=== PATIENT | male | born 1960 | race Caucasian/White ===

== ENCOUNTER 2020-09-28 09:40 | Outpatient (REF) | payer BC, SELFPAY ==
[2020-09-28 10:18] LABS: MANUAL DIFF FLAG NO
[2020-09-28 10:21] LABS: Basophils Absolute Auto 0.1 X10*3/uL (0.0-0.2); Basophils Percent Auto 0.6 % (0-2); Eosinophils Absolute Auto 0.3 X10*3/uL (0.0-0.4); Eosinophils Percent Auto 3.1 % (0-4); Hematocrit 40.4 % (42-52); Hemoglobin 13.5 g/dl (14.0-18.0); Imm Gran Abs Auto 0.13 X10*3/uL (0.00-0.03); Imm Gran Pct Auto 1.5 % (0.0-0.4); Lymphocytes Absolute Auto 1.6 X10*3/uL (1.2-4.9); Lymphocytes Percent Auto 17.6 % (20-40); Mean Corpuscular HGB Conc 33.4 g/dl (31.0-36.0); Mean Corpuscular Hemoglobin 30.6 pg (27.0-33.0); Mean Corpuscular Volume 91.6 fL (80-98); Mean Platelet Volume 9.1 fL (9.4-12.4); Monocytes Absolute Auto 0.9 X10*3/uL (0.1-1.2); Monocytes Percent Auto 9.9 % (2-11); Neutrophils Percent Auto 67.3 % (45-73); Platelet Count 311 X10*3/uL (160-400); Red Blood Count 4.41 X10*6/uL (4.60-5.80); Red Cell Distribution Width 12.8 % (11.0-16.0); White Blood Count 8.9 X10*3/uL (4.8-10.8)
[2020-09-28 10:41] LABS: Alanine Aminotransferase 46 U/L (0-40); Albumin Level 4.4 g/dL (3.5-5.0); Alkaline Phosphatase 75 U/L (39-117); Anion Gap 11 (12-20); Aspartate Amino Transferase 27 U/L (5-37); Bilirubin Total 0.5 mg/dL (0.0-1.0); Blood Urea Nitrogen 22 mg/dL (9-16); Calcium 9.1 mg/dL (8.4-10.2); Carbon Dioxide 29 mmol/L (22-29); Chloride 105 mmol/L (96-108); Cholesterol 195 mg/dL; Estimated Glomerular Filt Rate > 60; Glucose Fasting 97 mg/dL (60-99); HDL Cholesterol 50 mg/dL; LDL Cholesterol Calculated 125 mg/dl; Potassium 4.2 mmol/l (3.3-5.1); Sodium 141 mmol/L (135-145); Total Protein 6.5 g/dL (6.5-8.0); Triglycerides 100 mg/dL
[2020-09-28 11:03] LABS: HIV AB/AG Nonreactive (Nonreactive); HIV Num 1 0.16 S/CO (0.00-0.99)
== END 2020-09-28 09:41 | disposition home or self-care (01) ==
LOC: HO.LAB 09:40
PROVIDERS: PCP Internal Medicine Medical Oncology; Visit Provider Internal Medicine Medical Oncology
DX: N40.0 Benign prostatic hyperplasia without lower urinary tract symptoms (principal); E78.2 Mixed hyperlipidemia; I10 Essential (primary) hypertension; E66.3 Overweight
CPT/HCPCS: 36415; 80053; 80061; 85025; 87389

== ENCOUNTER 2021-01-24 08:04 | Outpatient (REF) | payer BC, SELFPAY ==
[2021-01-24 08:39] LABS: MANUAL DIFF FLAG NO
[2021-01-24 08:55] LABS: Basophils Absolute Auto 0.1 X10*3/uL (0.0-0.2); Basophils Percent Auto 0.8 % (0-2); Eosinophils Absolute Auto 0.3 X10*3/uL (0.0-0.4); Hematocrit 45.6 % (42-52); Hemoglobin 15.1 g/dl (14.0-18.0); Imm Gran Abs Auto 0.06 X10*3/uL (0.00-0.03); Imm Gran Pct Auto 0.8 % (0.0-0.4); Lymphocytes Absolute Auto 1.5 X10*3/uL (1.2-4.9); Lymphocytes Percent Auto 18.6 % (20-40); Mean Corpuscular HGB Conc 33.1 g/dl (31.0-36.0); Mean Corpuscular Hemoglobin 29.4 pg (27.0-33.0); Mean Corpuscular Volume 88.7 fL (80-98); Mean Platelet Volume 9.3 fL (9.4-12.4); Monocytes Percent Auto 12.3 % (2-11); Neutrophils Percent Auto 63.5 % (45-73); Platelet Count 330 X10*3/uL (160-400); Red Blood Count 5.14 X10*6/uL (4.60-5.80); Red Cell Distribution Width 12.2 % (11.0-16.0); White Blood Count 7.8 X10*3/uL (4.8-10.8)
[2021-01-24 09:23] LABS: HIV AB/AG Nonreactive (Nonreactive); HIV Num 1 0.06 S/CO (0.00-0.99)
[2021-01-24 09:49] LABS: Alanine Aminotransferase 52 U/L (0-40); Albumin Level 4.6 g/dL (3.5-5.0); Alkaline Phosphatase 85 U/L (39-117); Anion Gap 12 (12-20); Aspartate Amino Transferase 36 U/L (5-37); Bilirubin Total 0.8 mg/dL (0.0-1.0); Blood Urea Nitrogen 20 mg/dL (9-16); Calcium 9.8 mg/dL (8.4-10.2); Carbon Dioxide 28 mmol/L (22-29); Chloride 105 mmol/L (96-108); Cholesterol 209 mg/dL; Estimated Glomerular Filt Rate 57; Glucose Fasting 110 mg/dL (60-99); HDL Cholesterol 49 mg/dL; LDL Cholesterol Calculated 146 mg/dl; Potassium 4.1 mmol/L (3.3-5.1); Sodium 141 mmol/L (135-145); Triglycerides 73 mg/dL
[2021-01-24 10:10] LABS: Prostate Specific Antigen 2.96 ng/mL (<0.05-4.0); Vitamin D 25-OH Total 28.9 ng/mL (>30)
== END 2021-01-24 08:05 | disposition home or self-care (01) ==
LOC: HO.LAB 08:04
PROVIDERS: PCP Internal Medicine Medical Oncology; Visit Provider Internal Medicine Medical Oncology
DX: N40.0 Benign prostatic hyperplasia without lower urinary tract symptoms (principal); E78.2 Mixed hyperlipidemia; I10 Essential (primary) hypertension; E66.3 Overweight; Z12.5 Encounter for screening for malignant neoplasm of prostate
CPT/HCPCS: 36415; 80053; 80061; 82306; 84153; 85025; 87389

== ENCOUNTER 2021-06-13 08:33 | Outpatient (REF) | payer BC, SELFPAY ==
[2021-06-13 09:18] LABS: MANUAL DIFF FLAG NO
[2021-06-13 09:25] LABS: Basophils Absolute Auto 0.1 X10*3/uL (0.0-0.2); Basophils Percent Auto 0.6 % (0-2); Eosinophils Absolute Auto 0.4 X10*3/uL (0.0-0.4); Eosinophils Percent Auto 5.2 % (0-4); Hematocrit 44.9 % (42-52); Hemoglobin 14.7 g/dl (14.0-18.0); Imm Gran Abs Auto 0.12 X10*3/uL (0.00-0.03); Imm Gran Pct Auto 1.5 % (0.0-0.4); Lymphocytes Absolute Auto 1.4 X10*3/uL (1.2-4.9); Lymphocytes Percent Auto 17.5 % (20-40); Mean Corpuscular HGB Conc 32.7 g/dl (31.0-36.0); Mean Corpuscular Hemoglobin 29.5 pg (27.0-33.0); Mean Corpuscular Volume 90.2 fL (80-98); Mean Platelet Volume 9.3 fL (9.4-12.4); Monocytes Absolute Auto 0.8 X10*3/uL (0.1-1.2); Monocytes Percent Auto 9.7 % (2-11); Neutrophils Absolute Auto 5.2 X10*3/uL (2.0-8.3); Neutrophils Percent Auto 65.5 % (45-73); Platelet Count 310 X10*3/uL (160-400); Red Blood Count 4.98 X10*6/uL (4.60-5.80); Red Cell Distribution Width 12.9 % (11.0-16.0)
[2021-06-13 10:06] LABS: Alanine Aminotransferase 34 U/L (0-40); Albumin Level 4.5 g/dL (3.5-5.0); Alkaline Phosphatase 75 U/L (39-117); Anion Gap 12 (12-20); Aspartate Amino Transferase 25 U/L (5-37); Bilirubin Total 0.6 mg/dL (0.0-1.0); Blood Urea Nitrogen 22 mg/dL (9-16); Calcium 9.7 mg/dL (8.4-10.2); Carbon Dioxide 30 mmol/L (22-29); Chloride 103 mmol/L (96-108); Cholesterol 196 mg/dL; Estimated Glomerular Filt Rate > 60; Glucose Fasting 97 mg/dL (60-99); HDL Cholesterol 50 mg/dL; LDL Cholesterol Calculated 123 mg/dl; Potassium 4.5 mmol/L (3.3-5.1); Sodium 140 mmol/L (135-145); Total Protein 6.7 g/dL (6.5-8.0); Triglycerides 118 mg/dL
[2021-06-13 10:17] LABS: HIV AB/AG Nonreactive (Nonreactive); HIV Num 1 0.08 S/CO (0.00-0.99)
== END 2021-06-13 08:34 | disposition home or self-care (01) ==
LOC: HO.LAB 08:33
PROVIDERS: PCP Internal Medicine Medical Oncology; Visit Provider Internal Medicine Medical Oncology
DX: Z00.00 Encounter for general adult medical examination without abnormal findings (principal); E78.2 Mixed hyperlipidemia; E66.3 Overweight; Z20.6 Contact with and (suspected) exposure to human immunodeficiency virus [HIV]
CPT/HCPCS: 36415; 80053; 80061; 85025; 87389

== ENCOUNTER 2021-10-11 09:21 | Outpatient (REF) | payer BC, SELFPAY ==
[2021-10-11 09:53] LABS: MANUAL DIFF FLAG NO
[2021-10-11 10:34] LABS: Basophils Percent Auto 0.4 % (0-2); Eosinophils Absolute Auto 0.2 X10*3/uL (0.0-0.4); Eosinophils Percent Auto 2.7 % (0-4); Hematocrit 44.4 % (42.0-52.0); Hemoglobin 14.5 g/dl (14.0-18.0); Imm Gran Abs Auto 0.07 X10*3/uL (0.00-0.03); Imm Gran Pct Auto 0.8 % (0.0-0.4); Lymphocytes Absolute Auto 1.6 X10*3/uL (1.2-4.9); Mean Corpuscular HGB Conc 32.7 g/dl (31.0-36.0); Mean Corpuscular Hemoglobin 29.8 pg (27.0-33.0); Mean Corpuscular Volume 91.4 fL (80.0-98.0); Mean Platelet Volume 9.1 fL (9.4-12.4); Monocytes Absolute Auto 0.8 X10*3/uL (0.1-1.2); Monocytes Percent Auto 9.4 % (2-11); Neutrophils Absolute Auto 5.7 x10*3/uL (2.0-8.3); Neutrophils Percent Auto 67.7 % (45-73); Platelet Count 329 X10*3/uL (160-400); Red Blood Count 4.86 X10*6/uL (4.60-5.80); Red Cell Distribution Width 12.4 % (11.0-16.0); White Blood Count 8.4 X10*3/uL (4.8-10.8)
[2021-10-11 11:07] LABS: Alanine Aminotransferase 49 U/L (0-40); Albumin Level 4.6 g/dL (3.5-5.0); Alkaline Phosphatase 71 U/L (39-117); Anion Gap 12 (12-20); Aspartate Amino Transferase 34 U/L (5-37); Bilirubin Total 0.7 mg/dL (0.0-1.0); Blood Urea Nitrogen 27 mg/dL (9-16); Calcium 10.1 mg/dL (8.4-10.2); Carbon Dioxide 29 mmol/L (22-29); Chloride 105 mmol/L (96-108); Cholesterol 195 mg/dL; Estimated Glomerular Filt Rate > 60; Glucose Fasting 101 mg/dL (60-99); HDL Cholesterol 59 mg/dL; LDL Cholesterol Calculated 122 mg/dl; Potassium 4.3 mmol/L (3.3-5.1); Sodium 142 mmol/L (135-145); Triglycerides 71 mg/dL
[2021-10-11 11:17] LABS: HIV AB/AG Nonreactive (Nonreactive); HIV Num 1 0.07 S/CO (0.00-0.99)
== END 2021-10-11 09:22 | disposition home or self-care (01) ==
LOC: HO.LAB 09:21
PROVIDERS: PCP Internal Medicine Medical Oncology; Visit Provider Internal Medicine Medical Oncology
DX: Z11.4 Encounter for screening for human immunodeficiency virus [HIV] (principal); N40.0 Benign prostatic hyperplasia without lower urinary tract symptoms; E78.2 Mixed hyperlipidemia; Z20.6 Contact with and (suspected) exposure to human immunodeficiency virus [HIV]
CPT/HCPCS: 36415; 80053; 80061; 85025; 87389

== ENCOUNTER 2022-02-06 07:16 | Outpatient (REF) | payer BC, SELFPAY ==
[2022-02-06 07:51] LABS: MANUAL DIFF FLAG NO
[2022-02-06 08:03] LABS: Basophils Absolute Auto 0.1 X10*3/uL (0.0-0.2); Basophils Percent Auto 0.8 % (0-2); Eosinophils Absolute Auto 0.4 X10*3/uL (0.0-0.4); Eosinophils Percent Auto 4.1 % (0-4); Hemoglobin 15.2 g/dl (14.0-18.0); Imm Gran Abs Auto 0.09 X10*3/uL (0.00-0.03); Imm Gran Pct Auto 1.1 % (0.0-0.4); Lymphocytes Absolute Auto 1.4 X10*3/uL (1.2-4.9); Lymphocytes Percent Auto 16.7 % (20-40); Mean Corpuscular Hemoglobin 29.5 pg (27.0-33.0); Mean Corpuscular Volume 89.1 fL (80.0-98.0); Mean Platelet Volume 9.3 fL (9.4-12.4); Monocytes Absolute Auto 0.8 X10*3/uL (0.1-1.2); Monocytes Percent Auto 9.5 % (2-11); Neutrophils Absolute Auto 5.8 x10*3/uL (2.0-8.3); Neutrophils Percent Auto 67.8 % (45-73); Platelet Count 320 X10*3/uL (160-400); Red Blood Count 5.16 X10*6/uL (4.60-5.80); Red Cell Distribution Width 12.2 % (11.0-16.0); White Blood Count 8.5 X10*3/uL (4.8-10.8)
[2022-02-06 08:30] LABS: Alanine Aminotransferase 53 U/L (0-40); Albumin Level 4.4 g/dL (3.5-5.0); Alkaline Phosphatase 83 U/L (39-117); Anion Gap 13 (12-20); Aspartate Amino Transferase 29 U/L (5-37); Bilirubin Total 0.6 mg/dL (0.0-1.0); Blood Urea Nitrogen 19 mg/dL (9-16); Calcium 10.1 mg/dL (8.4-10.2); Carbon Dioxide 28 mmol/L (22-29); Chloride 104 mmol/L (96-108); Estimated Glomerular Filt Rate > 60; Glucose Fasting 108 mg/dL (60-99); Potassium 4.9 mmol/L (3.3-5.1); Sodium 140 mmol/L (135-145); Total Protein 7.1 g/dL (6.5-8.0)
[2022-02-06 08:47] LABS: HIV AB/AG Nonreactive (Nonreactive); HIV Num 1 0.05 S/CO (0.00-0.99)
== END 2022-02-06 07:17 | disposition home or self-care (01) ==
LOC: HO.LAB 07:16
PROVIDERS: PCP Internal Medicine Medical Oncology; Visit Provider Internal Medicine Medical Oncology
DX: Z11.4 Encounter for screening for human immunodeficiency virus [HIV] (principal); I10 Essential (primary) hypertension; R97.20 Elevated prostate specific antigen [PSA]; Z20.6 Contact with and (suspected) exposure to human immunodeficiency virus [HIV]
CPT/HCPCS: 36415; 80053; 85025; 87389

== ENCOUNTER 2022-08-28 08:41 | Outpatient (REF) | payer BC, SELFPAY ==
[2022-08-28 09:02] LABS: MANUAL DIFF FLAG NO
[2022-08-28 09:55] LABS: Basophils Absolute Auto 0.1 X10*3/uL (0.0-0.2); Eosinophils Absolute Auto 0.4 X10*3/uL (0.0-0.4); Eosinophils Percent Auto 6.1 % (0-4); Hematocrit 42.7 % (42.0-52.0); Hemoglobin 14.2 g/dl (14.0-18.0); Imm Gran Abs Auto 0.05 X10*3/uL (0.00-0.03); Imm Gran Pct Auto 0.7 % (0.0-0.4); Lymphocytes Absolute Auto 1.4 X10*3/uL (1.2-4.9); Mean Corpuscular HGB Conc 33.3 g/dl (31.0-36.0); Mean Corpuscular Hemoglobin 29.9 pg (27.0-33.0); Mean Corpuscular Volume 89.9 fL (80.0-98.0); Mean Platelet Volume 9.5 fL (9.4-12.4); Monocytes Absolute Auto 0.8 X10*3/uL (0.1-1.2); Monocytes Percent Auto 11.3 % (2-11); Neutrophils Absolute Auto 4.5 x10*3/uL (2.0-8.3); Neutrophils Percent Auto 61.9 % (45-73); Platelet Count 313 X10*3/uL (160-400); Red Blood Count 4.75 X10*6/uL (4.60-5.80); Red Cell Distribution Width 12.5 % (11.0-16.0); White Blood Count 7.3 X10*3/uL (4.8-10.8)
[2022-08-28 10:32] LABS: HIV AB/AG Nonreactive (Nonreactive); HIV Num 1 0.07 S/CO (0.00-0.99)
[2022-08-28 11:24] LABS: Alanine Aminotransferase 40 U/L (0-40); Albumin Level 4.3 g/dL (3.5-5.0); Alkaline Phosphatase 79 U/L (39-117); Anion Gap 11 (12-20); Aspartate Amino Transferase 24 U/L (5-37); Bilirubin Total 0.6 mg/dL (0.0-1.0); Blood Urea Nitrogen 23 mg/dL (9-16); Calcium 9.4 mg/dL (8.4-10.2); Carbon Dioxide 29 mmol/L (22-29); Chloride 108 mmol/L (96-108); Cholesterol 182 mg/dL; Estimated Glomerular Filt Rate > 60; Glucose Fasting 101 mg/dL (60-99); HDL Cholesterol 41 mg/dL; LDL Cholesterol Calculated 118 mg/dl; Potassium 4.5 mmol/L (3.3-5.1); Sodium 143 mmol/L (135-145); Total Protein 6.4 g/dL (6.5-8.0); Triglycerides 117 mg/dL
[2022-08-28 11:53] LABS: Prostate Specific Antigen 3.41 ng/mL (<0.05-4.0)
== END 2022-08-28 08:42 | disposition home or self-care (01) ==
LOC: HO.LAB 08:41
PROVIDERS: PCP Internal Medicine Medical Oncology; Visit Provider Internal Medicine Medical Oncology
DX: Z11.4 Encounter for screening for human immunodeficiency virus [HIV] (principal); Z12.5 Encounter for screening for malignant neoplasm of prostate; Z20.6 Contact with and (suspected) exposure to human immunodeficiency virus [HIV]
CPT/HCPCS: 36415; 80053; 80061; 84153; 85025; 87389

== ENCOUNTER 2022-12-25 08:20 | Outpatient (REF) | payer BC, SELFPAY ==
[2022-12-25 08:41] LABS: MANUAL DIFF FLAG NO
[2022-12-25 09:05] LABS: Basophils Absolute Auto 0.1 X10*3/uL (0.0-0.2); Basophils Percent Auto 0.9 % (0-2); Eosinophils Absolute Auto 0.4 X10*3/uL (0.0-0.4); Eosinophils Percent Auto 4.8 % (0-4); Hematocrit 45.6 % (42.0-52.0); Hemoglobin 15.2 g/dl (14.0-18.0); Imm Gran Abs Auto 0.07 X10*3/uL (0.00-0.03); Imm Gran Pct Auto 0.8 % (0.0-0.4); Lymphocytes Absolute Auto 1.5 X10*3/uL (1.2-4.9); Lymphocytes Percent Auto 16.8 % (20-40); Mean Corpuscular HGB Conc 33.3 g/dl (31.0-36.0); Mean Corpuscular Hemoglobin 29.2 pg (27.0-33.0); Mean Corpuscular Volume 87.5 fL (80.0-98.0); Mean Platelet Volume 9.1 fL (9.4-12.4); Monocytes Absolute Auto 0.9 X10*3/uL (0.1-1.2); Monocytes Percent Auto 9.7 % (2-11); Neutrophils Absolute Auto 6.1 x10*3/uL (2.0-8.3); Platelet Count 314 X10*3/uL (160-400); Red Blood Count 5.21 X10*6/uL (4.60-5.80); Red Cell Distribution Width 12.6 % (11.0-16.0)
[2022-12-25 09:47] LABS: Alanine Aminotransferase 49 U/L (0-40); Albumin Level 4.6 g/dL (3.5-5.0); Alkaline Phosphatase 90 U/L (39-117); Anion Gap 14 (12-20); Aspartate Amino Transferase 31 U/L (5-37); Bilirubin Total 0.8 mg/dL (0.0-1.0); Blood Urea Nitrogen 25 mg/dL (9-16); Calcium 9.8 mg/dL (8.4-10.2); Carbon Dioxide 28 mmol/L (22-29); Chloride 104 mmol/L (96-108); Cholesterol 226 mg/dL; Estimated Glomerular Filt Rate 56; Glucose Fasting 95 mg/dL (60-99); HDL Cholesterol 46 mg/dL; LDL Cholesterol Calculated 150 mg/dl; Sodium 142 mmol/L (135-145); Triglycerides 151 mg/dL
[2022-12-25 10:07] LABS: Prostate Specific Antigen 2.39 ng/mL (<0.05-4.0)
[2022-12-25 10:08] LABS: HIV AB/AG Nonreactive (Nonreactive); HIV Num 1 0.06 S/CO (0.00-0.99)
== END 2022-12-25 08:21 | disposition home or self-care (01) ==
LOC: HO.LAB 08:20
PROVIDERS: PCP Internal Medicine Medical Oncology; Visit Provider Internal Medicine Medical Oncology
DX: Z12.5 Encounter for screening for malignant neoplasm of prostate (principal); Z11.4 Encounter for screening for human immunodeficiency virus [HIV]; N40.0 Benign prostatic hyperplasia without lower urinary tract symptoms; E78.2 Mixed hyperlipidemia; I10 Essential (primary) hypertension; R97.20 Elevated prostate specific antigen [PSA]
CPT/HCPCS: 36415; 80053; 80061; 84153; 85025; 87389

== ENCOUNTER 2023-09-06 06:55 | Outpatient (REF) | payer BC, SELFPAY ==
[2023-09-06 07:10] LABS: MANUAL DIFF FLAG NO
[2023-09-06 07:52] LABS: Basophils Absolute Auto 0.1 X10*3/uL (0.0-0.2); Basophils Percent Auto 0.9 % (0-2); Eosinophils Absolute Auto 0.4 X10*3/uL (0.0-0.4); Eosinophils Percent Auto 4.1 % (0-4); Hematocrit 47.9 % (42.0-52.0); Hemoglobin 15.7 g/dl (14.0-18.0); Imm Gran Abs Auto 0.11 X10*3/uL (0.00-0.03); Imm Gran Pct Auto 1.2 % (0.0-0.4); Lymphocytes Absolute Auto 1.6 X10*3/uL (1.2-4.9); Lymphocytes Percent Auto 16.7 % (20-40); Mean Corpuscular HGB Conc 32.8 g/dl (31.0-36.0); Mean Corpuscular Hemoglobin 29.5 pg (27.0-33.0); Mean Platelet Volume 8.9 fL (9.4-12.4); Monocytes Absolute Auto 0.8 X10*3/uL (0.1-1.2); Monocytes Percent Auto 8.6 % (2-11); Neutrophils Absolute Auto 6.4 x10*3/uL (2.0-8.3); Neutrophils Percent Auto 68.5 % (45-73); Platelet Count 437 X10*3/uL (160-400); Red Blood Count 5.32 X10*6/uL (4.60-5.80); Red Cell Distribution Width 12.2 % (11.0-16.0); White Blood Count 9.3 X10*3/uL (4.8-10.8)
[2023-09-06 08:14] LABS: Alanine Aminotransferase 43 U/L (0-40); Albumin Level 4.7 g/dL (3.5-5.0); Alkaline Phosphatase 83 U/L (39-117); Anion Gap 13 (12-20); Aspartate Amino Transferase 28 U/L (5-37); Bilirubin Total 0.5 mg/dL (0.0-1.0); Blood Urea Nitrogen 17 mg/dL (9-16); Calcium 10.1 mg/dL (8.4-10.2); Carbon Dioxide 28 mmol/L (22-29); Chloride 105 mmol/L (96-108); Cholesterol 219 mg/dL (<200); Estimated Glomerular Filt Rate > 60; Glucose Random 120 mg/dL (60-115); HDL Cholesterol 48 mg/dL (>40); LDL Cholesterol Calculated 143 mg/dL (<100); Sodium 142 mmol/L (135-145); Total Protein 7.8 g/dL (6.5-8.0); Triglycerides 144 mg/dL (<150)
[2023-09-06 08:24] LABS: HIV AB/AG Nonreactive (Nonreactive); HIV Num 1 0.04 S/CO (0.00-0.99)
[2023-09-06 08:33] LABS: Prostate Specific Antigen 3.25 ng/mL (<0.05-4.0)
== END 2023-09-06 06:56 | disposition home or self-care (01) ==
LOC: HO.LAB 06:55
PROVIDERS: PCP Internal Medicine Medical Oncology; Visit Provider Internal Medicine Medical Oncology
DX: Z12.5 Encounter for screening for malignant neoplasm of prostate (principal); Z11.4 Encounter for screening for human immunodeficiency virus [HIV]; I10 Essential (primary) hypertension; E78.2 Mixed hyperlipidemia; E66.3 Overweight; R97.20 Elevated prostate specific antigen [PSA]
CPT/HCPCS: 36415; 80053; 80061; 84153; 85025; 87389

== ENCOUNTER 2024-09-12 06:56 | Outpatient (REF) | payer MEDICARE, BC, SELFPAY ==
--- OUTSIDE RECORDS SUMMARY | 2024-09-12 07:01 | XMS_ITS ---
Author Organization Ramon Duenas III, MD Address [address] [place] [address] [place] [address] Care Team Providers Care Soa Integration Developer Name Role Phone Ramon Duenas Primary Care Provider REASON FOR VISIT wants lab order Social History Sex Assigned At : Social History Observation Description Sex Assigned At Male Encounters Encounter Location Date Provider Diagnosis Ramon Duenas III, MD [address] [place] [address] [place] [address] 06/23/2024 Ramon Duenas HIV exposure Z20.6 Assessments Encounter Date Diagnosis (ICD Code) Assessment Notes Treatment Notes Treatment Clinical Notes 06/23/2024 HIV exposure (ICD-10 - Z20.6) Plan Of Treatment Pending Test Test Name Order Date HIV AG/AB 06/23/2024 Next Appt Details Provider Name:Ramon Duenas, 09/15/2024 11:00:00 AM, [address] [place] [address] [place], [address], Progress Notes * Kenny DE LA FUENTEDOB:1960 ( 64 yo M)Acc No.[id number]:06/23/2024 Patient:?Kenny DE LA FUENTE :1960???Age:64 Y???Sex:Male Address:[address] [place] [address], Subjective: * Chief Complaints: * ???Wants lab order * Medical History:? * Surgical History:? * Hospitalization/Major Diagno stic Procedure:? * Medications:? Objective: * Vitals:? * Physical Examination:? Assessment: * Assessment: 1.?HIV exposure - Z20.6??? Plan: * Treatment: * Procedure Codes:? * true * Date:? Generated for Delvin hawkins/Bennett/Aicha on:?09/12/2024 07:01 AM EST
--- OUTSIDE RECORDS SUMMARY | 2024-09-12 07:02 | XMS_ITS ---
Author Organization Ramon Duenas III, MD Address [address] [place] [address] Care Team Providers Care Track Superintendent Name Role Phone Ramon Duenas Primary Care Provider [phone] Allergies Allergen (clinical drug ingredient) Drug/Non Drug Allergy documented on EMR Reaction Allergy Type Onset Date Status Grass Pollen Standardized Ext Unknown Drug Allergy Active Mold Unknown Allergy Active Dust Mites Unknown Allergy Active Latex Latex Unknown Allergy Active Neosporin Unknown Drug Allergy Active REASON FOR VISIT Right shoulder pain, Colonic polyp, Benign prostatic hypertrophy, Hyperlipidemia, Her Medications Medication SIG (Take, Route, Frequency, Duration) Notes Start Date End Date Status hydroCHLOROthiazide 12.5 MG TAKE 1 TABLE T BY MOUTH DAILY IN THE MORNING Active Omeprazole 40 MG TAKE 1 CAPSULE BY MO [facility] ONCE DAILY 1/2 HOUR BEFORE BREAKFAST Active Viagra 100 MG 1 tablet as needed Orally Once a day as needed Active Omeprazole 20 MG TAKE 1 CAPSULE BY MO UT DAILY 1/2 HOUR BEFORE BREAKFAST Active Omeprazole 20 MG 1 tablet 30 minutes before morning meal Orally Once a day 09/08/2019 Active Finasteride 5 MG 1 tablet Orally Once a day Active Irbesartan 300 MG TAKE 1 TABLET BY JAKE TH DAILY Active Fish Oil 1000 MG 2 capsule Orally Onc e a day Active Simvastatin 40 MG 1 tablet in the even ing Orally Once a day Active Aspirin Adult Low Dose 81 MG 1 tablet Or ally Once a day Active Social History Tobacco Use: Social History Observation Description Date Details (start date - stop date) Former Smoker NA - NA Sex Assigned At : Social History Observation Description Sex Assigned At Male Tobacco Use/Smoking Question Answer Notes Patient is a former smoker How long has it been since you last smoked? > 10 years Additional Findings: Tobacco Non-User Ex-cigaret te smoker Vital Signs Temperature 97.9 degrees Fahrenheit 04/07/20 24 Blood pressure systolic 141 mm Hg 04/07/20 24 Blood pressure diastolic 77 mm Hg 024 Heart Rate 90 /min 04/07/2024 Height 73 in 04/07/2024 Weight 214 lbs 04/07/2024 BMI 28.23 kg/m2 04/07/2024 Encounters Encounter Location Date Provider Diagnosis Ramon Duenas III, MD [address] [place] [address] [place] [address] 04/07/2024 Ramon Duenas Adenomatous polyp of sigmoid colon D12.5 ; Genital warts A63.0 ; Benign prostatic hyperplasia without lower urinary tract symptoms N40.0 ; Mixed hyperlipidemia E78.2 ; GERD without esophagitis K21.9 ; Essential hypertension I10 ; Elevated PSA R97.20 ; Overweight E66.3 and Former smoker Z87.891 Assessments Encounter Date Diagnosis (ICD Code) Assessment Notes Treat ment Notes Treatment Clinical Notes 04/07/2024 Adenomatous polyp of sigmoid colon (ICD-10 - D12.5) The polyp was removed. He will undergo colonoscopy every 5 years. 04/07/2024 Genital warts (ICD-1 0 - A63.0) He has not had a recurrence since his initial treatment. 04/07/2024 Benign prostatic hyperplasia without lower urinary tract symptoms (ICD-10 - N40.0) His nocturia has diminished since he began to employ lifestyle modification. 04/07/2024 Mixed hyperlipidemia (ICD-10 - E78.2) His lipids are currently stable with a total cholesterol 219. His triglycerides are 144. I recommend aggressive weight loss and a diet restrricted in calories and sodium combined with regular physical activity. 04/07/2024 GERD without esophagitis (ICD-10 - K21.9) He is going to take omeprazole 20 mg daily and uses a liquid antacid such as Maalox or Mylanta for breakthrough heartburn. 04/07/2024 Essential hypertension (ICD-10 - I10) His blood pressure is currently stable at 141/77. No change in his regimen was necessary. I recommended weight reduction and sodium restriction. Although the systolic is slightly elevated he did not wish more medication. We reviewed the use of sodium restriction weight reduction is no activity in lowering blood pressure. 04/07/2024 Elevated PSA (ICD-10 - R97.20) His PSA is currently in the normal range and will be followed carefully. 04/07/2024 Overweight (ICD-10 - E66.3) He remains somewhat overweight. We discussed his diet and his nutrition. We made a plan to lose weight at a rate of one half of a pound per week through a diet restricted in calories. I recommended regular physical activity as well. 04/07/2024 Former smoker (ICD-1 0 - Z87.891) He has a plan in place to prevent relapse in times of stress and illness. Plan Of Treatment Medication Medication Name Sig Start Date Stop Date Notes hydroCHLOROthiazide 12.5 MG TAKE 1 TABLE T BY MOUTH DAILY IN THE MORNING Omeprazole 40 MG TAKE 1 CAPSULE BY MO UT ONCE DAILY 1/2 HOUR BEFORE BREAKFAST Viagra 100 MG 1 tablet as needed O rally Once a day as needed Omeprazole 20 MG TAKE 1 CAPSULE BY MO UTH DAILY 1/2 HOUR BEFORE BREAKFAST Omeprazole 20 MG 1 tablet 30 minutes before morning meal Orally Once a day 09/08/2019 Finasteride 5 MG 1 tablet Orally Once a day Irbesartan 300 MG TAKE 1 TABLET BY MOUTH DAILY Fish Oil 1000 MG 2 capsule Orally Once a day Simvastatin 40 MG 1 tablet in the even ing Orally Once a day Aspirin Adult Low Dose 81 MG 1 tablet Orally Once a day Next Appt Details Follow Up: As Scheduled, [place] son: OV Provider Name:Ramon Duenas, 09/15/2024 11:00:00 AM, [address] [place] [address] [place], [address], Progress Notes * Kenny DE LA FUENTEDOB:1960 ( 64 yo M)Acc No.[id number]:04/07/2024 Progress Notes Patient:?Kenny De La Fuente Provider:?Ramon Duenas MD :1960???Age:64 Y???Sex:Male Emmett e:04/07/2024 Address:[address] [place] [phone] Subjective: * Chief Complaints: * ???Right shoulder painColoni c polypBenign prostatic hypertrophyHyperlipidemiaHer * HPI: ???COVID-19 Screening:? He returns to the office to follow-up on his shoulder pain. He had multiple complaints today. The shoulder continues to hurt and x-rays have shown arthritis. He saw the synthetic filament spinner, Dr. Carr who gave him 2 cortisone shots. The pain today is in the muscle of the posterior shoulder over the scapula. He recently had an upper endoscopy and colonoscopy. There was a tubular adenoma in the sigmoid colon. A submucosal mass in the stomach was a leiomyoma. He denies any recent nocturia. ?Questions?Have you experienced fever, chills, cough, sore throat, shortness of breath, difficulty breathing, muscle aches, loss of taste or smell??No ?Have you been exposed to the virus within the last 10 days??No ?Have you travelled internationally in the last 10 days??No ?Have you been exposed to COVID-19 in the past??Yes * ROS:?General/Constitutional:?pain?only normal aches and pains.?Chills?denies.?Fatigue?admits.?Fever?denies.?ENT:?Decreased hearing?denies.?Respiratory:?Cough?denies.?Cardiovascular:?Chest pain with exertion?denies.?Dyspnea on exertion?denies.?Shortness of breath?denies.?Gastrointestinal:?Constipation?occasional.?Decreased appetite?denies.?Diarrhea?denies.?Heartburn?denies.?Nausea?denies.?Rectal bleeding?denies.?Vomiting?denies.?Hematology:?bruising?denies.?petechiae?denies.?Swollen glands?none have been noted.?Genitourinary:?Frequent urination?once a night.?Musculoskeletal:?Muscle aches?denies.?Painful joints?denies.?Sciatica?denies.?Weakness?denies.?Skin:?Itching?denies.?Rash?denies.?Skin lesion(s)?denies.?Neurologic:?Difficulty speaking?denies.?Dizziness?denies.?Headache?denies.?Low back pain?denies.?Psychiatric:?Depressed mood?denies.? * Medical History:? * Surgical History:?BENIGN CYS T REMOVED 2003colonoscopy, benign findings 07/2018left fifth finger injury * Hospitalization/Major Diagno stic Procedure:?Denies Past Hospitalization * Family History:?Father: dece ased 74 yrs, Liver cancer, diagnosed with Cancer.?Mother: 83 yrs, Dementia, coronary artery disease, hypertension, diagnosed with HTN.?2 brother(s) , 1 sister(s) - healthy. .? His sister has osteoarthritis. His brother has adenomatous polyps in the colon, cardiac illness. Mother passed in January 2019 . * Social History:?Tobacco Use:?Tobacco Use/Smoking?Patient is a?former smoker ?How long has it been since you last smoked??> 10 years ?Additional Findings: Tobacco Non-User?Ex-cigarette smoker ???He was born in [place], [place] and lives in [place]. He has been to [place] for 10 years. She is 20 years older than he is and has 4 children. He has no children. He works at [employer]. He has no toxic exposures. * Medications:?TakingOmeprazol e 40 MG Capsule Delayed Release TAKE 1 CAPSULE BY MOUTH ONCE DAILY 1/2 HOUR BEFORE BREAKFAST hydroCHLOROthiazide 12.5 MG Tablet TAKE 1 TABLET BY MOUTH DAILY IN THE MORNING Viagra 100 MG Tablet 1 tablet as needed Orally Once a day as neededAspirin Adult Low Dose 81 MG Tablet Delayed Release 1 tablet Orally Once a daySimvastatin 40 MG Tablet 1 tablet in the evening Orally Once a dayFish Oil 1000 MG Capsule 2 capsule Orally Once a dayFinasteride 5 MG Tablet 1 tablet Orally Once a dayIrbesartan 300 MG Tablet TAKE 1 TABLET BY MOUTH DAILY Taking Omeprazole 40 MG Capsule Delayed Release TAKE 1 CAPSULE BY MOUTH ONCE DAILY 1/2 HOUR BEFORE BREAKFAST Taking hydroCHLOROthiazide 12.5 MG Tablet TAKE 1 TABLET BY MOUTH DAILY IN THE MORNING Taking Viagra 100 MG Tablet 1 tablet as needed Orally Once a day as neededTaking Aspirin Adult Low Dose 81 MG Tablet Delayed Release 1 tablet Orally Once a dayTaking Simvastatin 40 MG Tablet 1 tablet in the evening Orally Once a dayTaking Fish Oil 1000 MG Capsule 2 capsule Orally Once a dayTaking Finasteride 5 MG Tablet 1 tablet Orally Once a dayTaking Irbesartan 300 MG Tablet TAKE 1 TABLET BY MOUTH DAILY DiscontinuedOmeprazole 20 MG Tablet Delayed Release 1 tablet 30 minutes before morning meal Orally Once a dayOmeprazole 20 MG Capsule Delayed Release TAKE 1 CAPSULE BY MOUTH DAILY 1/2 HOUR BEFORE BREAKFAST Medication List reviewed and reconciled with the patientDiscontinued Omeprazole 20 MG Tablet Delayed Release 1 tablet 30 minutes before morning meal Orally Once a dayDiscontinued Omeprazole 20 MG Capsule Delayed Release TAKE 1 CAPSULE BY MOUTH DAILY 1/2 HOUR BEFORE BREAKFAST Medication List reviewed and reconciled with the patient * Allergies:?Neosporin: Allerg yGrass Pollen Standardized ExtMoldDust MitesLatex: Allergyno[Allergies Verified] Objective: * Vitals:?Ht: 73, Wt:214, BMI: 28.23, BP:141/77, HR:90, Temp:97.9, Wt-k.07. * Examination: ???General Examination: ?GENERAL APPEARANCE:?pleasant, well nourished, well developed, in no acute distress, calm and relaxed , overweight , man.?HEAD:?atraumatic, normocephalic.?EYES:?eomi, perrla, anicteric, conjugate.?EARS:?normal.?NOSE:?septum intact.?ORAL CAVITY:?normal, unremarkable.?NECK/THYROID:?no jugular venous distention, no carotid bruit, thyroid normal.?LYMPH NODES:?no enlarged lymph nodes,spleen normal.?SKIN:?no suspicious lesions, anicteric.?HEART:?no clicks, gallops, murmurs, or rubs, regular rhythm, S1, S2 normal, no s3, or vascular bruits.?LUNGS:?clear to auscultation .?BREASTS:??no masses palpable bilaterally.?ABDOMEN:?bowel sounds normal, no ascites, no organomegaly, no mass , overweight.?RECTAL EXAM:?not examined.?MUSCULOSKELETAL:?extremities unremarkable, no clubbing, cyanosis or edema.?PERIPHERAL PULSES:?normal.?NEUROLOGIC:?alert and oriented, cranial nerves 2-12 grossly intact, deep tendon reflexes 2+ symmetrical, motor strength normal upper and lower extremities, sensory exam intact.?PSYCH:?alert, oriented , anxious appearing.? Assessment: * Assessment: 1.?Adenomatous polyp of sigm oid colon - D12.5 (Primary), The polyp was removed. He will undergo colonoscopy every 5 years.?2.?Genital warts - A63.0, He has not had a recurrence since his initial treatment.?3.?Benign prostatic hyperplasia without lower urinary tract symptoms - N40.0, His nocturia has diminished since he began to employ lifestyle modification.?4.?Mixed hyperlipidemia - E78.2, His lipids are currently stable with a total cholesterol 219. His triglycerides are 144. I recommend aggressive weight loss and a diet restrricted in calories and sodium combined with regular physical activity.?5.?GERD without esophagitis - K21.9, He is going to take omeprazole 20 mg daily and uses a liquid antacid such as Maalox or Mylanta for breakthrough heartburn.?6.?Essential hypertension - I10, His blood pressure is currently stable at 141/77. No change in his regimen was necessary. I recommended weight reduction and sodium restriction. Although the systolic is slightly elevated he did not wish more medication. We reviewed the use of sodium restriction weight reduction is no activity in lowering blood pressure.?7.?Elevated PSA - R97.20, His PSA is currently in the normal range and will be followed carefully.?8.?Overweight - E66.3, He remains somewhat overweight. We discussed his diet and his nutrition. We made a plan to lose weight at a rate of one half of a pound per week through a diet restricted in calories. I recommended regular physical activity as well.?9.?Former smoker - Z87.891, He has a plan in place to prevent relapse in times of stress and illness.? Plan: * Treatment: * Procedure Codes:? * Preventive Medicine:? ??Counseling:?Care goal follow-up plan:?Counseling for abnormal BMI given?Yes ?Above Normal BMI Follow-up?Dietary management education, guidance, and counseling, Dietary needs education ?Smoking/Tobacco Use?Patient counseled on the dangers of tobacco use and urged to quit.?04/07/2024 * Follow Up:?As Scheduled ([place] son: OV) * Images: * Sign off status: Completed true * Provider:?Ramon Duenas MD Date:?03/24 Generated for Printnahid hawkins/Bennett/eTransmitting on:?09/12/2024 07:01 AM EST History and Physical Notes * HPI (History of Present Illness) Category Sub-Category Detail Notes COVID-19 Screening Questions Have you had any new onset fever, chills, cough, congestion, sore throat, shortness of breath, muscle aches?: No Have you been exposed to the virus withi n the last 10 days?: No Have you travelled internationally in last 10 days?: No Have you been exposed to COVID-19 in the past?: Yes Examination Category Sub-Category Detail Notes General Examination GENERAL APPEARANCE: pleasant , well nourished, well developed, in no acute distress, calm and relaxed , overweight , man HEAD: atraumatic, normocep halic EYES: eomi, perrla, anicte kathleen, conjugate EARS: normal NOSE: septum intact NECK/THYROID: no jugular venous di stention, no carotid bruit, thyroid normal HEART: no clicks, gallops, murmurs, or rubs, regular rhythm, S1, S2 normal, no s3, or vascular bruits LUNGS: clear to auscultatio n ABDOMEN: bowel sounds normal, no ascites, no organomegaly, no mass , overweight NEUROLOGIC: alert and oriented, cranial nerves 2-12 grossly intact, deep tendon reflexes 2+ symmetrical, motor strength normal upper and lower extremities, sensory exam intact SKIN: no suspicious lesion s, anicteric PERIPHERAL PULSES: normal BREASTS: no masses palpable b ilaterally MUSCULOSKELETAL: extremities unremark able, no clubbing, cyanosis or edema LYMPH NODES: no enlarged lymph no makenzie,spleen normal RECTAL EXAM: not examined PSYCH: alert, oriented , an xious appearing ORAL CAVITY: normal, unremarkable
--- OUTSIDE RECORDS SUMMARY | 2024-09-12 07:02 | XMS_ITS | Encounter Summary ---
Author Name [facility] [place] [facility] [place] Organization [facility] [place] Address [address] [place] [address] Care Team Providers Care Frankfurter Inspector Name Role Phone WESTON ESPITIA Primary Care Provider Unavailabl e Insurance Providers: All historical and current Section Date Range: From patient's date of to the date document was created. This section includes the names of all active insurance providers for the patient. Insurance Provider Type of Coverage Plan Name Start of Policy Coverage End of Policy Coverage Group Number Member ID Insurance Provider's Telephone Number Policy Cornejo's Name Patient's Relationship to Policy Cornejo [employer] POINT OF SERVICE TEAMS [facility] [id number] Sep 24, 2012 [id number] [phone] [facility] RT PATIENT [place] ([place] PREFERRED PROVIDER ORGANIZAT ION (PPO) TEAMS [facility] [id number] Sep 24, 2022 [id number] [phone] [place], RT PATIENT [place] ([place]) PREFERRED PROVIDER ORGANIZAT ION (PPO) TEAMS [facility] [id number] Mar 24, 2014 [id number] [place], RT PATIENT [facility] PRESCRIPT ION [place] TEAMS [facility] Sep 24, 2019 [id number] [phone] GEOFF DE LA FUENTE RT PATIENT [employer] ([id number]) PRESCRIPT ION TEAMS [facility] Mar 24, 2014 [id number] GEOFF DE LA FUENTE RT PATIENT MEDICARE (WNR) MEDICARE (M) PART B Feb 22, 2023 PART B [id number] [facility] GEOFF DE LA FUENTE RT PATIENT Selected Encounter This section includes the information on record at [place] for the Encounter. Date/Time Encounter Type Encounter Description Reason Pro vider Source Apr 24, 2024 03:58 PM Outpatient Encounter ADMIN PAT ACTIVTIES (MASNONCT) I[facility] Encounter Template Text not used by [place] Plan of Treatment: Future Appointments (+ 6 months) and Future Tests (+/- 45 days) The Plan of Treatment section includes future care activities for the patient from all [place] treatmentfacilities. This section includes future appointments and future orders which are active, pending or scheduled. Future Appointments This section includes appointments that were scheduled to occur 6 months from the date of the Encounter, up to a maximum of 20 appointments. The data comes from all [place] treatment facilities. Appointment Date/Time Appointment Type Appointme nt Facility Name Jun 30, 2024 11:00 AM AMBULATORY - MEDICINE [facility] [place] Jul 29, 2024 10:15 AM [facility] Social History: Smoking Status (Most current) and Tobacco Use (All prior to encounter date) This section includes the most current, and the historical, smoking and tobacco- related health factors from the [place] facility where the Encounter took place. Current Smoking Status This section includes the most current smoking, or tobacco-related health factor, from the [place] facility where the Encounter took place. Date/Time Current Smoking Status Comment Facil ity Jun 26, 2023 03:20 PM VA-TOBACCO [facility] [place] [facility] Tobacco Use History This section includes a history of the smoking, or tobacco-related health factors, that were collected on or before the date of the Encounter. The data comes from the [place] facility where the Encounter took place. Date/Time Smoking Status/Tobacco Use Comment F acility Jun 26, 2023 03:20 PM VA-TOBACCO QUIT 15 YRS OR MORE [facility] [place] [facility] May 08, 2022 09:20 AM VA-TOBACCO FOR[facility]ER [facility] [place] [facility] May 08, 2022 09:20 AM VA-TOBACCO QUIT 15 [facility]RS OR [facility] Encounter Notes: All associated encounter notes This section contains the clinical notes associated to the Encounter. Date/Time Encounter Note(s) Provider Source Apr 24, 2024 03:58 PM PHARMACY NOTE: LOCAL TITLE: PHARMACY CUSTOMER CARE MEDICATION RENEWAL STANDARD TITLE: PHARMACY NOTE DATE OF NOTE: APR 24, 2024@15:58 ENTRY DATE: APR 24, 2024@15:58:47 AUTHOR: YARELI SIEGEL EXP COSIGNER: URGENCY: STATUS: COMPLETED Date: Apr Division: [facility] referred by Pharmacy Call Center for medication renewal: Non-controlled/maintenance medication Medications requested: [id number] SIMVASTATIN 80MG TAB Defer to primary care provider To be mailed . Please review and renew if appropriate. *This note was generated by [facility] Customer Care. If you have any questions or need assistance, do not contact this author. Please refer all questions to your local, on-site pharmacy departments. /farrah/ YARELI SIEGEL CPhT Draw Frame Operator, [place]/Pharmacy Customer Care Signed: 04/24/2024 16:14 Receipt Acknowledged By: 05/08/2024 17:14 /farrah/ ARACELI OCHOA MD PRIMARY CARE PHYSICIAN 04/25/2024 07:34 /farrah/ SAMMY LOPEZ BSN RN-BC REGISTERED NURSE YARELI SIEGEL [facility]
--- OUTSIDE RECORDS SUMMARY | 2024-09-12 07:02 | XMS_ITS | Encounter Summary ---
Author Name [facility] Organization [facility] [place] Address [address] [place] [id number] Care Team Providers Care Heel Wheeler Name Role Phone WESTON ESPITIA Primary Care [...] Policy [place] AETNA POINT OF SERVICE TEAMS [facility] [id number] Sep 24, 2012 [id number] [phone] [place], [place] PATIENT BCBS [place] ([place]UE CARD) PREFERRED PROVIDER ORGANIZAT ION (PPO) TEAMS [facility] 404 Sep 24, 2022 [id number] [place], [place] PATIENT BCBS [place] (BLUE CARD) PREFERRED PROVIDER ORGANIZAT ION (PPO) TEAMS [facility] [id number] Mar 24, 2014 [id number] [phone] [place], RT PATIENT [facility] PRESCRIPT ION [facility] TEAMS [facility] Sep 24, 2019 [id number] GEOFF DE LA FUENTE RT PATIENT [facility] ([id number]) PRESCRIPT ION TEAMS [facility] Mar 24, 2014 [id number] GEOFF DE [place] PATIENT MEDICARE (WNR) MEDICARE (M) PART B Feb 22, 2023 PART B [id number] [facility] [phone] GEOFF DE LA [place]UENTE PATIENT Selected Encounter This section includes the information on record at [place] for the Encounter. Date/Time Encounter Type Encounter Description Reason Provider Source Jun 30, 2024 11:00 AM OFFICE O/P EST MOD 30 MIN PRIMARY CARE/MEDICINE ICD-10-CM I10 Essential (primary) hypertension STELEA,ARACELI F E Encounter Template Text not used by [place] Assessments - Encounter Diagnoses This section includes the primary and secondary diagnoses documented for the Encounter. Date/Time Primary/Secondary Diagnosis Diagnosis Name Provider Source Jul 12, 2024 06:29 AM PRIMARY Essential (primary) hypertension STELEA,ARACELI F [place] Jul 12, 2024 06:29 AM SECONDARY Allergic rhinitis, unspecified STELEA,ARACELI F [place] Jul 12, 2024 06:29 AM SECONDARY Benign prostatic hyperplasia with lower urinary tract symp STELEA,ARACELI [place] Jul 12, 2024 06:29 AM SECONDARY Hyperlipidemia, unspecified STELEA,ARACELI F [place] Plan of Treatment: Future Appointments (+ 6 months) and Future Tests (+/- 45 days) The Plan of Treatment section includes future care activities for the patient from all [place] treatmentfacilities. This section includes future appointments and future orders which are active, pending or scheduled. Future Appointments This section includes appointments that were scheduled to occur 6 months from the date of the Encounter, up to a maximum of 20 appointments. The data comes from all [place] treatment facilities. Appointment Date/Time Appointment Type Appointme nt Facility Name Jul 29, 2024 10:15 AM AMBULATORY - NONE [facility] [place] Lab Results: +/- 30 days of the encounter This section includes the Chemistry and Hematology Lab Results on record with [place] for the patient. Radiology Reports and Pathology Reports are provided separately, in subsequent sections. Lab Results This section contains the Chemistry/Hematology Results that were resulted 30 days before or 30 daysafter the date of the Encounter. Date/Time Source Result Type Result - Unit Interpretation Reference Range Comment Jun 23, 2024 07:32 AM [place] HEMOGLOBIN A1C PANEL Specimen Type: BLOOD Comment: Values obtained from A1C measurements can vary. For atypical A1C assays, a reported value of 7.0 could actually be between 6.72 and 7.28 if measured by a reference method. A reported value of 9.0 could actually be between 8.73 and 9.27. Ref: http://www.ngs p.org/CAPdata. asp Ordering Provider: STERLING EL Report Released Date/Time: Jun 26, 2023 03:38 PM Reporting Lab: [facility] [address] [address] Performing Lab: [address] [address] HEMOGLOBIN A1C 5.5 4.0-5.6 Jun 23, 2024 07:32 AM [place] PSA Specimen Type: SERUM No comment entered. Ordering Provider: STERLING EL Report Released Date/Time: Jun 26, 2023 03:38 PM Reporting Lab: [facility] [address] [address] Performing Lab: [facility] [address] [address] PSA 3.03 ng/mL 0.00-4.00 Jun 23, 2024 07:32 AM [place] LIPID PANEL FASTING Specimen Type: SERUM No comment entered. Ordering Provider: STERLING EL Report Released Date/Time: Jun 26, 2023 03:38 PM Reporting Lab: [facility] [address] [address] Performing Lab: [facility] [address] [address] CHOLESTEROL 240 mg/dL H TRIGLYCERIDE 167 mg/dL H 0-150 LDL calculated 158 mg/dL H 0-129 CHOL/HDL 4.9 HDL CHOLESTEROL 49 mg/dL 40-60 Jun 23, 2024 07:32 AM [place] LIVER FUNCTION Specimen Type: SERUM No comment entered. Ordering Provider: STERLING EL Report Released Date/Time: Jun 26, 2023 03:38 PM Reporting Lab: [facility] [address] [address] Performing Lab: [address] [address] PROTEIN,TOTAL 7.4 g/dL 6.0-8.3 ALBUMIN 4.4 g/dL 3.5-5.0 ALKALINE PHOSPHATASE 81 U/L 40-150 AST 22 U/L 5-34 ALT 34 U/L BILIRUBIN, TOTAL 0.6 mg/dL 0.2-1.2 Jun 23, 2024 07:32 AM [place] BASIC METABOLIC PANEL (fasting) Specime n Type: SERUM No comment entered. Ordering Provider: STERLING EL Report Released Date/Time: Jun 26, 2023 03:38 PM Reporting Lab: [address] [address] Performing Lab: [address] [address] UREA NITROGEN 20 mg/dL 7-25 GLUCOSE 104 mg/dL H 65-100 SODIUM 142 mmol/L 135-145 POTASSIUM 4.1 mmol/L 3.5-5.0 CHLORIDE 103 mmol/L 100-110 CO2 27 meq/L 20-30 CREATININE, Serum 1.07 mg/dL 0.50-1.40 eGFR(CKD-EPI 2020) 77 mL/min >60 Jun 23, 2024 07:32 AM [place] TSH Specimen Type: SERUM No comment entered. Ordering Provider: STERLING EL Report Released Date/Time: Jun 26, 2023 03:38 PM Reporting Lab: [address] [address] Performing Lab: [address] [address] TSH 1.86 u[IU]/mL 0.35-5.00 Jun 23, 2024 07:32 AM [place] URINALYSIS Specimen Type: URINE Comment: If Glucose = >500 and Ketones are positive, please alert the Physician. Ordering Provider: STERLING EL Report Released Date/Time: Jun 26, 2023 03:38 PM Reporting Lab: [address] [address] Performing Lab: [facility] [address] UA COLOR Light-Yellow Yellow UA APPEARANCE Clear Clear UA GLUCOSE Normal mg/dL Negative UA KETONES NEGATIVE mg/dL Negative UA BLOOD NEGATIVE mg/dL Negative UA PROTEIN NEGATIVE mg/dL Negative UA NITRITE NEGATIVE mg/dL Negative UA BILIRUBIN NEGATIVE mg/dL Negative UA SPECIFIC GRAVITY 1.020 1.016-1.022 UA pH 7.0 5.0-9.0 UA UROBILINOGEN Normal mg/dL <2.0 UA LEUKOCYTE NEGATIVE Negative Jun 23, 2024 07:32 AM [place] CBC AND DIFF (AUTO) Specimen Type: BLOOD No comment entered. Ordering Provider: STERLING EL Report Released Date/Time: Jun 26, 2023 03:38 PM Reporting Lab: [address] [address] Performing Lab: [address] [address] WBC 9.91 10*3/uL 4.50-11.00 RBC 5.29 10*6/uL 4.23-5.66 HGB 16.0 g/dL 12.8-17 HCT 47.7 39.2-50.4 MCV 90.2 fL 82-99 MCHC 33.5 g/dL 30.8-35.1 PLT 349 10*3/uL 140-360 RDW-CV 12.7 12.0-16.0 MONO, ABS 0.89 10*3/uL 0.30-1.10 MCH 30.2 pg 26.2-32.6 NEUT % 66.6 43.7-75.8 LYMPH % 17.6 14.0-42.3 MONO % 9.0 5.1-13.7 EOS % 4.7 0.4-6.8 BASO % 0.6 0.1-2.0 NEUT, ABS 6.60 10*3/uL 2.20-7.60 LYMPH, ABS 1.74 10*3/uL 1.00-3.20 EOS, ABS 0.47 10*3/uL H 0.03-0.44 BASO, ABS 0.06 10*3/uL 0.01-0.13 IMMATURE GRAN % 1.5 H 0.0-0.7 IMMATURE GRAN, ABS 0.15 10*3/uL H 0.00-0.06 NRBC % 0.0 0.0-0.0 NRBC, ABS 0.00 10*3/uL 0.00-0.00 Vital Signs: All taken on the encounter date This section contains inpatient and outpatient Vital Signs collected on the date of the Encounter. Date/Time Temperature Pulse Blood Pressure Respiratory Rate SP02 Pain Height Weight Body Mass Index Source Jun 30, 2024 10:58 AM 90 147/91 96 220 30 [facility] [place] Social History: Smoking Status (Most current) and Tobacco Use (All prior to encounter date) This section includes the most current, and the historical, smoking and tobacco- related health factors from the [place] facility where the Encounter took place. Current Smoking Status This section includes the most current smoking, or tobacco-related health factor, from the [place] facility where the Encounter took place. Date/Time Current Smoking Status Comment Facil ity Jun 30, 2024 11:00 AM VA-TOBACCO FORMER USER [place] Tobacco Use History This section includes a history of the smoking, or tobacco-related health factors, that were collected on or before the date of the Encounter. The data comes from the [place] facility where the Encounter took place. Date/Time Smoking Status/Tobacco Use Comment F acility Jun 30, 2024 11:00 AM VA-TOBACCO QUIT 15 YRS OR MORE [place] Aug 30, 2020 11:30 AM VA-TOBACCO FORMER USER [place] Aug 30, 2020 11:30 AM VA-TOBACCO QUIT 15 YRS OR MORE [place] Jul 24, 2018 03:30 PM VA-TOBACCO FORMER USER [place] Jul 24, 2018 03:30 PM VA-TOBACCO QUIT 15 YRS OR MORE [place] Aug 20, 2017 11:26 AM QUIT TOBACCO USE > 7 YEARS AGO quit 1996 [place] Jul 31, 2016 10:33 AM QUIT TOBACCO USE > 7 YEARS AGO quit 1995 [place] Sep 22, 2005 09:27 AM LIFETIME NON-SMOKER [place] Nov 25, 2003 09:52 AM HISTORY OF SMOKING quit smoking 10 yrs hx of 1ppd x 20 yr [place] Jan 05, 2003 03:18 PM QUIT TOBACCO USE > 7 YEARS AGO stopped tobacco 8 years ago [place] Jul 11, 2002 11:20 AM HISTORY OF SMOKING quit 8-9 years ago [place] Sep 06, 2001 10:25 AM NON-TOBACCO USER SP [facility] May 09, 2001 07:57 AM HISTORY OF SMOKING Stopped cigaretts 8 years ago [place] Encounter Notes: All associated encounter notes This section contains the clinical notes associated to the Encounter. Date/Time Encounter Note(s) Provider Source Jun 30, 2024 11:02 AM PHYSICIAN NOTE: LOCAL TITLE: MD NOTE STANDARD TITLE: PHYSICIAN NOTE DATE OF NOTE: JUN 30, 2024@11:02 ENTRY DATE: JUN 30, 2024@11:02:06 AUTHOR: ARACELI OCHOA COSIGNER: URGENCY: STATUS: COMPLETED NOTE Has ADDENDA HISTORY OF PRESENT ILLNESS: first time seen , transferred from Dr El ANDERSON DE LA FUENTE, is a 64 yo MALE [place], who presents at the [facility] to meet the new PCP. f/u non va pcp, GI,urology, dermatology Active problems - Computerized Problem List is the source for the following: -Essential hypertension -Hyperlipidemia -Borderline hyperglycemia -ED -BPH -Allergic rhinithis -comanaged The following VA and Non-VA meds were reconciled with patient: Active Outpatient Medications (including Supplies): Issue Date Status Last Fill Active Outpatient Medications Refills Expiration 1) SILDENAFIL CITRATE 100MG TAB Qty: 6 for ACTIVE Issu:07-19-23 30 days Sig: TAKE ONE TABLET BY MOUTH Refills: 8 Last:04-16-24 ONCE DAILY NEEDED TAKE 1 HOUR Expr:07-19-24 PRIOR TO SEXUAL ACTIVITY 2) SIMVASTATIN 80MG TAB Qty: 45 for 90 ACTIVE Issu:05-08-24 days Sig: TAKE ONE-HALF TABLET BY Refills: 1 Last:05-09-24 MOUTH AT BEDTIME FOR CHOLESTEROL Expr:05-09-25 Start Date Active Non-VA Medications Refills Expiration 1) Non-VA ASPIRIN 81MG EC TAB SiMG BY ACTIVE MOUTH 2) Non-VA FINASTERIDE 5MG TAB SiMG BY ACTIVE MOUTH ONCE DAILY 3) Non-VA FISH OIL 500MG DHA/EPA CAP,ORAL ACTIVE Sig: BY MOUTH DAILY 4) Non-VA HYDROCHLOROTHIAZIDE 25MG TAB ACTIVE Si.5MG BY MOUTH DAILY 5) Non-VA IRBESARTAN 300MG TAB SiMG ACTIVE BY MOUTH DAILY 6) Non-VA MULTIVITAMIN CAP/TAB Si ACTIVE TABLET BY MOUTH DAILY 8 Total Medications ALLERGIES: ========= LISINOPRIL, AMLODIPINE LAB HISTORY: CBC, LFTs, hemoglobin A1c, PSA, TSH, UA, GFRnormal limits Glucose level 104 Total cholesterol 240 with triglycerides 167 and LDL 158 HISTORY: PERIOD OF SERVICE - [facility]-[place] [facility] FROM Aug TO January COMBAT SERVICE INDICATED: No REVIEW OF SYSTEMS: No fever, chills positive for nasal congestion on and off, positive for postnasal drip, and dry cough on and off No chest pain, shortness of breath at rest or with ambulation No wheezing No abdominal pain nausea or vomiting b/l shoulders chronic pain on & off No headaches or dizziness PHYSICAL EXAMINATION: WD/overweight, [place] seems to be in NAD S1-S2 positive, RRR NIRANJAN, CTA bilateral Abdomen soft nontender to palpation No edema lower extremities AAO x3; ambulates without help Mild edema and erythema of nasal mucosa bilateral nostrils ASSESSMENT/PLAN: -Essential hypertension-managed by his known VA PCP -blood pressure mildly elevated today in office but asymptomatic The states he is compliant with his medication but he does not watches his diet too much and he does not exercises I advised him to start monitoring blood pressure 2 or 3 times a week and keep a log book She states would like to have blood pressure monitored by his non-VA PCP I advised him to call his PCP with blood pressure readings if systolic blood pressure is persistently 140 or higher The verbalizes understanding -Hyperlipidemia-on simvastatin 40 mg p.o. nightly Lipid panel elevated He admits of not exercising at all and he just retired from [employer] also he admits of eating a lot of pizza and steaks and ice cream I advised him to keep healthy diet and start exercising at least 150 minutes moderate activity weekly -Borderline hyperglycemia -advised to decrease carbohydrates in diet and start exercising -ED-Viagra as needed -BPH-continue current medications -Allergic rhinithis-advised to use saline spray every 2-3 hours as needed for his nasal congestion and he verbalized understanding -comanaged FOLLOW UP: ========= RTC - 6 months annual with fasting labs Today's documentation was made using voice recognition software. This note may contain spelling/grammatical errors secondary to this software. Every effort is made to correct errors, but if mistakes are found they need to be taken in context. UPCOMING APPOINTMENTS: No data available No barriers; Patient understands and agrees to current treatment plan. If pt has any questions, concerns, or changes in current health status he/she will call or come in to the VA. Medication Reconciliation: Outpatient: Has the patient been taking medications as documented in the EMLR? YES: The patient has been taking medications as documented in the EMLR. Essential Medication List for Review used to complete this medication reconciliation. INCLUDED IN THIS LIST: Alphabetical list of active outpatient prescriptions dispensed from this VA (local) and dispensed from another VA or DoD facility (remote) as well as inpatient orders (local, pending and active), local clinic medications, locally documented non-VA medications, and local prescriptions that have or been discontinued in the past 90 days. - All changes in medications, including all non-VA/Herbal/OTC medications were entered into CPRS. - If there were any medications the patient should no longer take, they were discontinued. - The patient/caregiver was instructed to update this list, discard old lists, and take this list to the next appointment, whether with a VA or non-VA provider. JLV Link Data on this list may not be complete. Please check JLV. Allergies/ADRs (Tool #5) FACILITY ALLERGY/ADR -------- No Remote Allergy/ADR Data available for this patient [facility] AMLODIPINE [facility] [place] [facility] LISINOPRIL [facility] ([facility] INCLUDED IN THIS LIST: Alphabetical list of active outpatient prescriptions dispensed from this [place] (local) and dispensed from another [place] or DoD facility (remote) as well as inpatient orders (local pending and active), local clinic medications, locally documented non-VA medications, and local prescriptions that have or been discontinued in the past 90 days. Non-VA Meds Last Documented On: Aug 28, 2019 NOTE The display of VA prescriptions dispensed from another VA or DoD facility (remote) is limited to active outpatient prescription entries matched to National Drug File at the originating site and may not include some items such as investigational drugs, compounds, etc. NOT INCLUDED IN THIS LIST: Medications self-entered by the patient into personal health records (i.e. PPLCONNECT) are NOT included in this list. Non-VA medications documented outside this [place], remote inpatient orders (regardless of status) and remote clinic medications are NOT included in this list. The patient and provider must always discuss medications the patient is taking, regardless of where the medication was dispensed or obtained. Non-VA ASPIRIN 81MG EC TAB TAKE ONE TABLET BY MOUTH OUTPT DICLOFENAC NA 1% TOP GEL (Status = ) APPLY 2 GRAMS TOPICALLY FOUR TIMES A DAY FOR OSTEOARTHRITIS - USE DOSING CARD PROVIDED IN BOX Rx# [id number] Last Released: 06/28/23 Qty/Days Supply: Rx Expiration Date: 06/26/24 Refills Remainin Indication: FOR JOINT PAIN Non-VA FINASTERIDE 5MG TAB TAKE ONE TABLET BY MOUTH ONCE DAILY Non-VA FISH OIL 500MG DHA/EPA CAP,ORAL TAKE BY MOUTH DAILY Non-VA HYDROCHLOROTHIAZIDE 25MG TAB TAKE ONE-HALF TABLET BY MOUTH DAILY Non-VA IRBESARTAN 300MG TAB TAKE ONE TABLET BY MOUTH DAILY Non-VA MULTIVITAMIN CAP/TAB TAKE ONE TABLET BY MOUTH DAILY OUTPT SILDENAFIL CITRATE 100MG TAB (Status = Active) TAKE ONE TABLET BY MOUTH ONCE DAILY NEEDED TAKE 1 HOUR PRIOR TO SEXUAL ACTIVITY Rx# [id number] Last Released: 04/16/24 Qty/Days Supply: 03/23 Rx Expiration Date: 07/19/24 Refills Remainin OUTPT SIMVASTATIN 80MG TAB (Status = Discontinued) TAKE ONE-HALF TABLET BY MOUTH AT BEDTIME FOR CHOLESTEROL Rx# [id number] Last Released: 02/14/24 Qty/Days Supply: Rx Expiration Date: 05/21/24 Refills Remainin Indication: FOR HIGH CHOLESTEROL OUTPT SIMVASTATIN 80MG TAB (Status = Active) TAKE ONE-HALF TABLET BY MOUTH AT BEDTIME FOR CHOLESTEROL Rx# [id number] Last Released: 05/15/24 Qty/Days Supply: 45 Rx Expiration Date: 05/09/25 Refills Remainin Indication: FOR HIGH CHOLESTEROL SUPPLIES HTN Assess for Elevated BP>=140/90: Other Reason: The states his blood pressure is managed by his non va PCP and he would like to follow-up with him /chastity OCHOA MD PRIMARY CARE PHYSICIAN Signed: 06/30/2024 11:28 07/01/2024 ADDENDUM STATUS: COMPLETED echo ordered- last done in 07/2022- aortic root -4.1 cm diameter /chastity OCHOA MD PRIMARY CARE PHYSICIAN Signed: 07/01/2024 12:46 07/01/2024 ADDENDUM STATUS: COMPLETED lvm to patient's phone- [phone], about ordering echo /farrah/ ARACELI OCHOA MD PRIMARY CARE PHYSICIAN Signed: 07/01/2024 12:48 ARACELI OCHOA [place] Jun 30, 2024 11:00 AM PREVENTIVE MEDICIN E NURSING NOTE: LOCAL TITLE: CLINICAL REMINDERS/NURSING STANDARD TITLE: PREVENTIVE MEDICINE NURSING NOTE DATE OF NOTE: JUN 30, 2024@11:00 ENTRY DATE: JUN 30, 2024@11:00:10 AUTHOR: SEE BORJA COSIGNER: URGENCY: STATUS: COMPLETED Advance Directive Screen MH AD: Patient does not have a completed advance directive on file at any facility, VA or outside. S/he is not interested in completing one at this time. The patient received education about Advance Directives and written notification of his/her rights. Suicide Screen: C-SSRS Screening [place] Suicide Severity Rating Scale (C-SSRS) screener 1. Over the past month, have you wished you were or wished you could go to sleep and not wake up? No 2. Over the past month, have you had any actual thoughts of killing yourself? No 3. Over the past month, have you been thinking about how you might do this? Response not required due to responses to other questions. 4. Over the past month, have you had these thoughts and had some intention of acting on them? Response not required due to responses to other questions. 5. Over the past month, have you started to work out or worked out the details of how to kill yourself? Response not required due to responses to other questions. 6. If yes, at any time in the past month did you intend to carry out this plan? Response not required due to responses to other questions. 7. In your lifetime, have you ever done anything, started to do anything, or prepared to do anything to end your life (for example, collected pills, obtained a gun, gave away valuables, went to the roof but didn't jump)? No 8. If YES, was this within the past 3 months? Response not required due to responses to other questions. BMI>30/>24.99 High Risk: Patient declines to discuss weight management. Patient declined weight discussion. Discussed revisiting at a future visit. Homelessness/Food Insecurity Screen: In the past 2 months, have you been living in stable housing that you own, rent, or stay in as part of a household? Yes - Living in stable housing. Are you worried or concerned that in the next 2 months you may NOT have stable housing that you own, rent, or stay in as part of a household? No - Not worried about housing near future The reports the following: Within the past 12 months, you worried whether your food would run out before you got money to buy more. Never true Within the past 12 months, the food you bought just didn't last and you didn't have money to get more. Never true Follow Up Colonoscopy: Colonoscopy is due based on information available to this reminder. A colonoscopy has been completed elsewhere and we are waiting for results. VET STATED HAD DONE 2023 6 Mounth ago outside [place] , will fax the results. Depression Screening: Perform PHQ-2 A PHQ-2 screen was performed. The score was 0 which is a negative screen for depression. Over the past two weeks, how often have you been bothered by the following problems? 1. Little interest or pleasure in doing things Not at all 2. Feeling down, depressed, or hopeless Not at all Pneumococcal Conjugate Vaccine (PCV15/PCV20): Refuses PCV vaccine Immunization: PNEUMOCOCCAL CONJUGATE, UNSPECIFIED FORMULATION Refusal Reason: PATIENT DECISION Patient refuses all immunization(s) in the PneumoPCV group Date Documented: 06/30/24 11:01 Tobacco Use Screening: The patient is a former tobacco user. The patient quit fifteen or more years ago. Influenza Immunization: The patient has received the seasonal influenza vaccine for the current season at another location. Documented: INFLUENZA, UNSPECIFIED FORMULATION Historical Date Administered: Jun 24, 2024 Outside Location: Outside Healthcare Provider Information Source: SOURCE UNSPECIFIED Td / Tdap Immunization: The patient declines to receive the recommended dose of Td/Tdap vaccine. Immunization: TD(ADULT) UNSPECIFIED FORMULATION Refusal Reason: PATIENT DECISION Patient refuses all immunization(s) in the Td group Date Documented: 06/30/24 11:02 Alcohol Use Screen (AUDIT-C): Alcohol Screen: SCREEN FOR ALCOHOL (AUDIT-C) An alcohol screening test (AUDIT-C) was negative (score=1). 1. How often did you have a drink containing alcohol in the past year? Consider a drink to be a 12 ounce can or bottle of regular beer, 8 ounces of malt liquor, a 5 ounce glass of table wine, or a 1.5 ounce shot of liquor (like scotch, gin, or vodka). Monthly or less 2. How many drinks containing alcohol did you have on a typical day when you were drinking in the past year? Zero drinks 3. How often did you have six or more drinks on one occasion in the past year? Never COVID-19 Immunization: Refused Moderna Monovalent COVID-19 vaccine Immunization: COVID-19 (MODERNA), MRNA, LNP-S, PF, 50 MCG/0.5 ML (AGES 12+ YEARS) Refusal Reason: PATIENT DECISION Patient refuses all immunization(s) in the COVID-19 group Date Documented: 06/30/24 11:02 Sexual Orientation: The patient thinks of their sexual orientation as: Straight or Heterosexual RHS Screen: RHS Screen Environmental Check Upon inquiry, the individual reports that the environment is safe to proceed. Informed Consent to Screen and Document The individual consents to proceed with screening. The individual consents to documentation of responses. PRIMARY SCREEN: In the past 12 months, how often did a current or former intimate partner (e.g., boyfriend, girlfriend, , , sexual partner): 1. Scream or curse at you Never 2. Insult or talk down to you Never 3. Threaten you with harm Never 4. Physically hurt you Never 5. Force or pressure you to have sexual contact against your will, or when you were unable to say no Never ?? The HITS tool (items 1-4 above) is [place] copyright protected by Derian Perez MD, and the user has full rights to use it throughout the VA system. PRIMARY SCREEN RESULT: The Primary Screen is NEGATIVE. The individual answered never to all forms of IPV above (i.e., answered never to all 5 items) The individual accepts education and/or resources: No EDUCATION: The individual indicated readiness to learn. Education offered during this session as noted above. The individual indicated understanding by asking relevant questions and making appropriate comments. No barriers to learning were observed or identified. /farrah/ SEE BORJA LPN Licensed Practical Nurse Signed: 06/30/2024 11:02 SEE BORJA [place] Jun 19, 2024 02:42 PM ADMINISTRATIVE NOT E: LOCAL TITLE: ADMINISTRATIVE NOTE STANDARD TITLE: ADMINISTRATIVE NOTE DATE OF NOTE: JUN 19, 2024@14:42 ENTRY DATE: JUN 19, 2024@14:42:21 AUTHOR: ZAY DOMINGUEZ COSIGNER: URGENCY: STATUS: COMPLETED [facility] [address] [place] [id number] [phone] * ANDERSON DE LA FUENTE [address] [place], [place] [address] Date: JUN 19, 2024 re: This is a reminder of your upcoming PCP appt with ARACELI OCHOA Appointment Date: Jun@11:00 Appointment Type: In-person visit (X)Fasting blood work NON fasting blood work LEFT MESSAGE ON VOICEMAIL TO CONFIRM APPT AND LABWORK Sincerely, Office Staff for: ARACELI OCHOA Primary Care Provider [facility] [address] [place] [address] [phone] Upcoming Appointments: 06/30/2024 11:00 CWM/SO/PACT EIGHT WH APPOINTMENT [facility] (SPOPC OR SO = [place], [facility]) (GOPC OR GO = [place], [facility]) ([facility] W[facility] or NO = [facility]) (VVC - Video Call) (Tel-X Telephone Visit) (TH - Telehealth) /farrah/ ZAY CHAMORRO Signed: 06/19/2024 14:43 ZAY DOMINGUEZ
--- OUTSIDE RECORDS SUMMARY | 2024-09-12 07:02 | XMS_ITS ---
Author Name [facility] [place] [facility] [place] Organization [facility] [place] Address [address] [place] [address] Care Team Providers Care Information Systems Security Specialist Name Role Phone WESTON ESPITIA Primary Care [...] Policy [place] AETNA POINT OF SERVICE TEAMS [facility] 671 Sep 24, 2012 [id number] DE [place] RT PATIENT [place] ([place] C[place]) PREFERRED PROVIDER ORGANIZAT ION (PPO) TEAMS [facility] 404 Sep 24, 2022 [id number] [phone] [place], RT PATIENT [place] ([place]) PREFERRED PROVIDER ORGANIZAT ION (PPO) TEAMS [facility] 671 H Mar 24, 2014 [id number] [place] RT PATIENT [facility] PRESCRIPT ION TRI[facility]S [place] TEAMS [facility] Sep 24, 2019 ALRX [id number] GEOFF DE LA [place] RT PATIENT [facility] ([id number]) PRESCRIPT ION TEAMS [facility]ERS RX Mar 24, 2014 TEAMSRX [id number] GEOFF DE [place] RT PATIENT MEDICARE (WNR) MEDICARE (M) PART B Feb 22, 2023 PART B [id number] GEOFF DE [place] RT PATIENT Selected Encounter This section includes the information on record at [place] for the Encounter. Date/Time Encounter Type Encounter Description Reason Pro vider Source Jun 24, 2024 10:38 AM Outpatient Encounter TELEPHONE PRIMARY CARE IHE Encounter Template Text not used by [place] Plan of Treatment: Future Appointments (+ 6 months) and Future Tests (+/- 45 days) The Plan of Treatment section includes future care activities for the patient from all [place] treatmentfacilities. This section includes future appointments and future orders which are active, pending or scheduled. Future Appointments This section includes appointments that were scheduled to occur 6 months from the date of the Encounter, up to a maximum of 20 appointments. The data comes from all [place] treatment facilities. Appointment Date/Time Appointment Type Appointme nt Facility Name Jun 30, 2024 11:00 AM AMBULATORY - MEDICINE [facility] Jul 29, 2024 10:15 AM AMBULATORY - NONE [facility] Lab Results: +/- 30 days of the encounter This section includes the Chemistry and Hematology Lab Results on record with [place] for the patient. Radiology Reports and Pathology Reports are provided separately, in subsequent sections. Lab Results This section contains the Chemistry/Hematology Results that were resulted 30 days before or 30 daysafter the date of the Encounter. Date/Time Source Result Type Result - Unit Interpretation Reference Range Comment Jun 23, 2024 07:32 AM [facility] PSA Specimen Type: SERUM No comment entered. Ordering Provider: STERLING EL Report Released Date/Time: Jun 26, 2023 03:38 PM Reporting Lab: [facility] [address] [facility] [address] Performing Lab: [facility] [address] [facility] [address] PSA 3.03 ng/mL 0.00-4.00 Jun 23, 2024 07:32 AM [facility] HEMOGLOBIN A1C PANEL Specimen Type: BLOOD Comment: [...] Jun 26, 2023 03:38 PM Reporting Lab: [address] [address] Performing Lab: [address] [address] HEMOGLOBIN A1C 5.5 4.0-5.6 Jun 23, 2024 07:32 AM [facility] LIPID PANEL FASTING Specimen Type: SERUM No comment entered. Ordering Provider: STERLING EL Report Released Date/Time: Jun 26, 2023 03:38 PM Reporting Lab: [address] [address] Performing Lab: [address] [address] CHOLESTEROL 240 mg/dL H TRIGLYCERIDE 167 mg/dL H 0-150 LDL calculated 158 mg/dL H 0-129 CHOL/HDL 4.9 HDL CHOLESTEROL 49 mg/dL 40-60 Jun 23, 2024 07:32 AM [facility] BASIC METABOLIC PANEL (fasting) Specime n Type: SERUM No comment entered. Ordering Provider: STERLING EL Report Released Date/Time: Jun 26, 2023 03:38 PM Reporting Lab: [address] [address] Performing Lab: [address] [address] UREA NITROGEN 20 mg/dL 7-25 GLUCOSE 104 mg/dL H 65-100 SODIUM 142 mmol/L 135-145 POTASSIUM 4.1 mmol/L 3.5-5.0 CHLORIDE 103 mmol/L 100-110 CO2 27 meq/L 20-30 CREATININE, Serum 1.07 mg/dL 0.50-1.40 eGFR(CKD-EPI 2020) 77 mL/min >60 Jun 23, 2024 07:32 AM [facility] TSH Specimen Type: SERUM No comment entered. Ordering Provider: STERLING EL Report Released Date/Time: Jun 26, 2023 03:38 PM Reporting Lab: [address] [address] Performing Lab: [address] [address] TSH 1.86 u[IU]/mL 0.35-5.00 Jun 23, 2024 07:32 AM [facility] LIVER FUNCTION Specimen Type: SERUM No comment entered. Ordering Provider: STERLING EL Report Released Date/Time: Jun 26, 2023 03:38 PM Reporting Lab: [address] [address] Performing Lab: [address] [address] PROTEIN,TOTAL 7.4 g/dL 6.0-8.3 ALBUMIN 4.4 g/dL 3.5-5.0 ALKALINE PHOSPHATASE 81 U/L 40-150 AST 22 U/L 5-34 ALT 34 U/L BILIRUBIN, TOTAL 0.6 mg/dL 0.2-1.2 Jun 23, 2024 07:32 AM [facility] URINALYSIS Specimen Type: URINE Comment: If Glucose = >500 and Ketones are positive, please alert the Physician. Ordering Provider: STERLING EL Report Released Date/Time: Jun 26, 2023 03:38 PM Reporting Lab: [address] [address] Performing Lab: [address] [address] UA COLOR Light-Yellow Yellow UA APPEARANCE Clear Clear UA GLUCOSE Normal mg/dL Negative UA KETONES NEGATIVE mg/dL Negative UA BLOOD NEGATIVE mg/dL Negative UA PROTEIN NEGATIVE mg/dL Negative UA NITRITE NEGATIVE mg/dL Negative UA BILIRUBIN NEGATIVE mg/dL Negative UA SPECIFIC GRAVITY 1.020 1.016-1.022 UA pH 7.0 5.0-9.0 UA UROBILINOGEN Normal mg/dL <2.0 UA LEUKOCYTE NEGATIVE Negative Jun 23, 2024 07:32 AM [facility] CBC AND DIFF (AUTO) Specimen Type: BLOOD No comment entered. Ordering Provider: STERLING EL Report Released Date/Time: Jun 26, 2023 03:38 PM Reporting Lab: [facility] [address] [facility] [address] Performing Lab: [facility] [address] [facility] [address] WBC 9.91 10*3/uL 4.50-11.00 RBC 5.29 10*6/uL [...] 0.0 0.0-0.0 NRBC, ABS 0.00 10*3/uL 0.00-0.00 Social History: Smoking Status (Most current) and Tobacco Use (All prior to encounter date) This section includes the most current, and the historical, smoking and tobacco- related health factors from the [place] facility where the Encounter took place. Current Smoking Status This section includes the most current smoking, or tobacco-related health factor, from the [place] facility where the Encounter took place. Date/Time Current Smoking Status Comment Facil alba Jun 26, 2023 03:20 PM VA-TOBACCO [facility] Tobacco Use History This section includes a history of the smoking, or tobacco-related health factors, that were collected on or before the date of the Encounter. The data comes from the [place] facility where the Encounter took place. Date/Time Smoking Status/Tobacco Use Comment F aceron Jun 26, 2023 03:20 PM VA-TOBACCO QUIT 15 YRS OR MORE [facility] May 08, 2022 09:20 AM VA-TOBACCO [facility] May 08, 2022 09:20 AM VA-TOBACCO QUIT 15 YRS OR MORE [facility] Encounter Notes: All associated encounter notes This section contains the clinical notes associated to the Encounter. Date/Time Encounter Note(s) Provider Source Jun 24, 2024 10:38 AM LETTERS: LOCAL TITLE: PATIENT LETTER (T) STANDARD TITLE: LETTERS DATE OF NOTE: JUN 24, 2024@10:38 ENTRY DATE: JUN 24, 2024@10:38:51 AUTHOR: SANDIE VALENCIA COSIGNER: URGENCY: STATUS: COMPLETED DEPARTMENT OF [facility] Toll Free Number Primary Care Telephone Assistance can be reached at extension [phone] [facility] scheduling can be reached at extension [phone] [facility] scheduling can be reached at ext [phone] ANDERSON Perez [place] [address] [place], [place], [address] Dear , Your cholesterol is elevated. Please avoid fried fatty food, sugary drinks, soda, juice, alcohol, baked goods, ice cream. Maintain a diet high in fresh fruit and veggies, lean meats, low saturated fat. Try to exercise daily. Be sure you are taking your Simvastatin daily, as prescribed. If you would like to see a Glue Jointer Feeder, please let us know. Your recent test results are as follows: LAB CHEMISTRY & HEMATOLOGY Collection DT Specimen Test Name Result Units Ref Range 06/23/2024 07:32 URINE !! UA COLOR Light-Yellow Ref: Yellow !! UA APPEARANCE Clear Ref: Clear !! UA pH 7.0 5.0 - 9.0 !! UA GLUCOSE Normal mg/dL Ref: Negative !! UA KETONES NEGATIVE mg/dL Ref: Negative !! UA BLOOD NEGATIVE mg/dL Ref: Negative !! UA PROTEIN NEGATIVE mg/dL Ref: Negative !! UA LEUKOCYTE NEGATIVE Ref: Negative !! UA NITRITE NEGATIVE mg/dL Ref: Negative !! UA BILIRUBIN NEGATIVE mg/dL Ref: Negative !! UA UROBILINOGEN Normal mg/dL Ref: <2.0 !! SpeGra 1.020 1.016 - 1.022 06/23/2024 07:32 BLOOD !! HEMOGLOBIN A1C 5.5 % 4.0 - 5.6 06/23/2024 07:32 BLOOD WBC 9.91 K/cmm 4.50 - 11.00 RBC 5.29 M/cmm 4.23 - 5.66 HGB 16.0 g/dL 12.8 - 17 HCT 47.7 % 39.2 - 50.4 MCV 90.2 fl 82 - 99 MCH 30.2 pg 26.2 - 32.6 MCHC 33.5 g/dL 30.8 - 35.1 RDW-CV 12.7 % 12.0 - 16.0 PLT 349 K/cmm 140 - 360 NEUT % 66.6 % 43.7 - 75.8 LYMPH % 17.6 % 14.0 - 42.3 MONO % 9.0 % 5.1 - 13.7 EOS % 4.7 % 0.4 - 6.8 BASO % 0.6 % 0.1 - 2.0 IMMATURE GRAN % 1.5 H % 0.0 - 0.7 NRBC % 0.0 % 0.0 - 0.0 NEUT, ABS 6.60 K/cmm 2.20 - 7.60 LYMPH, ABS 1.74 K/cmm 1.00 - 3.20 MONO, ABS 0.89 K/cmm 0.30 - 1.10 EOS, ABS 0.47 H K/cmm 0.03 - 0.44 BASO, ABS 0.06 K/cmm 0.01 - 0.13 IMMATURE GRAN, AB 0.15 H K/cmm 0.00 - 0.06 NRBC, ABS 0.00 K/cmm 0.00 - 0.00 06/23/2024 07:32 SERUM PSA 3.03 ng/mL 0.00 - 4.00 TSH 1.86 uIU/mL 0.35 - 5.00 06/23/2024 07:32 SERUM CREATININE, Serum 1.07 mg/dL 0.50 - 1.40 eGFR(CKD-EPI 2020 77 mL/min Ref: >=60 SODIUM 142 mmol/L 135 - 145 POTASSIUM 4.1 mmol/L 3.5 - 5.0 CHLORIDE 103 mmol/L 100 - 110 CO2 27 mEq/L 20 - 30 UREA NITROGEN 20 mg/dL 7 - 25 GLUCOSE 104 H mg/dL 65 - 100 PROTEIN,TOTAL 7.4 g/dL 6.0 - 8.3 ALBUMIN 4.4 g/dL 3.5 - 5.0 ALK DANIEL 81 U/L 40 - 150 AST 22 U/L 5 - 34 BILIRUBIN, TOTAL 0.6 mg/dL 0.2 - 1.2 CHOLESTEROL 240 H mg/dL <7 - 199 TRIGLYCERIDE 167 H mg/dL 0 - 150 LDL calculated 158 H mg/dL 0 - 129 CHOL/HDL 4.9 ALT 34 U/L <6 - 55 HDL CHOLESTEROL 49 mg/dL 40 - 60 !! Indicates COMMENTS AVAILABLE...Refer to Interim Lab Report. Lipid Profile Collection DT Specimen Test Name Result Units Ref Range 06/23/2024 07:32 SERUM CHOLESTEROL 240 H mg/dL <7 - 199 06/23/2024 07:32 SERUM TRIGLYCERIDE 167 H mg/dL 0 - 150 06/23/2024 07:32 SERUM HDL CHOLESTEROL 49 mg/dL 40 - 60 06/23/2024 07:32 SERUM LDL calculated 158 H mg/dL 0 - 129 06/23/2024 07:32 SERUM CHOL/HDL 4.9 06/23/2024 07:32 BLOOD !! HEMOGLOBIN A1C 5.5 % 4.0 - 5.6 !! Indicates COMMENTS AVAILABLE...Refer to Interim Lab Report. Thyroid Test Collection DT Spec TSH 06/23/2024 07:32 SERUM 1.86 Please call if you have any questions or concerns. Upcoming Appointments: 06/30/2024 11:00 CWM/SO/PACT EIGHT WH Sincerely, Your Primary Care Team [facility] [address] [address] [place] [address] [phone] [facility] [address] [place] [address] [place] [address] [phone] [facility] [address] [facility],[address] [place] [phone] [place] [address] SANDIE VALENCIA CNTRL WSTRN [facility]
--- OUTSIDE RECORDS SUMMARY | 2024-09-12 07:02 | XMS_ITS | Encounter Summary ---
Author Name [facility] of [facility] [place]) Organization [facility] [place] Address [address] [place] [address] Care Team Providers Care Acquisition Specialist Name Role Phone WESTON ESPITIA Primary [...] Policy [place] AETNA POINT OF SERVICE TEAMS [facility] 671 Sep 24, 2012 [id number] [phone] [place], RT PATIENT [place] ([place]) PREFERRED PROVIDER ORGANIZAT ION (PPO) TEAMS [facility] 404 Sep 24, 2022 [id number] [phone] [place], RT PATIENT [place] PREFERRED PROVIDER ORGANIZAT ION (PPO) TEAMS [facility] 671 H Mar 24, 2014 [id number] [phone] [place], RT PATIENT [facility] PRESCRIPT ION TRI[facility] TEAMS [facility] Sep 24, 2019 ALRX [id number] GEOFF DE LA [place] RT PATIENT [facility] ([id number]) PRESCRIPT ION TEAMS TERS RX Mar 24, 2014 TEAMSRX [id number] GEOFF DE [place] RT PATIENT MEDICARE (WNR) MEDICARE (M) PART B Feb 22, 2023 PART B [id number] GEOFF [place] PATIENT Selected Encounter This section includes the information on record at MD for the Encounter. 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 Date/Time Primary/Secondary Diagnosis Diagnosis Name Provider Source Jul 29, 2024 05:02 PM PRIMARY Aneurysm of aorta in diseases classified elsewhere JANET CAMACHO [facility] Plan of Treatment: Future Appointments (+ 6 months) and Future Tests (+/- 45 days) The Plan of Treatment section includes future care activities for the patient from all [place] treatmentfacilities. This section includes future appointments and future orders which are active, pending or scheduled. Future Appointments This section includes appointments that were scheduled to occur 6 months from the date of the Encounter, up to a maximum of 20 appointments. The data comes from all [place] treatment facilities. Appointment Date/Time Appointment Type Appointme nt Facility Name Jan 02, 2025 10:00 AM AMBULATORY - MEDICINE [facility] Encounter Notes: All associated encounter notes This section contains the clinical notes associated to the Encounter. Date/Time Encounter Note(s) Provider Source Jul 29, 2024 05:01 PM CARDIOLOGY CONSULT : LOCAL TITLE: ECHO CONSULT STANDARD TITLE: CARDIOLOGY CONSULT DATE OF NOTE: JUL 29, 2024@17:01 ENTRY DATE: JUL 29, 2024@17:01:33 AUTHOR: RAVINDER CAMACHO EXP COSIGNER: URGENCY: STATUS: COMPLETED Remote echocardiogram read was completed in MD CT. Results are available in [employer]. /farrah/ RAVINDER CAMACHO MD Cardiology Attending Signed: 07/29/2024 17:02 RAVINDER CAMACHO [facility]
--- OUTSIDE RECORDS SUMMARY | 2024-09-12 07:02 | XMS_ITS | Encounter Summary ---
Author Name [place] Address [address] [place] [address] Care Team Providers Care Information Coordinator Name Role Phone WESTON ESPITIA Primary Care [...] Policy [place]nejo AETNA POINT OF SERVICE TEAMS [facility] 671 Sep 24, 2012 [id number] [facility] RT PATIENT BCBS [place] ([place] CARD) PREFERRED PROVIDER ORGANIZAT ION (PPO) TEAMS [facility] 404 Sep 24, 2022 [id number] [place], RT PATIENT BCBS [place] ([place]) PREFERRED PROVIDER ORGANIZAT ION (PPO) TEAMS [facility] 671 H Mar 24, 2014 [id number] [phone] [place], RT PATIENT [facility] PRESCRIPT ION [facility] TEAMS [facility] Sep 24, 2019 ALRX [id number] [phone] GEOFF DE LA FUENTE RT PATIENT [facility] ([id number]) PRESCRIPT ION TEAMS [facility] Mar 24, 2014 TEAMSRX [id number] GEOFF DE LA FUENTE RT PATIENT MEDICARE (WNR) MEDICARE (M) PART B Feb 22, 2023 PART B [id number] [facility] GEOFF DE LA FUNETE RT PATIENT Selected Encounter This section includes the information on record at [place] for the Encounter. Date/Time Encounter Type Encounter Description Reason Pro vider Source Jun 02, 2024 11:02 AM Outpatient Encounter ADMIN PAT ACTIVTIES (MASNONCT) IHE Encounter Template Text not used by [place] Plan of Treatment: Future Appointments (+ 6 months) and Future Tests (+/- 45 days) The Plan of Treatment section includes future care activities for the patient from all [place] treatmentfacilities. This section includes future appointments and future orders which are active, pending or scheduled. Future Appointments This section includes appointments that were scheduled to occur 6 months from the date of the Encounter, up to a maximum of 20 appointments. The data comes from all [place] treatment facilities. Appointment Date/Time Appointment Type Appointme nt Facility Name Jun 30, 2024 11:00 AM AMBULATORY - MEDICINE [facility] Jul 29, 2024 10:15 AM [facility] Lab Results: +/- 30 days of the encounter This section includes the Chemistry and Hematology Lab Results on record with [place] for the patient. Radiology Reports and Pathology Reports are provided separately, in subsequent sections. Lab Results This section contains the Chemistry/Hematology Results that were resulted 30 days before or 30 daysafter the date of the Encounter. Date/Time Source Result Type Result - Unit Interpretation Reference Range Comment Jun 23, 2024 07:32 AM [place] PSA Specimen Type: SERUM No comment entered. Ordering Provider: STERLING EL Report Released Date/Time: Jun 26, 2023 03:38 PM Reporting Lab: [facility] [address] [facility] [address] Performing Lab: [facility] [address] [facility] [address] PSA 3.03 ng/mL 0.00-4.00 Jun 23, 2024 07:32 AM [place] HEMOGLOBIN A1C PANEL Specimen Type: BLOOD Comment: [...] Jun 26, 2023 03:38 PM Reporting Lab: [address] [address] Performing Lab: [address] [address] HEMOGLOBIN A1C 5.5 4.0-5.6 Jun 23, 2024 07:32 AM [place] LIPID PANEL FASTING Specimen Type: SERUM No comment entered. Ordering Provider: STERLING EL Report Released Date/Time: Jun 26, 2023 03:38 PM Reporting Lab: [address] [address] Performing Lab: [address] [address] CHOLESTEROL 240 mg/dL H TRIGLYCERIDE 167 mg/dL H 0-150 LDL calculated 158 mg/dL H 0-129 CHOL/HDL 4.9 HDL CHOLESTEROL 49 mg/dL 40-60 Jun 23, 2024 07:32 AM [place] LIVER FUNCTION Specimen Type: SERUM No comment entered. Ordering Provider: STERLING EL Report Released Date/Time: Jun 26, 2023 03:38 PM Reporting Lab: [address] [address] Performing Lab: [address] [address] PROTEIN,TOTAL 7.4 g/dL 6.0-8.3 ALBUMIN 4.4 g/dL 3.5-5.0 ALKALINE PHOSPHATASE 81 U/L 40-150 AST 22 U/L 5-34 ALT 34 U/L BILIRUBIN, TOTAL 0.6 mg/dL 0.2-1.2 Jun 23, 2024 07:32 AM [place] BASIC METABOLIC PANEL (fasting) Specime n Type: SERUM No comment entered. Ordering Provider: STERLING EL Report Released Date/Time: Jun 26, 2023 03:38 PM Reporting Lab: [address] [address] Performing Lab: [address] [address] UREA NITROGEN 20 mg/dL 7-25 GLUCOSE 104 mg/dL H 65-100 SODIUM 142 mmol/L 135-145 POTASSIUM 4.1 mmol/L 3.5-5.0 CHLORIDE 103 mmol/L 100-110 CO2 27 meq/L 20-30 CREATININE, Serum 1.07 mg/dL 0.50-1.40 eGFR(CKD-EPI 2020) 77 mL/min >60 Jun 23, 2024 07:32 AM [place] TSH Specimen Type: SERUM No comment entered. Ordering Provider: STERLING EL Report Released Date/Time: Jun 26, 2023 03:38 PM Reporting Lab: [address] [address] Performing Lab: [address] [address] TSH 1.86 u[IU]/mL 0.35-5.00 Jun 23, 2024 07:32 AM [place] URINALYSIS Specimen Type: URINE Comment: If Glucose = >500 and Ketones are positive, please alert the Physician. Ordering Provider: STERLING EL Report Released Date/Time: Jun 26, 2023 03:38 PM Reporting Lab: [address] [address] Performing Lab: [address] [address] UA COLOR Light-Yellow Yellow UA APPEARANCE Clear Clear UA GLUCOSE Normal mg/dL Negative UA KETONES NEGATIVE mg/dL Negative UA BLOOD NEGATIVE mg/dL Negative UA PROTEIN NEGATIVE mg/dL Negative UA NITRITE NEGATIVE mg/dL Negative UA BILIRUBIN NEGATIVE mg/dL Negative UA SPECIFIC GRAVITY 1.020 1.016-1.022 UA pH 7.0 5.0-9.0 UA UROBILINOGEN Normal mg/dL <2.0 UA LEUKOCYTE NEGATIVE Negative Jun 23, 2024 07:32 AM [place] CBC AND DIFF (AUTO) Specimen Type: BLOOD No comment entered. Ordering Provider: STERLING EL Report Released Date/Time: Jun 26, 2023 03:38 PM Reporting Lab: [facility] [address] [facility] [address] Performing Lab: [facility] [address] [facility] [address] WBC 9.91 10*3/uL 4.50-11.00 RBC 5.29 10*6/uL [...] and tobacco- related health factors from the [place] facility where the Encounter took place. Current Smoking Status This section includes the most current smoking, or tobacco-related health factor, from the [place] facility where the Encounter took place. Date/Time Current Smoking Status Comment Facil ity Jun 26, 2023 03:20 PM VA-TOBACCO FORMER USER [facility] Tobacco Use History This section includes a history of the smoking, or tobacco-related health factors, that were collected on or before the date of the Encounter. The data comes from the [place] facility where the Encounter took place. Date/Time Smoking Status/Tobacco Use Comment F acility Jun 26, 2023 03:20 PM VA-TOBACCO QUIT 15 YRS OR MORE [place] [facility] May 08, 2022 09:20 AM VA-TOBACCO FORMER USER [place] [facility] May 08, 2022 09:20 AM [place]-TO[place]ACCO QUIT 15 YRS OR MORE [facility] Encounter Notes: All associated encounter notes This section contains the clinical notes associated to the Encounter. Date/Time Encounter Note(s) Provider Source Jun 19, 2024 05:58 PM ADDENDUM: LOCAL TITLE: Addendum STANDARD TITLE: ADDENDUM DATE OF NOTE: JUN 19, 2024@17:58:17 ENTRY DATE: JUN 19, 2024@17:58:18 AUTHOR: ARACELI OCHOA EXP COSIGNER: URGENCY: STATUS: COMPLETED i have never see this . i am not going to order any labs for a new patient. please inform the . Thank you /farrah/ ARACELI OCHOA MD PRIMARY CARE PHYSICIAN Signed: 06/19/2024 17:59 Receipt Acknowledged By: 06/25/2024 14:05 /farrah/ JANI LANDRY RN-BC REGISTERED NURSE --- Original Document --- 06/02/24 CCC: SCHEDULING ADMINISTRATION: Patient Demographics Patient Name: ANDERSON DE LA FUENTE Patient Primary Phone: [phone] Patient Primary [address]: [address] [place] [id number] Patient : 1960 Patient Age: 64 Caller/Recipient Relation to Patient: Self Administrative Administrative Note Reason: Other Administrative Note Comments: called and stated that he is supposed to get labs done a week before seeing his provider on 06/30/24. He would like to ask that an HIV test be ordered so that he can get that done while he is there for the other lab tests. The stated that he was not having any symptoms, but he wanted to be checked. Please submit the lab order. IMPORTANT: This note was created by [facility] Contact [facility] staff. Please do not alert the staff member by adding them as a signer for future communications. Alerts are not monitored by this user. /farrah/ CHEIKH FIELD 1 [facility] Signed: 06/02/2024 11:03 Receipt Acknowledged By: 06/02/2024 13:38 /es/ SARAH LANDRYN RN-BC REGISTERED NURSE 06/02/2024 12:00 /es/ SEE BORJA LPN Licensed Practical Nurse 06/02/2024 ADDENDUM STATUS: COMPLETED Forwarding to Provider /farrah/ SEE BORJA LPN Licensed Practical Nurse Signed: 06/02/2024 12:01 Receipt Acknowledged By: 06/19/2024 17:58 /farrah/ ARACELI OCHOA MD PRIMARY CARE PHYSICIAN ARACELI OCHOA [place] [facility] [place] [facility] Jun 02, 2024 11:02 AM ADMINISTRATIVE NOT E: LOCAL TITLE: CCC: SCHEDULING ADMINISTRATION STANDARD TITLE: ADMINISTRATIVE NOTE DATE OF NOTE: JUN 02, 2024@11:02:52 ENTRY DATE: JUN 02, 2024@11:02:52 AUTHOR: CHEIKH GUPTA COSIGNER: URGENCY: STATUS: COMPLETED CCC: SCHEDULING ADMINISTRATION Has ADDENDA Patient Demographics Patient Name: ANDERSON DE LA FUENTE Patient Primary Phone: [phone] Patient Primary Address: [address] [place] [id number] Patient : 1960 Patient Age: 64 Caller/Recipient Relation to Patient: Self Administrative Administrative Note Reason: Other Administrative Note Comments: Ashley called and stated that he is supposed to get labs done a week before seeing his provider on 10/07/24. He would like to ask that an HIV test be ordered so that he can get that done while he is there for the other lab tests. The stated that he was not having any symptoms, but he wanted to be checked. Please submit the lab order. IMPORTANT: This note was created by [facility] Clinical Contact Center staff. Please do not alert the staff member by adding them as a signer for future communications. Alerts are not monitored by this user. /farrah/ CHEIKH FIELD 1 [facility] Signed: 06/02/2024 11:03 Receipt Acknowledged By: 06/02/2024 13:38 /farrah/ JANI LANDRY RN-RIVAS REGISTERED NURSE 06/02/2024 12:00 /farrah/ SEE BORJA LPN Licensed Practical Nurse 06/02/2024 ADDENDUM STATUS: COMPLETED Forwarding to Provider /farrah/ SEE BORJA LPN Licensed Practical Nurse Signed: 06/02/2024 12:01 Receipt Acknowledged By: 06/19/2024 17:58 /farrah/ ARACELI OCHOA MD PRIMARY CARE PHYSICIAN 06/19/2024 ADDENDUM STATUS: COMPLETED i have never see this . i am not going to order any labs for a new patient. please inform the . Thank you /chastity OCHOA MD PRIMARY CARE PHYSICIAN Signed: 06/19/2024 17:59 Receipt Acknowledged By: 06/25/2024 14:05 /JANI Adam RN-RIVAS REGISTERED NURSE 06/25/2024 ADDENDUM STATUS: COMPLETED already presented to [place] lab to complete previously ordered labwork ordered by last [place] PCP. Can discuss additional lab orders at time of PCP appt on 06/30/2024 /JANI Adam RN-BC REGISTERED NURSE Signed: 06/25/2024 14:07 CHEIKH GUPTA [place] [facility]
--- OUTSIDE RECORDS SUMMARY | 2024-09-12 07:02 | XMS_ITS | Encounter Summary ---
Author Name [facility] [place] Address [address] [place] [address] Care Team Providers Care Recreation Adviser Name Role Phone WESTON ESPITIA Primary Care Provider Unavailernesto e Insurance Providers: All historical and current [...] Policy Cornejo AETNA POINT OF SERVICE TEAMS [facility] 671 Sep 24, 2012 [id number] [place], RT PATIENT BCBS [place] ([place]) PREFERRED PROVIDER ORGANIZAT ION (PPO) TEAMS [facility] 404 Sep 24, 2022 [id number] [place], RT PATIENT BCBS [place] ([place]) PREFERRED PROVIDER ORGANIZAT ION (PPO) TEAMS [facility] 671 H Mar 24, 2014 [id number] [place], RT PATIENT [facility] PRESCRIPT ION [facility] [place] TEAMS [facility] Sep 24, 2019 ALRX [id number] GEOFF DE LA FUENT[place] RT PATIENT [facility] ([id number]) PRESCRIPT ION TEAMS [facility] Mar 24, 2014 TEAMSRX [id number] GEOFF DE LA FUENTE RT PATIENT MEDICARE (WNR) MEDICARE (M) PART B Feb 22, 2023 PART B [id number] GEOFF DE LA FUENTE RT PATIENT Selected Encounter This section includes the information on record at [place] for the Encounter. Date/Time Encounter Type Encounter Description Reason Pro vider Source Jun 24, 2024 12:00 AM Outpatient Encounter EVENT (HISTORICAL) IHE Encounter Template Text not used by [place] Plan of Treatment: Future Appointments (+ 6 months) and Future Tests (+/- 45 days) The Plan of Treatment section includes future care activities for the patient from all [place] treatmentfacilities. This section includes future appointments and future orders which are active, pending or scheduled. Future Appointments This section includes appointments that were scheduled to occur 6 months from the date of the Encounter, up to a maximum of 20 appointments. The data comes from all [place] treatment facilities. Appointment Date/Time Appointment Type Appointme nt Facility Name Jun 30, 2024 11:00 AM [facility] Jul 29, 2024 10:15 AM AMBULATORY - NONE [facility] Lab Results: +/- 30 days of the encounter This section includes the Chemistry and Hematology Lab Results on record with [place] for the patient. Radiology Reports and Pathology Reports are provided separately, in subsequent sections. Lab Results This section contains the Chemistry/Hematology Results that were resulted 30 days before or 30 daysafter the date of the Encounter. Date/Time Source Result Type Result - Unit Interpretation Reference Range Comment Jun 23, 2024 07:32 AM [place] PSA Specimen Type: SERUM No comment entered. Ordering Provider: STERLING EL Report Released Date/Time: Jun 26, 2023 03:38 PM Reporting Lab: [facility] [address] [facility] [facility] [address] Performing Lab: [facility] [address] [facility] [facility] [address] PSA 3.03 ng/mL 0.00-4.00 Jun 23, 2024 07:32 AM [facility] HEMOGLOBIN A1C PANEL Specimen Type: BLOOD Comment: [...] Jun 26, 2023 03:38 PM Reporting Lab: [address] [address] Performing Lab: [address] [address] HEMOGLOBIN A1C 5.5 4.0-5.6 Jun 23, 2024 07:32 AM [place] LIPID PANEL FASTING Specimen Type: SERUM No comment entered. Ordering Provider: STERLING EL Report Released Date/Time: Jun 26, 2023 03:38 PM Reporting Lab: [address] [address] Performing Lab: [address] [address] CHOLESTEROL 240 mg/dL H TRIGLYCERIDE 167 mg/dL H 0-150 LDL calculated 158 mg/dL H 0-129 CHOL/HDL 4.9 HDL CHOLESTEROL 49 mg/dL 40-60 Jun 23, 2024 07:32 AM [place] LIVER FUNCTION Specimen Type: SERUM No comment entered. Ordering Provider: STERLING EL Report Released Date/Time: Jun 26, 2023 03:38 PM Reporting Lab: [address] [address] Performing Lab: [address] [address] PROTEIN,TOTAL 7.4 g/dL 6.0-8.3 ALBUMIN 4.4 g/dL 3.5-5.0 ALKALINE PHOSPHATASE 81 U/L 40-150 AST 22 U/L 5-34 ALT 34 U/L BILIRUBIN, TOTAL 0.6 mg/dL 0.2-1.2 Jun 23, 2024 07:32 AM [place] BASIC METABOLIC PANEL (fasting) Specime n Type: SERUM No comment entered. Ordering Provider: STERLING EL Report Released Date/Time: Jun 26, 2023 03:38 PM Reporting Lab: [address] [address] Performing Lab: [address] [address] UREA NITROGEN 20 mg/dL 7-25 GLUCOSE 104 mg/dL H 65-100 SODIUM 142 mmol/L 135-145 POTASSIUM 4.1 mmol/L 3.5-5.0 CHLORIDE 103 mmol/L 100-110 CO2 27 meq/L 20-30 CREATININE, Serum 1.07 mg/dL 0.50-1.40 eGFR(CKD-EPI 2020) 77 mL/min >60 Jun 23, 2024 07:32 AM [place] TSH Specimen Type: SERUM No comment entered. Ordering Provider: STERLING EL Report Released Date/Time: Jun 26, 2023 03:38 PM Reporting Lab: [address] [address] Performing Lab: [address] [address] TSH 1.86 u[IU]/mL 0.35-5.00 Jun 23, 2024 07:32 AM [place] URINALYSIS Specimen Type: URINE Comment: If Glucose = >500 and Ketones are positive, please alert the Physician. Ordering Provider: STERLING EL Report Released Date/Time: Jun 26, 2023 03:38 PM Reporting Lab: [address] [address] Performing Lab: [address] [address] UA COLOR Light-Yellow Yellow UA APPEARANCE Clear Clear UA GLUCOSE Normal mg/dL Negative UA KETONES NEGATIVE mg/dL Negative UA BLOOD NEGATIVE mg/dL Negative UA PROTEIN NEGATIVE mg/dL Negative UA NITRITE NEGATIVE mg/dL Negative UA BILIRUBIN NEGATIVE mg/dL Negative UA SPECIFIC GRAVITY 1.020 1.016-1.022 UA pH 7.0 5.0-9.0 UA UROBILINOGEN Normal mg/dL <2.0 UA LEUKOCYTE NEGATIVE Negative Jun 23, 2024 07:32 AM [facility] CBC AND DIFF (AUTO) Specimen Type: BLOOD No comment entered. Ordering Provider: STERLING EL Report Released Date/Time: Jun 26, 2023 03:38 PM Reporting Lab: [facility] [address] [facility] [facility] [address] Performing Lab: [facility] [address] [facility] [facility] [address] WBC 9.91 10*3/uL 4.50-11.00 RBC 5.29 10*6/uL [...] 0.0 0.0-0.0 NRBC, ABS 0.00 10*3/uL 0.00-0.00 Immunizations: All administered on the encounter date This section contains immunizations associated to the Encounter. Immunization Series Date Issued Reaction Comments INFLUENZA, UNSPECIFIED FORMULATION Jun 24, 2024 Social History: Smoking Status (Most current) and Tobacco Use (All prior to encounter date) This section includes the most current, and the historical, smoking and tobacco- related health factors from the [place] facility where the Encounter took place. Current Smoking Status This section includes the most current smoking, or tobacco-related health factor, from the [place] facility where the Encounter took place. Date/Time Current Smoking Status Comment Facil ity Jun 26, 2023 03:20 PM VA-TOBACCO FORMER USER [facility] Tobacco Use History This section includes a history of the smoking, or tobacco-related health factors, that were collected on or before the date of the Encounter. The data comes from the [place] facility where the Encounter took place. Date/Time Smoking Status/Tobacco Use Comment F acility Jun 26, 2023 03:20 PM [place]-TOBACCO QUIT 15 YRS OR MORE [facility] May 08, 2022 09:20 AM [place]-TOBACCO FORMER USER [place] [facility] [place] [facility] May 08, 2022 09:20 AM [place]-TOBACCO QUIT [facility] YRS OR MORE [facility]
--- OUTSIDE RECORDS SUMMARY | 2024-09-12 07:02 | XMS_ITS | Continuity of Care Document ---
Author Name [facility] Organization [facility] Care Team Providers Care Senior Informatica Developer Name Role Phone [facility] Unavailable Unavailable Problems Combined list of problems from Department of Defense and Veterans Affairs facilities. It does not include entries that were removed or entered in error. Problem Status Onset Date Problem Type Date of Resolution Comments Source Allergic rhinitis * (ICD-9-CM 477.9) Active Condition [place] Cholesteatoma * (ICD-9-CM 385.30) Active Condition [facility] Colonoscopy abnormal Active Condition Aug 27, 2018 Entered By: STERLING EL Comment: gi: dr vogel colonoscopy no polyps 2007 and in 2012. 2017 colonoscopy +ticsDec 2017 Entered By: STERLING EL Comment: 2023 Entered By: CHARLES ESPITIA Comment: EGD/COLONOSCO PY DONE 12/07/2023 [facility] GI REPEAT IN 5 YEARS [place] Dyspepsia * (ICD-9-CM 536.8) Active Condition [facility] Elevated Liver Function Tests (ICD-9-CM 794.8) Active Condition [facility] Elevated PSA [facility] Genital warts Active Condition [place] Hyperlipidemia Active Condition [facility] HYPERLIPIDEMIA NEC/NOS Active Condition [place] Hypertension Active Condition [facility] Hypertension * (ICD-9-CM 401.9) Active Condition [place] Hypertrophy (Benign) of Prostate without Urinary obstruction Active Condition [place] Neck pain Active Condition [place] Peripheral sensory neuropathy * (ICD-9-CM 356.2) Active Condition Aug 13 9 Entered By: STERLING EL Comment: mri 07/02 mild L5-S1 disc bulge unchanged from mri '96 [facility] Raised prostate specific antigen Active Condition Jul 13 4 Entered By: STERLING EL Comment: negative prostate biopsy [place] Simple upper Gastrointestinal Endoscopy Active Condition Jul 08, 2012 Entered By: STERLING EL Comment: [address] vogel. egd7/[address] vogel [place] Thoracic aortic aneurysm without rupture Active Condition Jul 18, 2018 Entered By: STERLING EL Comment: ascending aorta 3.9 05/11 o/w NL. [facility] [place] Umbilical hernia Active Condition [place] IMPACTED CERUMEN Inactive Condition 06/03/2004 [facility] [facility] UPPER RESP. INFEC, ACUTE (COLD) Inactive Condition 06/03/2004 [facility] [facility] Diagnosis: ICD-10-CM I79.0 Aneurysm of aorta in diseases classified elsewhere Active Diagnosis [facility] Diagnosis: ICD-10-CM I71.20 Thoracic aortic aneurysm, without rupture, unspecified Active Diagnosis [place] Diagnosis: ICD-10-CM I10 Essential (primary) hypertension Active Diagnosis [place] Medications Combined list of outpatient medications from Department of Defense and Veterans Affairs facilities.Medications provided include 1) outpatient medications from the last 15 months, and 2) patient-reported medications. Medication Details Route Status Patient Instructions Prescription Expires Prescription Number Last Dispense Date Ordering Provider Order Date Order Qty Source ASPIRIN 81MG TAB,EC TAKE ONE TABLET BY MOUTH qd ORAL ACTIVE NARESH EL 2005 [facility] DICLOFENAC NA 1% GEL,TOP APPLY 2 GRAMS TOPICALL Y FOUR TIMES A DAY FOR OSTEOART HRITIS - USE DOSING CARD PROVIDED IN BOX STEPHANIA FORD INUED BY PROVIDE R 06/26/2024 [id number] NARESH EL 2022 100 [facility] FINASTERIDE 5MG TAB TAKE ONE TABLET BY MOUTH ONCE DAILY ORAL ACTIVE NARESH EL 2018 [facility] FISH OIL CAP,ORAL TAKE BY MOUTH DAILY ORAL ACTIVE NARESH EL 2011 [facility] HYDROCHLORO THIAZIDE 25MG TAB TAKE ONE-HALF TABLET BY MOUTH DAILY ORAL ACTIVE NARESH EL 2016 [facility] IRBESARTAN 300MG TAB TAKE ONE TABLET BY MOUTH DAILY ORAL ACTIVE NARESH EL 2013 [facility] MULTIVITAMI NS CAP/TAB TAKE ONE TABLET BY MOUTH DAILY ORAL ACTIVE NARESH EL 2011 [facility] SILDENAFIL CITRATE 100MG TAB TAKE ONE TABLET BY MOUTH ONCE DAILY NEEDED TAKE 1 HOUR PRIOR TO SEXUAL ACTIVITY ORAL ACTIVE 08/12/2025 [id number] Janel ESPITIA 2023 18 [facility] SILDENAFIL CITRATE 100MG TAB TAKE ONE TABLET BY MOUTH ONCE DAILY NEEDED TAKE 1 HOUR PRIOR TO SEXUAL ACTIVITY ORAL DISCONT INUED 07/19/2024 [id number] 4 NARESH EL 2022 6 [facility] SIMVASTATIN 80MG TAB TAKE ONE-HALF TABLET BY MOUTH AT BEDTIME FOR CHOLESTE ROL ORAL ACTIVE 05/09/2025 [id number] 4 TATIANA OCHOA F 2023 45 IELD SIMVASTATIN 80MG TAB TAKE ONE-HALF TABLET BY MOUTH AT BEDTIME FOR CHOLESTE ROL ORAL DISCONT INUED 05/21/2024 [id number] NARESH EL 2022 45 [facility] Allergies, Adverse Reactions, Alerts Combined list of allergies from Department of Defense and Veterans Affairs facilities. It does not include entries that were removed or entered in error. Substance Category Reaction Severity Reaction type Status Date Reported Comments Source AMLODIPINE Propensity to adverse reactions to drug (finding) Eruption active 9 [facility] LISINOPRIL Propensity to adverse reactions to drug (finding) Eruption MILD active 9 [facility] [place] [facility] Immunizations Combined list of available immunizations from the Department of Defense and Veterans Affairs facilities. Immunization Series Date Given Administered By Site Reaction Lot Number CVX Code Drug Trestle Builder Status Comments Source INFLUENZA, UNSPECIFIED FORMULATION 2023 88 complet ed [facility] INFLUENZA, UNSPECIFIED FORMULATION 2022 88 complet ed [facility] INFLUENZA, UNSPECIFIED FORMULATION 2020 88 complet ed [facility] ZOSTER RECOMBINANT 2 2018 187 complet ed yes [facility] INFLUENZA, SEASONAL, INJECTABLE 2018 141 complet ed [facility] ZOSTER RECOMBINANT 1 2018 187 complet ed yes [facility] INFLUENZA, SEASONAL, INJECTABLE 2016 141 complet ed outside pharm [facility] FLU,3 YRS (HISTORICAL) 2015 88 complet ed At outside PCP [facility] FLU,3 YRS (HISTORICAL) 2014 88 complet ed Site: Left Deltoid [place] FLU,3 YRS (HISTORICAL) 2013 88 complet ed Outside provider [facility] FLU,3 YRS (HISTORICAL) 2012 88 complet ed Site: Left Deltoid [place] FLU,3 YRS (HISTORICAL) 2011 88 complet ed Site: Left Deltoid [place] FLU,3 YRS (HISTORICAL) 2010 88 complet ed Pt. was at [facility] and got vaccinate d! [facility] DTAP, UNSPECIFIED FORMULATION 2010 107 complet ed Site: Right Deltoid [place] FLU,3 YRS (HISTORICAL) 2009 88 complet ed [facility] NOVEL INFLUENZA-H1N 1-09, ALL FORMULATIONS 2009 128 complet ed [facility] FLU,3 YRS (HISTORICAL) 2008 88 complet ed [facility] FLU,3 YRS (HISTORICAL) 2007 88 complet ed [facility] FLU,3 YRS (HISTORICAL) 2006 88 complet ed [facility] FLU,3 YRS (HISTORICAL) 2000 LALO DUNBAR NN H 88 complet ed [place] Results Combined list of recent chemistry, hematology and other laboratory results from Department of Defense and Veterans Affairs, ranging from 15 months to all on record, depending upon the facility. Order Name Results Value Reference Range Date Interpretation Specimen Comments Source PSA PROSTATE SPECIFIC AG [MASS/VOLU ME] IN SERUM OR PLASMA 3.03 ng/mL 0.00 - 4.00 06/23 Specimen Type: SERUM No comment entered. Ordering Provider: GERMAN EL IE Report Released Date/Time: Jun 26, 2023 03:38 PM Reporting Lab: [address] [address] Performing Lab: [address] [address] [place] HEMOGLOB IN A1C PANEL HEMOGLOBIN A1C/HEMOGL OBIN.TOTAL IN BLOOD BY HPLC 5.5 4.0 - 5.6 06/23 Specimen Type: BLOOD Comment: Values obtained from A1C measurement s can vary. For atypical A1C assays, a reported value of 7.0 could actually be between 6.72 and 7.28 if measured by a reference method. A reported value of 9.0 could actually be between 8.73 and 9.27. Ref: http://www. ngsp.org/[place] Pdata.asp Ordering Provider: GERMAN EL IE Report Released Date/Time: Jun 26, 2023 03:38 PM Reporting Lab: [address] [address] Performing Lab: [address] [address] [place] LIPID PANEL FASTING CHOLESTERO L [MASS/VOLU ME] IN SERUM OR PLASMA 240 mg/dL 06/23 H Specimen Type: SERUM No comment entered. Ordering Provider: GERMAN EL IE Report Released Date/Time: Jun 26, 2023 03:38 PM Reporting Lab: [address] [address] Performing Lab: [address] [address] [place] LIPID PANEL FASTING TRIGLYCERI DE [MASS/VOLU ME] IN SERUM OR PLASMA 167 mg/dL 0 - 150 06/23 H Specimen Type: SERUM No comment entered. Ordering Provider: GERMAN EL IE Report Released Date/Time: Jun 26, 2023 03:38 PM Reporting Lab: [address] [address] Performing Lab: [address] [address] [place] LIPID PANEL FASTING CHOLESTERO L IN LDL [MASS/VOLU ME] IN SERUM OR PLASMA BY JUANITO Jernigan 158 mg/dL 0 - 129 06/23 H Specimen Type: SERUM No comment entered. Ordering Provider: GERMAN EL IE Report Released Date/Time: Jun 26, 2023 03:38 PM Reporting Lab: [facility]TR[facility] [address] [facility] [address] Performing Lab: [facility] [address] [facility] [address] [place] LIPID PANEL FASTING CHOLESTERO L.TOTAL/CH OLESTEROL IN HDL [MASS RATIO] IN SERUM OR PLASMA 4.9 06/23 Specimen Type: SERUM No comment entered. Ordering Provider: GERMAN EL IE Report Released Date/Time: Jun 26, 2023 03:38 PM Reporting Lab: [facility]ITALRD.W. [facility]PITALN [facility] [address] [facility] [address] Performing Lab: [facility]OSPITALRL TRN [facility]ITAL[facility] [address] [facility] [address] [place] LIPID PANEL FASTING CHOLESTERO L IN HDL [MASS/VOLU ME] IN SERUM OR PLASMA 49 mg/dL 40 - 60 06/23 Specimen Type: SERUM No comment entered. Ordering Provider: GERMAN EL IE Report Released Date/Time: Jun 26, 2023 03:38 PM Reporting Lab: [facility]ITALRD.[facility]OSPITALN [facility] [address] [facility] [address] Performing Lab: [facility] HOSPITALRL TRN [facility]ITAL[facility]ETS [facility] [address] [facility] [address] [place] LIVER FUNCTION PROTEIN [MASS/VOLU ME] IN SERUM OR PLASMA 7.4 g/dL 6.0 - 8.3 06/23 Specimen Type: SERUM No comment entered. Ordering Provider: GERMAN EL IE Report Released Date/Time: Jun 26, 2023 03:38 PM Reporting Lab: [facility]OSPITALRL TRN [facility] [address] [facility] [address] Performing Lab: [facility]ITALRWALKER [facility]OSPITALTRN [facility]ITALUSETS [address] [address] [place] LIVER FUNCTION ALBUMIN [MASS/VOLU ME] IN SERUM OR PLASMA 4.4 g/dL 3.5 - 5.0 06/23 Specimen Type: SERUM No comment entered. Ordering Provider: GERMAN EL IE Report Released Date/Time: Jun 26, 2023 03:38 PM Reporting Lab: [facility]ITALRD.W. [facility]OSPITALN [address] [address] Performing Lab: [facility]ITALRD.W[facility]OSPITALN [address] [address] [facility] LIVER FUNCTION ALKALINE PHOSPHATAS E [ENZYMATIC ACTIVITY/V OLUME] IN SERUM OR PLASMA 81 U/L 40 - 150 06/23 Specimen Type: SERUM No comment entered. Ordering Provider: GERMAN EL IE Report Released Date/Time: Jun 26, 2023 03:38 PM Reporting Lab: [address] [address] Performing Lab: [facility]ITALRD.W[facility]OSPITALN [address] [address] [facility] LIVER FUNCTION ASPARTATE AMINOTRANS FERASE [ENZYMATIC ACTIVITY/V OLUME] IN SERUM OR PLASMA 22 U/L 5 - 34 06/23 Specimen Type: SERUM No comment entered. Ordering Provider: GERMAN EL IE Report Released Date/Time: Jun 26, 2023 03:38 PM Reporting Lab: [facility] [address] [address] Performing Lab: [facility] [address] [address] [facility] LIVER FUNCTION ALANINE AMINOTRANS FERASE [ENZYMATIC ACTIVITY/V OLUME] IN SERUM OR PLASMA 34 U/L 06/23 Specimen Type: SERUM No comment entered. Ordering Provider: GERMAN EL IE Report Released Date/Time: Jun 26, 2023 03:38 PM Reporting Lab: [facility]ITALRD.[facility]PITALN [address] [address] Performing Lab: [facility] [address] [address] [facility] LIVER FUNCTION BILIRUBIN. TOTAL [MASS/VOLU ME] IN SERUM OR PLASMA 0.6 mg/dL 0.2 - 1.2 06/23 Specimen Type: SERUM No comment entered. Ordering Provider: GERMAN EL IE Report Released Date/Time: Jun 26, 2023 03:38 PM Reporting Lab: [facility] [address] [facility] [address] Performing Lab: [address] [address] [place] BASIC METABOLI C PANEL (fasting ) UREA NITROGEN [MASS/VOLU ME] IN SERUM OR PLASMA 20 mg/dL 7 - 25 06/23 Specimen Type: SERUM No comment entered. Ordering Provider: GERMAN EL IE Report Released Date/Time: Jun 26, 2023 03:38 PM Reporting Lab: [address] [address] Performing Lab: [address] [address] [place] BASIC METABOLI C PANEL (fasting ) GLUCOSE [MASS/VOLU ME] IN SERUM OR PLASMA 104 mg/dL 65 - 100 06/23 H Specimen Type: SERUM No comment entered. Ordering Provider: GERMAN EL IE Report Released Date/Time: Jun 26, 2023 03:38 PM Reporting Lab: [address] [address] Performing Lab: [address] [address] [place] BASIC METABOLI C PANEL (fasting ) SODIUM [MOLES/VOL UME] IN SERUM OR PLASMA 142 mmol/L 135 - 145 06/23 Specimen Type: SERUM No comment entered. Ordering Provider: GERMAN EL IE Report Released Date/Time: Jun 26, 2023 03:38 PM Reporting Lab: [address] [address] Performing Lab: [address] [address] [place] BASIC METABOLI C PANEL (fasting ) POTASSIUM [MOLES/VOL UME] IN SERUM OR PLASMA 4.1 mmol/L 3.5 - 5.0 06/23 Specimen Type: SERUM No comment entered. Ordering Provider: GERMAN EL IE Report Released Date/Time: Jun 26, 2023 03:38 PM Reporting Lab: [facility]ITALRWALKER COUNTY HOSPITALTRN [address] [address] Performing Lab: [facility]PITALRD.W. [facility]OSPITALN [address] [address] [place] BASIC METABOLI C PANEL (fasting ) CHLORIDE [MOLES/VOL UME] IN SERUM OR PLASMA 103 mmol/L 100 - 110 06/23 Specimen Type: SERUM No comment entered. Ordering Provider: GERMAN EL IE Report Released Date/Time: Jun 26, 2023 03:38 PM Reporting Lab: [facility] [address] [address] Performing Lab: [facility] [address] [address] [facility] BASIC METABOLI C PANEL (fasting ) CARBON DIOXIDE, TOTAL [MOLES/VOL UME] IN SERUM OR PLASMA 27 meq/L 20 - 30 06/23 Specimen Type: SERUM No comment entered. Ordering Provider: GERMAN EL IE Report Released Date/Time: Jun 26, 2023 03:38 PM Reporting Lab: [facility] [address] [address] Performing Lab: [facility]PITALRD.W. [facility] HOSPITALN [facility]USE[address] [address] [facility] BASIC METABOLI C PANEL (fasting ) CREATININE [MASS/VOLU ME] IN SERUM OR PLASMA 1.07 mg/dL 0.50 - 1.40 06/23 Specimen Type: SERUM No comment entered. Ordering Provider: GERMAN EL IE Report Released Date/Time: Jun 26, 2023 03:38 PM Reporting Lab: [facility]ITALRWALK[facility] COUNTY HOSPITALTRN [facility]ITALUSE[address] [address] Performing Lab: [facility]OSPITALRD.W. [facility]OSPITALN [facility]ITALUSE[address] [address] [place] BASIC METABOLI C PANEL (fasting ) GLOMERULAR FILTRATION RATE/1.73 SQ M.PREDICTE D [VOLUME RATE/AREA] IN SERUM, PLASMA OR BLOOD BY CREATININE -BASED FORMULA (CKD-EPI 2020) 77 mL/min 60 06/23 Specimen Type: SERUM No comment entered. Ordering Provider: GERMAN EL IE Report Released Date/Time: Jun 26, 2023 03:38 PM Reporting Lab: [facility]N [facility]ITALUSE[address] [address] Performing Lab: [facility]OSPITALRD.W. [facility]OSPITALN [facility]ENTERCHUSE[address] [address] [place] TSH THYROTROPI N [UNITS/VOL UME] IN SERUM OR PLASMA 1.86 u[IU]/mL 0.35 - 5.00 06/23 Specimen Type: SERUM No comment entered. Ordering Provider: GERMAN EL IE Report Released Date/Time: Jun 26, 2023 03:38 PM Reporting Lab: [facility] [address] [address] Performing Lab: [facility]ITALN [facility]ITALUSE[address] [address] [place] URINALYS IS COLOR OF URINE Light-Ye llow 06/23 Specimen Type: URINE Comment: If Glucose = >500 and Ketones are positive, please alert the Physician. Ordering Provider: GERMAN EL IE Report Released Date/Time: Jun 26, 2023 03:38 PM Reporting Lab: [facility]N [facility]ITALUSE[address] [address] Performing Lab: [facility]ITALRWALK[facility] COUNTY HOSPITALTRN [facility]ITALUSE[address] [address] [place] URINALYS IS APPEARANCE OF URINE Clear 06/23 Specimen Type: URINE Comment: If Glucose = >500 and Ketones are positive, please alert the Physician. Ordering Provider: GERMAN EL IE Report Released Date/Time: Jun 26, 2023 03:38 PM Reporting Lab: [facility] [address] [address] Performing Lab: [facility]N [facility]ITALUSE[address] [address] [place] URINALYS IS GLUCOSE [MASS/VOLU ME] IN URINE Normalmg /dL 06/23 Specimen Type: URINE Comment: If Glucose = >500 and Ketones are positive, please alert the Physician. Ordering Provider: GERMAN EL IE Report Released Date/Time: Jun 26, 2023 03:38 PM Reporting Lab: [address] [address] Performing Lab: [address] [address] [place] URINALYS IS KETONES [MASS/VOLU ME] IN URINE BY TEST STRIP NEGATIVE mg/dL 06/23 Specimen Type: URINE Comment: If Glucose = >500 and Ketones are positive, please alert the Physician. Ordering Provider: GERMAN EL IE Report Released Date/Time: Jun 26, 2023 03:38 PM Reporting Lab: [address] [address] Performing Lab: [address] [address] [place] URINALYS IS ERYTHROCYT ES [PRESENCE] IN URINE SEDIMENT BY LIGHT MICROSCOPY NEGATIVE mg/dL 06/23 Specimen Type: URINE Comment: If Glucose = >500 and Ketones are positive, please alert the Physician. Ordering Provider: GERMAN EL IE Report Released Date/Time: Jun 26, 2023 03:38 PM Reporting Lab: [address] [address] Performing Lab: [address] [address] [place] URINALYS IS PROTEIN [MASS/VOLU ME] IN URINE BY TEST STRIP NEGATIVE mg/dL 06/23 Specimen Type: URINE Comment: If Glucose = >500 and Ketones are positive, please alert the Physician. Ordering Provider: GERMAN EL IE Report Released Date/Time: Jun 26, 2023 03:38 PM Reporting Lab: [address] [address] Performing Lab: [address] [address] [place] URINALYS IS NITRITE [PRESENCE] IN URINE NEGATIVE mg/dL 06/23 Specimen Type: URINE Comment: If Glucose = >500 and Ketones are positive, please alert the Physician. Ordering Provider: GERMAN EL IE Report Released Date/Time: Jun 26, 2023 03:38 PM Reporting Lab: [address] [address] Performing Lab: [address] [address] [place] URINALYS IS BILIRUBIN. TOTAL [PRESENCE] IN URINE NEGATIVE mg/dL 06/23 Specimen Type: URINE Comment: If Glucose = >500 and Ketones are positive, please alert the Physician. Ordering Provider: GERMAN EL IE Report Released Date/Time: Jun 26, 2023 03:38 PM Reporting Lab: [address] [address] Performing Lab: [address] [address] [place] URINALYS IS SPECIFIC GRAVITY OF URINE BY REFRACTOME TRY 1.020 1.016 - 1.022 06/23 Specimen Type: URINE Comment: If Glucose = >500 and Ketones are positive, please alert the Physician. Ordering Provider: GERMAN EL Report Released Date/Time: Jun 26, 2023 03:38 PM Reporting Lab: [address] [address] Performing Lab: [address] [address] [place] URINALYS IS PH OF URINE BY TEST STRIP 7.0 5.0 - 9.0 06/23 Specimen Type: URINE Comment: If Glucose = >500 and Ketones are positive, please alert the Physician. Ordering Provider: GERMAN EL IE Report Released Date/Time: Jun 26, 2023 03:38 PM Reporting Lab: [address] [place] [address] Performing Lab: [facility] [address] [facility] [address] [place] URINALYS IS UROBILINOG EN [MASS/VOLU ME] IN URINE BY TEST STRIP Normalmg /dL <2.0 - 2.0 06/23 Specimen Type: URINE Comment: If Glucose = >500 and Ketones are positive, please alert the Physician. Ordering Provider: GERMAN EL IE Report Released Date/Time: Jun 26, 2023 03:38 PM Reporting Lab: [address] [address] Performing Lab: [address] [address] [place] URINALYS IS LEUKOCYTE ESTERASE [PRESENCE] IN URINE BY TEST STRIP NEGATIVE 06/23 Specimen Type: URINE Comment: If Glucose = >500 and Ketones are positive, please alert the Physician. Ordering Provider: GERMAN EL IE Report Released Date/Time: Jun 26, 2023 03:38 PM Reporting Lab: [address] [address] Performing Lab: [address] [address] [place] CBC AND DIFF (AUTO) LEUKOCYTES [#/VOLUME] IN BLOOD BY AUTOMATED COUNT 9.91 10*3/uL 4.50 - 11.00 06/23 Specimen Type: BLOOD No comment entered. Ordering Provider: GERMAN EL IE Report Released Date/Time: Jun 26, 2023 03:38 PM Reporting Lab: [address] [address] Performing Lab: [address] [address] [place] CBC AND DIFF (AUTO) ERYTHROCYT ES [#/VOLUME] IN BLOOD BY AUTOMATED COUNT 5.29 10*6/uL 4.23 - 5.66 06/23 Specimen Type: BLOOD No comment entered. Ordering Provider: GERMAN EL IE Report Released Date/Time: Jun 26, 2023 03:38 PM Reporting Lab: [facility]ITALRWALK[facility] HOSPITALTRN [facility]ITALUSETS [facility] [address] [facility] [address] Performing Lab: [facility]OS[facility]ITALRD.W. [facility]OS[facility]ITALN [facility]ITALUSE[facility] [address] [facility] [address] [place] CBC AND DIFF (AUTO) HEMOGLOBIN [MASS/VOLU ME] IN BLOOD 16.0 g/dL 12.8 - 17 06/23 Specimen Type: BLOOD No comment entered. Ordering Provider: GERMAN EL IE Report Released Date/Time: Jun 26, 2023 03:38 PM Reporting Lab: [facility]ITALRD.W. [facility] HOSPITALN [facility] [address] [facility] [address] Performing Lab: [facility]ITALRD.W. [facility]OSPITALN [facility]ITALUSE[address] [address] [place] CBC AND DIFF (AUTO) HEMATOCRIT [VOLUME FRACTION] OF BLOOD BY AUTOMATED COUNT 47.7 39.2 - 50.4 06/23 Specimen Type: BLOOD No comment entered. Ordering Provider: GERMAN EL IE Report Released Date/Time: Jun 26, 2023 03:38 PM Reporting Lab: [facility]ITALRD.W. [facility] HOSPITALN [facility] [address] [facility] [address] Performing Lab: [facility]ITALRWALK[facility] HOSPITALTRN [facility]ITALUSE[address] [address] [place] CBC AND DIFF (AUTO) MCV [ENTITIC VOLUME] BY AUTOMATED COUNT 90.2 fL 82 - 99 06/23 Specimen Type: BLOOD No comment entered. Ordering Provider: GERMAN EL IE Report Released Date/Time: Jun 26, 2023 03:38 PM Reporting Lab: [facility]ITALRWALK[facility]OSPITALTRN [facility] HOSPITALUSETS [facility] [address] [facility] [id number] Performing Lab: [facility]ITALRWALK[facility] HOSPITALTRN [facility]ITALUSE[address] [address] [place] CBC AND DIFF (AUTO) MCHC [MASS/VOLU ME] BY AUTOMATED COUNT 33.5 g/dL 30.8 - 35.1 06/23 Specimen Type: BLOOD No comment entered. Ordering Provider: GERMAN EL IE Report Released Date/Time: Jun 26, 2023 03:38 PM Reporting Lab: [facility] [place] [facility] [address] [facility] [address] Performing Lab: [facility]TR[facility] [address] [facility] [address] [place] CBC AND DIFF (AUTO) PLATELETS [#/VOLUME] IN BLOOD BY AUTOMATED COUNT 349 10*3/uL 140 - 360 06/23 Specimen Type: BLOOD No comment entered. Ordering Provider: GERMAN EL IE Report Released Date/Time: Jun 26, 2023 03:38 PM Reporting Lab: [facility]TRN [facility] [address] [facility] [address] Performing Lab: [facility]TR[facility] [address] [address] [place] CBC AND DIFF (AUTO) ERYTHROCYT E DISTRIBUTI ON WIDTH [RATIO] BY AUTOMATED COUNT 12.7 12.0 - 16.0 06/23 Specimen Type: BLOOD No comment entered. Ordering Provider: GERMAN EL IE Report Released Date/Time: Jun 26, 2023 03:38 PM Reporting Lab: [facility] [place] [facility] [address] [facility] [address] Performing Lab: [facility] [address] [place] CBC AND DIFF (AUTO) MONOCYTES [#/VOLUME] IN BLOOD BY AUTOMATED COUNT 0.89 10*3/uL 0.30 - 1.10 06/23 Specimen Type: BLOOD No comment entered. Ordering Provider: GERMAN EL IE Report Released Date/Time: Jun 26, 2023 03:38 PM Reporting Lab: [facility] [place] [facility] [address] [facility] [address] Performing Lab: [facility]ITALRW[facility]ITALTRN [facility]USE[address] [address] [place] CBC AND DIFF (AUTO) MCH [ENTITIC MASS] BY AUTOMATED COUNT 30.2 pg 26.2 - 32.6 06/23 Specimen Type: BLOOD No comment entered. Ordering Provider: GERMAN EL IE Report Released Date/Time: Jun 26, 2023 03:38 PM Reporting Lab: [facility] [place] [facility] [address] [facility] [address] Performing Lab: [facility] [place] [address] [address] [place] CBC AND DIFF (AUTO) NEUTROPHIL S/100 LEUKOCYTES IN BLOOD BY AUTOMATED COUNT 66.6 43.7 - 75.8 06/23 Specimen Type: BLOOD No comment entered. Ordering Provider: GERMAN EL IE Report Released Date/Time: Jun 26, 2023 03:38 PM Reporting Lab: [facility] [place] [facility] [address] [facility] [address] Performing Lab: [facility] [address] [address] [place] CBC AND DIFF (AUTO) LYMPHOCYTE S/100 LEUKOCYTES IN BLOOD BY AUTOMATED COUNT 17.6 14.0 - 42.3 06/23 Specimen Type: BLOOD No comment entered. Ordering Provider: GERMAN EL IE Report Released Date/Time: Jun 26, 2023 03:38 PM Reporting Lab: [facility] [place] [address] [address] Performing Lab: [facility] [place] [address] [address] [place] CBC AND DIFF (AUTO) MONOCYTES/ 100 LEUKOCYTES IN BLOOD BY AUTOMATED COUNT 9.0 5.1 - 13.7 06/23 Specimen Type: BLOOD No comment entered. Ordering Provider: GERMAN EL IE Report Released Date/Time: Jun 26, 2023 03:38 PM Reporting Lab: [facility] [place] [address] [address] Performing Lab: [facility] [address] [address] [place] CBC AND DIFF (AUTO) EOSINOPHIL S/100 LEUKOCYTES IN BLOOD BY AUTOMATED COUNT 4.7 0.4 - 6.8 06/23 Specimen Type: BLOOD No comment entered. Ordering Provider: GERMAN EL IE Report Released Date/Time: Jun 26, 2023 03:38 PM Reporting Lab: [facility] [address] [address] Performing Lab: [facility]ITALRWALK[facility]PITALTRN [address] [address] [place] CBC AND DIFF (AUTO) BASOPHILS/ 100 LEUKOCYTES IN BLOOD BY AUTOMATED COUNT 0.6 0.1 - 2.0 06/23 Specimen Type: BLOOD No comment entered. Ordering Provider: GERMAN EL IE Report Released Date/Time: Jun 26, 2023 03:38 PM Reporting Lab: [facility]ITALRL TRN [facility]ITAL[facility] [address] Performing Lab: [facility]OSPITALRL RUSTN [address] [address] [place] CBC AND DIFF (AUTO) NEUTROPHIL S [#/VOLUME] IN BLOOD BY AUTOMATED COUNT 6.60 10*3/uL 2.20 - 7.60 06/23 Specimen Type: BLOOD No comment entered. Ordering Provider: GERMAN EL IE Report Released Date/Time: Jun 26, 2023 03:38 PM Reporting Lab: [facility]ITALRL TRN [facility]ITALUSETS [address] [address] Performing Lab: [facility]ITALRL TRN [facility]ITAL[facility] [address] [place] CBC AND DIFF (AUTO) LYMPHOCYTE S [#/VOLUME] IN BLOOD BY AUTOMATED COUNT 1.74 10*3/uL 1.00 - 3.20 06/23 Specimen Type: BLOOD No comment entered. Ordering Provider: GERMAN EL IE Report Released Date/Time: Jun 26, 2023 03:38 PM Reporting Lab: [facility]ITALRL TRN [facility]ITAL[facility] [address] Performing Lab: [facility] HOSPITALRD.W. [facility]ITALN [address] [address] [place] CBC AND DIFF (AUTO) EOSINOPHIL S [#/VOLUME] IN BLOOD BY AUTOMATED COUNT 0.47 10*3/uL 0.03 - 0.44 06/23 H Specimen Type: BLOOD No comment entered. Ordering Provider: GERMAN EL IE Report Released Date/Time: Jun 26, 2023 03:38 PM Reporting Lab: [facility] [address] [facility] [address] Performing Lab: [facility]ITALUSETS [address] [address] [place] CBC AND DIFF (AUTO) BASOPHILS [#/VOLUME] IN BLOOD BY AUTOMATED COUNT 0.06 10*3/uL 0.01 - 0.13 06/23 Specimen Type: BLOOD No comment entered. Ordering Provider: GERMAN EL IE Report Released Date/Time: Jun 26, 2023 03:38 PM Reporting Lab: [facility]ITAL[facility] [address] [address] Performing Lab: [facility] TR[facility]ITAL[facility] [address] [place] CBC AND DIFF (AUTO) IMMATURE GRANULOCYT ES/100 LEUKOCYTES IN BLOOD BY AUTOMATED COUNT 1.5 0.0 - 0.7 06/23 H Specimen Type: BLOOD No comment entered. Ordering Provider: GERMAN EL IE Report Released Date/Time: Jun 26, 2023 03:38 PM Reporting Lab: [facility]PITALRL TRN [facility]ITALUSETS [address] [address] Performing Lab: [facility]ITALUS[facility] [address] [address] [place] CBC AND DIFF (AUTO) IMMATURE GRANULOCYT ES [#/VOLUME] IN BLOOD 0.15 10*3/uL 0.00 - 0.06 06/23 H Specimen Type: BLOOD No comment entered. Ordering Provider: GERMAN EL IE Report Released Date/Time: Jun 26, 2023 03:38 PM Reporting Lab: [facility]ITAL[facility] [address] [address] Performing Lab: [facility]OSPITALRL TRN [facility]ITAL[facility] [address] [place] CBC AND DIFF (AUTO) NRBC % 0.0 0.0 - 0.0 06/23 Specimen Type: BLOOD No comment entered. Ordering Provider: GERMAN EL IE Report Released Date/Time: Jun 26, 2023 03:38 PM Reporting Lab: [facility] [address] [address] Performing Lab: [facility] [address] [address] [place] CBC AND DIFF (AUTO) NRBC, ABS 0.00 10*3/uL 0.00 - 0.00 06/23 Specimen Type: BLOOD No comment entered. Ordering Provider: GERMAN EL IE Report Released Date/Time: Jun 26, 2023 03:38 PM Reporting Lab: [facility] [address] [address] Performing Lab: [facility] [address] [address] [place] HEMOGLOB IN A1C PANEL HEMOGLOBIN A1C/HEMOGL OBIN.TOTAL IN BLOOD BY HPLC 5.4 4.0 - 5.6 04/26 Specimen Type: BLOOD Comment: Values obtained from A1C measurement s can vary. For atypical A1C assays, a reported value of 7.0 could actually be between 6.72 and 7.28 if measured by a reference method. A reported value of 9.0 could actually be between 8.73 and 9.27. Ref: http://www. ngsp.org/[place] Pdata.asp Ordering Provider: GERMAN EL IE Report Released Date/Time: May 08, 2022 09:49 AM Reporting Lab: [facility] [address] [address] Performing Lab: [facility] [address] [address] [place] TSH THYROTROPI N [UNITS/VOL UME] IN SERUM OR PLASMA 2.30 u[IU]/mL 0.35 - 5.00 04/26 Specimen Type: SERUM No comment entered. Ordering Provider: GERMAN EL IE Report Released Date/Time: May 08, 2022 09:49 AM Reporting Lab: [facility] HOSPITALRD.W. [facility]OSPITALN [address] [address] Performing Lab: [facility] [address] [address] [place] Vital Signs Combined list of inpatient and outpatient Vital Signs from Department of Defense and Veterans Affairs, ranging from 12 months to all on record, depending upon the facility. Vital Sign Value Date Comments Source SYSTOLIC BLOOD PRESSURE 147 06/30/2024 10:58:31 [facility] DIASTOLIC BLOOD PRESSURE 91 06/30/2024 10:58:31 [facility] PULSE OXIMETRY 96 06/30/2024 10:58:31 S GREGG WEIGHT 220 06/30/2024 10:58:31 [facility] BMI 30kg/m2 06/30/2024 10:58:31 [facility] PULSE 90 06/30/2024 10:58:31 DAY[facility]U Encounters Combined list of: 1) Encounters from Department of Veterans Affairs facilities going back up to thelast 18 months. 2) Encounters from the Department of Defense facilities going back up to 280 months. Location Location Details Encounter Type Encounter Number Reason For Visit Attending Provider ADM Date DC Date Status Disposition Source [facility] [id number] 03/26 [facility] [id number] 04/30 [facility] [id number] 05/07 [place] [facility] Encounter [id number] 05/14 [facility] [id number] 05/21 [facility] Outpatient Encounter [id number] 06/[facility] [id number] 06/26 [facility] En[facility] [id number] 06/26 [facility] [place] [facility] OFFICE O/P EST MOD 30-39 MIN [id number] Diagnos is: ICD-10- CM I10 Essenti al (primar y) hyperte nsion<b r/> NIKKO,ANNMA NGOZI 06/26 [place] [facility] AUTOMATIC BP MONITOR, DIAL [id number] Diagnos is: ICD-10- CM I10 Essenti al (primar y) hyperte nsion<b r/> [facility]KK[facility]AS[facility] 06[facility] En[facility] [id number] 07/18 [facility] [id number] 07/23 [facility] En[facility] [id number] 12/06 [facility] En[facility] [id number] 04/24 [facility] [id number] 05/06 [facility] En[facility] [id number] 06/02 [facility] En[facility] [id number] 06/24 [facility] [id number] 06/24 [facility] [place] [facility] [place] Outpatient Encounter [id number] [facility] [place] [facility] OFFICE O/P EST MOD 30 MIN [id number] Diagnos is: ICD-10- CM I10 Essenti al (primar y) hyperte nsion<b r/> STELEA,CAR MEN F 06/30 [facility] [place] [facility] [place] [facility] Outpatient Encounter [id number] 07/01 [facility] [place] [facility] [place] [facility] Outpatient [facility]counter [id number] 1.07/03 [facility] [place] [facility] [place] [facility] Outpatient Encounter [id number] 1.07/14 [facility] [place] [facility]/DOPPLER COMPLETE [id number] Diagnos is: ICD-10- CM I71.20 Thoraci c aortic aneurys m, without rupture , unspeci fied
MESERET SAWYER 07/29 [facility] [place] [facility] OFFICE O/P EST MOD 30 MIN [id number] Diagnos is: ICD-10- CM I79.0 Aneurys m of aorta in disease s classif ied elsewhe re
RAVINDER CAMACHO [facility]/[address] [facility] [place] [facility] Outpatient Encounter [id number] 08/11 [facility] [place] [facility] [place] [facility] Outpatient Encounter [id number] 08/14 [facility] [place] [facility] Out[facility] Encounter [id number] 08/14 [facility] [place] [facility] [facility] Social History Combined list of available smoking, tobacco, and other social history from Department of Defense and Veterans Affairs facilities. Social History Type Response Date Comment Source Tobacco smoking status MNIS [facility]-TOBACCO FORMER USER 06/30/2024 [facility] History of tobacco use OH-TOBACCO QUIT 15 YRS OR MORE 06/30/2024 [facility] History of tobacco use VA-TOBACCO FORMER [facility]ER [facility] [place] [facility] History of tobacco use OH-TOBACCO FORMER USER 05/08/20[facility] [place] [facility] History of tobacco use OH-TOBACCO FORMER USER 08/30/2020 [facility] History of tobacco use OH-TOBACCO QUIT 15 YRS OR MORE 07/24/2018 [facility] History of tobacco use QUIT TOBACCO USE > 7 YEARS AGO 08/20/2017 quit 1997 [facility] History of tobacco use QUIT TOBACCO USE > 7 YEARS AGO 07/31/2016 quit 1996 [facility] History of tobacco use LIFETIME NON-SMOKER 09/22/2005 [facility] History of tobacco use HISTORY OF SMOKING 11/25/2003 quit smoking 10 yrs hx of 1ppd x 20 yr [facility] History of tobacco use QUIT TOBACCO USE > 7 YEARS AGO 01/05/2003 stopped tobacco 8 years ago [facility] History of tobacco use HISTORY OF SMOKING 07/11/2002 quit 8-[address] [facility] History of tobacco use NON-TOBACCO USER 09/06/2001 [facility] History of tobacco use HISTORY OF SMOKING 05/09/2001 Stopped cigaretts 8 years ago [facility] Plan of Care List of future care activities from Department of Veterans Affairs facilities. Additional future care activities may be listed in the Assessment and Plan section. Date/Time Care Activity Care Activity Detail Facili ty 01/02/2025 AMBULATORY - MEDICINE AMBULATORY - MEDICI NE [facility]
--- OUTSIDE RECORDS SUMMARY | 2024-09-12 07:02 | XMS_ITS | Patient Health Record ---
Author Organization Ramon Duenas III, MD Address [address] [place] [address] Care Team Providers Care Building Architectural Designer Name Role Phone Ramon Duenas Primary Care Provider [phone] Allergies Allergen (clinical drug ingredient) Drug/Non Drug Allergy documented on EMR Reaction Allergy Type Onset Date Status Grass Pollen Standardized Ext Unknown Drug Allergy Active Mold Unknown Allergy Active Latex Latex Unknown Allergy Active Dust Mites Unknown Allergy Active Neosporin Unknown Drug Allergy Active Results Component Value Reference Range Notes URINE DIP STICK Reviewed date:12/03/2023 12:16:42 PM Interpretation: Performing Lab: Notes/Report: SG 1.010 1.005 - 1.025 pH 6.5 5.0 - 9.0 DASH Negative Negative - NIT Negative Negative - PRO 15 Negative - Trace GLU Negative Negative - KET Negative Negative - UBG 0.2 0.1 - 1.8 JUANY Negative 0.2 - 1.3 BLD Negative Negative - SCREENING COLONOSCOPY Reviewed date:12/28/2023 09:02:16 AM Interpretation:undefined Performing Lab: Notes/Report: undefined Reason For Referral No Information Medications Medication SIG (Take, Route, Frequency, Duration) Notes Start Date End Date Status Omeprazole 20 MG TAKE 1 CAPSULE BY [facility] DAILY 1/2 HOUR BEFORE BREAKFAST Active Omeprazole 40 MG TAKE 1 CAPSULE BY MO UT ONCE DAILY 1/2 HOUR BEFORE BREAKFAST Orally Once a day for 90 days Active Omeprazole 20 MG 1 tablet 30 minutes before morning meal Orally Once a day 09/08/2019 Active Finasteride 5 MG 1 tablet Orally Once a day Active hydroCHLOROthiazide 12.5 MG TAKE 1 TABLE T BY MOUTH DAILY IN THE MORNING Active Fish Oil 1000 MG 2 capsule Orally Onc e a day Active Simvastatin 40 MG 1 tablet in the even ing Orally Once a day Active Aspirin Adult Low Dose 81 MG 1 tablet Or ally Once a day Active Viagra 100 MG 1 tablet as needed Orally Once a day as needed Active Irbesartan 300 MG TAKE 1 TABLET BY JAKE TH DAILY for 90 Active Immunizations Vaccine Route Administration Date Status Comme nts Influenza, quad IM Intramuscular 06/16/2020 Administered Social History Tobacco Use: Social History Observation Description Date Details (start date - stop date) Former Smoker NA - NA Sex Assigned At : Social History Observation Description Sex Assigned At Male Tobacco Use/Smoking Question Answer Notes Patient is a former smoker How long has it been since you last smoked? > 10 years Additional Findings: Tobacco Non-User Ex-cigaret te smoker Alcohol Screen Question Answer Notes Did you have a drink containing alcohol in the p ast year? No Points 0 Interpretation Negative Problems Problem Type SNOMED Code ICD Code Onset Dates Problem Status W/U Status Risk Notes Problem 4328047 Former smoker (Z87.891) Active confirmed He has a plan in place to prevent relapse in times of stress and illness. Problem 541634113 Overweight (E66.3) Active confirmed He remains somewhat overweight. We discussed his diet and his nutrition. We made a plan to lose weight at a rate of one half of a pound per week through a diet restricted in calories. I recommended regular physical activity as well. Problem 739579894 Mixed hyperlipidemia (E78.2) Active confirmed His lipids are currently stable with a total cholesterol 219. His triglycerides are 144. I recommend aggressive weight loss and a diet restrricted in calories and sodium combined with regular physical activity. Problem 54827034 Other hemorrhoids (K64.8) Active confirmed History discomfort has resolved. Problem 385004051 GERD without esophagitis (K21.9) Active confirmed He is going to take omeprazole 20 mg daily and uses a liquid antacid such as Maalox or Mylanta for breakthrough heartburn. Problem 35912809 Essential hypertension (I10) Active confirmed His blood pressure is currently stable at 141/77. No change in his regimen was necessary. I recommended weight reduction and sodium restriction. Although the systolic is slightly elevated he did not wish more medication. We reviewed the use of sodium restriction weight reduction is no activity in lowering blood pressure. Problem Genital warts (857050516) Genital warts (A63.0) Active confirmed He has not had a recurrence since his initial treatment. Problem 286343146 Benign prostatic hyperplasia without lower urinary tract symptoms (N40.0) Active confirmed His nocturi a has diminished since he began to employ lifestyle modification. Problem 837014015 Elevated PSA (R97.20) Active confirmed His PSA is currently in the normal range and will be followed carefully. Vital Signs Heart Rate 90 /min 04/07/2024 Temperature 97.9 degrees Fahrenheit 04/07/2024 Blood pressure diastolic 77 mm Hg 04/07/2024 Height 73 in 04/07/2024 Blood pressure systolic 141 mm Hg 04/07/2024 Weight 214 lbs 04/07/2024 BMI 28.23 kg/m2 04/07/2024 Encounters Encounter Location Date Provider Diagnosis Ramon Duenas III, MD [address] [place] [address] [place] [id number] 09/18/2023 Ramon Duenas Small bowel obstruct ion K56.609 ; Benign prostatic hyperplasia without lower urinary tract symptoms N40.0 ; Mixed hyperlipidemia E78.2 ; GERD without esophagitis K21.9 ; Essential hypertension I10 ; Elevated PSA R97.20 ; Overweight E66.3 and Former smoker Z87.891 Ramon Duenas III, MD [address] [place] [address] [place] [id number] 12/03/2023 Ramon Duenas Genital warts A63.0 ; Benign prostatic hyperplasia without lower urinary tract symptoms N40.0 ; Mixed hyperlipidemia E78.2 ; GERD without esophagitis K21.9 ; Essential hypertension I10 ; Overweight E66.3 ; Elevated PSA R97.20 and Former smoker Z87.891 Ramon Duenas III, MD [address] [place] [address] [place] [id number] 12/14/2023 Ramon Duenas Impacted cerumen of right ear H61.21 ; Mixed hyperlipidemia E78.2 ; GERD without esophagitis K21.9 ; Essential hypertension I10 ; Former smoker Z87.891 and Overweight E66.3 Ramon Duenas III, MD [address] [place] [address] [place] [id number] 12/20/2023 Ramon Duenas Impacted cerumen, unspecified ear H61.20 Ramon Duenas III, MD [address] [place] [address] [place] [id number] 01/04/2024 Ramon Duenas Impacted cerumen, unspecified ear H61.20 Ramon Duenas III, MD [address] [place] [address] [place] [id number] 04/07/2024 Ramon Duenas Adenomatous polyp of sigmoid colon D12.5 ; Genital warts A63.0 ; Benign prostatic hyperplasia without lower urinary tract symptoms N40.0 ; Mixed hyperlipidemia E78.2 ; GERD without esophagitis K21.9 ; Essential hypertension I10 ; Elevated PSA R97.20 ; Overweight E66.3 and Former smoker Z87.891 Ramon Duenas III, MD [address] [place] [address] [place] [id number] 09/13/2023 Ramon Duenas III, MD [address] [place] [address] [place] [id number] 12/24/2023 Ramon Duenas III, MD [address] [place] [address] [place] [id number] 06/23/2024 Ramon Duenas HIV exposure Z20.6 Ramon Duenas III, MD [address] [place] [address] [place] [id number] 09/01/2024 Ramon Duenas Assessments Encounter Date Diagnosis (ICD Code) Assessment Notes Treat ment Notes Treatment Clinical Notes 09/18/2023 Benign prostatic hyperplasia without lower urinary tract symptoms (ICD-10 - N40.0) He rreports arising from sleep once or twice a night. We discussed lifestyle modification is related to reduce nocturnal urinating. No change in his regimen was necessary. 09/18/2023 Small bowel obstruction (ICD-10 - K56.609) The obstruction resulted in and overnight stay in the hospital but spontaneously resolved. He will be seen back in the office for physical examination. Surveillance and further management. He is currently able to eat and drink without difficulty. 12/03/2023 Genital warts (ICD-1 0 - A63.0) He has not had a recurrence since his initial treatment. 12/03/2023 Benign prostatic hyperplasia without lower urinary tract symptoms (ICD-10 - N40.0) He rreports arising from sleep once or twice a night. We discussed lifestyle modification is related to reduce nocturnal urinating. No change in his regimen was necessary. 12/14/2023 Mixed hyperlipidemia (ICD-10 - E78.2) His lipids are currently stable with a total cholesterol 219. His triglycerides are 144. I recommend aggressive weight loss and a diet restrricted in calories and sodium combined with regular physical activity. 12/14/2023 Impacted cerumen of right ear (ICD-10 - H61.21) He will use the drops for a week and then return for warm water irrigation to clear the impaction. 12/20/2023 Impacted cerumen, unspecified ear (ICD-10 - H61.20) 01/04/2024 Impacted cerumen, unspecified ear (ICD-10 - H61.20) He underwent warm water irrigation of both ear canals with removal of the cerumen impaction. There were no complications. He had no bleeding. He reported improved hearing at the end of the procedure. 04/07/2024 Genital warts (ICD-1 0 - A63.0) He has not had a recurrence since his initial treatment. 04/07/2024 Adenomatous polyp of sigmoid colon (ICD-10 - D12.5) The polyp was removed. He will undergo colonoscopy every 5 years. 06/23/2024 HIV exposure (ICD-10 - Z20.6) 09/18/2023 Mixed hyperlipidemia (ICD-10 - E78.2) His lipids are currently stable with a total cholesterol 219. His triglycerides are 144. I recommend aggressive weight loss and a diet restrricted in calories and sodium combined with regular physical activity. 12/03/2023 Mixed hyperlipidemia (ICD-10 - E78.2) His lipids are currently stable with a total cholesterol 219. His triglycerides are 144. I recommend aggressive weight loss and a diet restrricted in calories and sodium combined with regular physical activity. 12/14/2023 GERD without esophagitis (ICD-10 - K21.9) He is going to take omeprazole 20 mg daily and uses a liquid antacid such as Maalox or Mylanta for breakthrough heartburn. 04/07/2024 Benign prostatic hyperplasia without lower urinary tract symptoms (ICD-10 - N40.0) His nocturia has diminished since he began to employ lifestyle modification. 09/18/2023 GERD without esophagitis (ICD-10 - K21.9) He is going to take omeprazole 20 mg daily and uses a liquid antacid such as Maalox or Mylanta for breakthrough heartburn. 12/03/2023 GERD without esophagitis (ICD-10 - K21.9) He is going to take omeprazole 20 mg daily and uses a liquid antacid such as Maalox or Mylanta for breakthrough heartburn. 12/14/2023 Essential hypertension (ICD-10 - I10) His blood pressure is currently stable at 138/72. No change in his regimen was necessary. I recommended weight reduction and sodium restriction. 04/07/2024 Mixed hyperlipidemia (ICD-10 - E78.2) His lipids are currently stable with a total cholesterol 219. His triglycerides are 144. I recommend aggressive weight loss and a diet restrricted in calories and sodium combined with regular physical activity. 09/18/2023 Essential hypertension (ICD-10 - I10) His blood pressure is currently stable at 132/78. No change in his regimen was necessary. I recommended weight reduction and sodium restriction. 12/03/2023 Essential hypertension (ICD-10 - I10) His blood pressure is currently stable at 138/72. No change in his regimen was necessary. I recommended weight reduction and sodium restriction. 12/14/2023 Former smoker (ICD-1 0 - Z87.891) He has a plan in place to prevent relapse in times of stress and illness. 04/07/2024 GERD without esophagitis (ICD-10 - K21.9) He is going to take omeprazole 20 mg daily and uses a liquid antacid such as Maalox or Mylanta for breakthrough heartburn. 09/18/2023 Elevated PSA (ICD-10 - R97.20) His PSA is currently in the normal range and will be followed carefully. 12/03/2023 Overweight (ICD-10 - E66.3) He remains somewhat overweight. We discussed his diet and his nutrition. We made a plan to lose weight at a rate of one half of a pound per week through a diet restricted in calories. I recommended regular physical activity as well. 12/14/2023 Overweight (ICD-10 - E66.3) He remains somewhat overweight. We discussed his diet and his nutrition. We made a plan to lose weight at a rate of one half of a pound per week through a diet restricted in calories. I recommended regular physical activity as well. 04/07/2024 Essential hypertension (ICD-10 - I10) His blood pressure is currently stable at 141/77. No change in his regimen was necessary. I recommended weight reduction and sodium restriction. Although the systolic is slightly elevated he did not wish more medication. We reviewed the use of sodium restriction weight reduction is no activity in lowering blood pressure. 09/18/2023 Overweight (ICD-10 - E66.3) He remains somewhat overweight. We discussed his diet and his nutrition. We made a plan to lose weight at a rate of one half of a pound per week through a diet restricted in calories. I recommended regular physical activity as well. 12/03/2023 Elevated PSA (ICD-10 - R97.20) His PSA is currently in the normal range and will be followed carefully. 04/07/2024 Elevated PSA (ICD-10 - R97.20) His PSA is currently in the normal range and will be followed carefully. 09/18/2023 Former smoker (ICD-1 0 - Z87.891) He has a plan in place to prevent relapse in times of stress and illness. 12/03/2023 Former smoker (ICD-1 0 - Z87.891) He has a plan in place to prevent relapse in times of stress and illness. 04/07/2024 Overweight (ICD-10 - E66.3) He remains [...] of stress and illness. Plan Of Treatment Pending Test Test Name Order Date PROFILE, FASTING (COMPREHENSIVE METABOLI C) 10/13/2019 PROFILE, FASTING (COMPREHENSIVE METABOLI C) 02/13/2022 PROFILE, FASTING (COMPREHENSIVE METABOLI C) 07/18/2021 PROFILE, FASTING (COMPREHENSIVE METABOLI C) 02/14/2021 PROFILE, FASTING (COMPREHENSIVE METABOLI C) 09/10/2023 PROFILE, RANDOM (COMPREHENSIVE METABOLIC ) 09/08/2019 PROFILE, RANDOM (COMPREHENSIVE METABOLIC ) 11/15/2021 LIPID PANEL 02/14/2021 LIPID PANEL 10/13/2019 LIPID PANEL 02/13/2022 LIPID PANEL 09/08/2019 PSA, TOTAL 02/13/2022 CBC w DIFF 02/14/2021 CBC w DIFF 10/13/2019 CBC w DIFF 02/13/2022 CBC w DIFF 09/08/2019 CBC w DIFF 07/18/2021 CBC w DIFF 11/15/2021 HIV AG/AB 11/15/2021 HIV AG/AB 06/23/2024 HIV AG/AB 10/13/2019 HIV AG/AB 09/08/2019 CBC WITH AUTO DIFF 09/10/2023 Lipid Panel 07/18/2021 Lipid Panel 09/10/2023 HIV Ab/Ag 06/15/2022 HIV Ab/Ag 02/14/2021 HIV Ab/Ag 09/26/2021 Next Appt Details Provider Name:Ramon Duenas, 09/15/2024 11:00:00 AM, [address] [place] [address] DR, [place] [address], [place], [address], Insurance Providers Payer Name Payer Address Payer Phone Subscriber Number Group Number Insured Name Patient Relationship to Insured Coverage Start Date Coverage End Date [facility] [address] [place], [place] [id number] [phone] [id number] Kenny Solano Self - patient is the insured Medical (General) History Medical History History ICD Code Other prostatic inflammatory diseases N4 1.8 hyperlipidemia GERD essential hypertension, onset age 23 dilated ascending aorta elevated PSA overweight 2003 benign cyst, left forehead former smoker Surgical History Surgery Date(Month/Year) left fifth finger injury colonoscopy, benign findings 07/2018 BENIGN CYST REMOVED 2003
--- OUTSIDE RECORDS SUMMARY | 2024-09-12 07:02 | XMS_ITS | Encounter Summary ---
Author Name [facility] [place] Organization [facility] [place] Address [address] [place] [address] Care Team Providers Care Rn Documentation Specialist Name Role Phone WESTON ESPITIA Primary [...] Policy [place] [employer] POINT OF SERVICE TEAMS [facility] [id number] Sep 24, 2012 [id number] RT PATIENT [place] ([place]UE [place]) PREFERRED PROVIDER ORGANIZAT ION (PPO) TEAMS [facility] 404 Sep 24, 2022 [id number] [place], [place] PATIENT [place] ([place]) PREFERRED PROVIDER ORGANIZAT ION (PPO) TEAMS [facility] [id number] Mar 24, 2014 [id number] [phone] [place], RT PATIENT [facility] PRESCRIPT ION [facility] [place] TEAMS [facility] Sep 24, 2019 [id number] [phone] [place] RT PATIENT [employer] ([id number]) PRESCRIPT ION TEAMS [facility] Mar 24, 2014 [id number] [place] RT PATIENT MEDICARE (WNR) MEDICARE (M) PART B Feb 22, [id number] [facility] [place] RT PATIENT Selected Encounter This section includes the information on record at [place] for the Encounter. Date/Time Encounter Type Encounter Description Reason Pro vider Source May 06, 2024 02:31 PM Outpatient Encounter ADMIN PAT ACTIVTIES (MASNONCT) IHE Encounter Template Text not used by [place] Plan of Treatment: Future Appointments (+ 6 months) and Future Tests (+/- 45 days) The Plan of Treatment section includes future care activities for the patient from all [place] treatmentfacilities. This section includes future appointments and future orders which are active, pending or scheduled. Future Appointments This section includes appointments that were scheduled to occur 6 months from the date of the Encounter, up to a maximum of 20 appointments. The data comes from all [place] treatment facilities. Appointment Date/Time Appointment Type Appointme nt Facility Name Jun 30, 2024 11:00 AM [facility]ULATORY - [facility] [place] [place] Jul 29, 2024 10:15 AM [facility] Social History: Smoking Status (Most current) and Tobacco Use (All prior to encounter date) This section includes the most current, and the historical, smoking and tobacco- related health factors from the [place] facility where the Encounter took place. Current Smoking Status This section includes the most current smoking, or tobacco-related health factor, from the [place] facility where the Encounter took place. Date/Time Current Smoking Status Comment Facil ity Jun 26, 2023 03:20 PM VA-TOBACCO [facility] [place] [facility] Tobacco Use History This section includes a history of the smoking, or tobacco-related health factors, that were collected on or before the date of the Encounter. The data comes from the [place] facility where the Encounter took place. Date/Time Smoking Status/Tobacco Use Comment F acility Jun 26, 2023 03:20 PM VA-TOBACCO QUIT 15 YRS OR MORE [facility] [place] [facility] May 08, 2022 09:20 AM [facility]ACCO [facility] May 08, 2022 09:20 AM VA-TOBACCO QUIT 15 YRS OR MORE [facility] Encounter Notes: All associated encounter notes This section contains the clinical notes associated to the Encounter. Date/Time Encounter Note(s) Provider Source May 06, 2024 02:33 PM ADDENDUM: LOCAL TITLE: Addendum STANDARD TITLE: ADDENDUM DATE OF NOTE: MAY 06, 2024@14:33:29 ENTRY DATE: MAY 06, 2024@14:33:30 AUTHOR: ANI MORENO EXP COSIGNER: URGENCY: STATUS: COMPLETED Patient contacted pharmacy call center again regarding renewal status of: [id number] SIMVASTATIN 80MG TAB *1st request was on 04/24/24* Please review and renew if appropriate. /chastity Moreno CPhT Home Demonstrator, [place]/Pharmacy Customer Care Signed: 05/06/2024 14:34 Receipt Acknowledged By: 05/06/2024 15:10 /farrah/ MAITE CURTIS RN REGISTERED NURSE for SAMMY LOPEZ 05/11/2024 13:08 /farrah/ ARACELI OCHOA MD PRIMARY CARE PHYSICIAN ====== --- Original Document --- 05/06/24 V1 PHARMACY CUSTOMER CARE MEDICATION RENEWAL: Date: Apr Division: [facility] referred by Pharmacy Call Center for medication renewal: Non-controlled/maintenan ce medication Medications requested: [id number] SIMVASTATIN 80MG TAB Defer to primary care provider To be mailed . Please review and renew if appropriate. *This note was generated by [facility]/[place] Pharmacy Customer Care. If you have any questions or need assistance, do not contact this author. Please refer all questions to your local, on-site pharmacy departments. /chastity Moreno CPhT Home Demonstrator, [place]/Pharmacy Customer Care Signed: 05/06/2024 14:32 Receipt Acknowledged By: 05/06/2024 15:10 /farrah/ MAITE CURTIS RN REGISTERED NURSE for SAMMY LOPEZ * AWAITING SIGNATURE * ARACELI OCHOA KATHERINE M [facility] May 06, 2024 02:32 PM PHARMACY NOTE: LOCAL TITLE: V1 PHARMACY CUSTOMER CARE MEDICATION RENEWAL STANDARD TITLE: PHARMACY NOTE DATE OF NOTE: MAY 06, 2024@14:32 ENTRY DATE: MAY 06, 2024@14:32:04 AUTHOR: ANI MORENO EXP COSIGNER: URGENCY: STATUS: COMPLETED V1 PHARMACY CUSTOMER CARE MEDICATION RENEWAL Has ADDENDA Date: Apr Division: [facility] referred by Pharmacy Call Center for medication renewal: Non-controlled/maintenan ce medication Medications requested: [id number] SIMVASTATIN 80MG TAB Defer to primary care provider To be mailed . Please review and renew if appropriate. *This note was generated by [facility] Pharmacy Customer Care. If you have any questions or need assistance, do not contact this author. Please refer all questions to your local, on-site pharmacy departments. /chastity Moreno CPhT Home Demonstrator, [place]/Pharmacy Customer Care Signed: 05/06/2024 14:32 Receipt Acknowledged By: 05/06/2024 15:10 /farrah/ MAITE CURTIS RN REGISTERED NURSE for SAMMY LOPEZ 05/11/2024 13:08 /farrah/ ARACELI OCHOA MD PRIMARY CARE PHYSICIAN 05/06/2024 ADDENDUM STATUS: COMPLETED Patient contacted pharmacy call center again regarding renewal status of: [id number] SIMVASTATIN 80MG TAB *1st request was on 04/24/24* Please review and renew if appropriate. /chastity Moreno CPhT Home Demonstrator, [place]/Pharmacy Customer Care Signed: 05/06/2024 14:34 Receipt Acknowledged By: 05/06/2024 15:10 /farrah/ MAITE CURTIS RN REGISTERED NURSE for SAMMY LOPEZ 05/11/2024 13:08 /chastity OCHOA MD PRIMARY CARE PHYSICIAN ANI MORENO [facility]
--- OUTSIDE RECORDS SUMMARY | 2024-09-12 07:03 | XMS_ITS | Encounter Summary ---
Author Name [facility] [place] [facility] [place] Address [address] [place] [address] Care Team Providers Care Dairy Equipment Mechanic Name Role Phone WESTON ESPITIA Primary Care [...] [facility] 671 Sep 24, 2012 [id number] KAPAA, RT PATIENT BCBS [place] ([place]) PREFERRED PROVIDER ORGANIZAT ION (PPO) TEAMS [facility] 404 Sep 24, 2022 [id number] [phone] KAPAA, RT PATIENT BCBS [place] ([place]) PREFERRED PROVIDER ORGANIZAT ION (PPO) TEAMS [facility] 671 H Mar 24, 2014 [id number] KAPAA, RT PATIENT [facility] PRESCRIPT ION TRI-S BRADLEY TEAMS [facility] Sep 24, 2019 ALRX [id number] GEOFF DE LA FUENTE RT PATIENT [facility] ([id number]) PRESCRIPT ION TEAMS [facility] Mar 24, 2014 TEAMSRX [id number] GEOFF DE LA [place]E RT PATIENT MEDICARE (WNR) MEDICARE (M) PART B Feb 22, 2023 PART B [id number] GEOFF DE LA FUENTE RT PATIENT Selected Encounter This section includes the information on record at [place] for the Encounter. Date/Time Encounter Type Encounter Description Reason Pro vider Source Aug 14, 2024 10:43 AM Outpatient Encounter PRIMARY CARE/MEDICINE IHE Encounter Template Text not used by [place] Plan of Treatment: Future Appointments (+ 6 months) and Future Tests (+/- 45 days) The Plan of Treatment section includes future care activities for the patient from all [place] treatmentfacilities. This section includes future appointments and future orders which are active, pending or scheduled. Future Appointments This section includes appointments that were scheduled to occur 6 months from the date of the Encounter, up to a maximum of 20 appointments. The data comes from all [place] treatment facilities. Appointment Date/Time Appointment Type Appointme nt Facility Name Jan 02, 2025 10:00 AM AMBULATORY - MEDICINE [facility] Social History: Smoking Status (Most current) and Tobacco Use (All prior to encounter date) This section includes the most current, and the historical, smoking and tobacco- related health factors from the [place] facility where the Encounter took place. Current Smoking Status This section includes the most current smoking, or tobacco-related health factor, from the [place] facility where the Encounter took place. Date/Time Current Smoking Status Comment Facil ity Jun 26, 2023 03:20 PM VA-TOBACCO FORMER USER [facility] Tobacco Use History This section includes a history of the smoking, or tobacco-related health factors, that were collected on or before the date of the Encounter. The data comes from the [place] facility where the Encounter took place. Date/Time Smoking Status/Tobacco Use Comment F acility Jun 26, 2023 03:20 PM [place]-TO[place]AC[place] QUIT [facility] YRS [facility] May 08, 2022 09:20 AM [facility] May 08, 2022 09:20 AM [place]-TOBACCO QUIT 15 YRS OR MORE [facility] [place] [facility] Encounter Notes: All associated encounter notes This section contains the clinical notes associated to the Encounter. Date/Time Encounter Note(s) Provider Source Aug 14, 2024 10:44 AM GASTROENTEROLOGY N ONJENNIFER NOTE: LOCAL TITLE: NON-VA COLONOSCOPY/EGD STANDARD TITLE: GASTROENTEROLOGY NONVA NOTE DATE OF NOTE: AUG 14, 2024@10:44 ENTRY DATE: AUG 14, 2024@10:44:50 AUTHOR: SEE BORJA COSIGNER: URGENCY: STATUS: COMPLETED NON-VA COLONOSCOPY/EGD Has ADDENDA == NON VA COLONOSCOPY Report == This data contains relevant information copied & pasted from a NON VA source. Efforts are made to ensure congruency between this note & the original. This note not DOES NOT contain the entirety of the original. Please see [facility] to view the original note/document. COLONOSCOPY - Nov@08:00 [facility], [place], [place] [phone] BERNY BRYAN MD REPEAT: 5 Years IMPRESSION: - One 2 mm polyp in the sigmoid colon, removed with a jumbo cold forceps. Resected and retrieved. - Diverticulosis in the entire examined colon. 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 - The examination was otherwise normal on direct and retroflexion views. RECOMMENDATION: - Patient has a contact number available for emergencies. The signs and symptoms of potential delayed complications were discussed with the patient. Return to normal activities tomorrow. Written discharge instructions were provided to the patient. - Resume previous diet. - Continue present medications. - Await pathology results. - Repeat colonoscopy in 5-10 years for surveillance. Upcoming Appointments: 01/02/2025 10:00 CWM/SO/PACT EIGHT WH SENT TO SCANNING This note is entered for the sole purpose of scanning Non-VA documentation into [employer]. /chastity BORJA LPN Licensed Practical Nurse Signed: 08/14/2024 10:47 08/14/2024 ADDENDUM STATUS: COMPLETED Follow Up Colonoscopy: Colonoscopy is due based on information available to this reminder. Prior/outside Colonoscopy results: Date: December 07, 2023 Average risk screening reminder set 5 years from AUG 14, 2024. /chastity BORJA LPN Licensed Practical Nurse Signed: 08/14/2024 10:48 08/14/2024 ADDENDUM STATUS: COMPLETED This data contains relevant information copied & pasted from a NON [place] source. Efforts are made to ensure congruency between this note & the original. This note not DOES NOT contain the entirety of the original. Please see [employer] to view the original note/document. Nov@08:00 [place], [place] [phone] Impression: A single submucosal papule (nodule) found in the stomach. Biopsied. The examination was otheiwise silvia Recommendation: - Discharge patient to home. - Return to GI clinic as previously scheduled. - Await pathology. - Resume current medications. Upcoming Appointments: 01/02/2025 10:00 CWM/SO/PACT EIGHT WH SENT TO SCANNING /farrah/ SEE BORJA LPN Licensed Practical Nurse Signed: 08/14/2024 10:50 SEE BORJA GARNER
--- OUTSIDE RECORDS SUMMARY | 2024-09-12 07:03 | XMS_ITS | Encounter Summary ---
Author Name [facility] [place] Organization [facility] [place] Address [address] [place] [address] Care Team Providers Care Cad Programmer Name Role Phone WESTON ESPITIA Primary Care [...] Policy Cornejo [employer]ETNA POINT OF SERVICE TEAMS [facility] 671 Sep 24, 2012 [id number] [facility] RT PATIENT BCBS [place] ([place] C[place]) PREFERRED PROVIDER ORGANIZAT ION (PPO) TEAMS [facility] 404 Sep 24, 2022 [id number] [place], RT PATIENT BCBS [place] ([place] CARD) PREFERRED PROVIDER ORGANIZAT ION (PPO) TEAMS [facility] 671 H Mar 24, 2014 [id number] [phone] [place], RT PATIENT [facility] PRESCRIPT ION TRI-S BRADLEY TEAMS [facility] Sep 24, 2019 ALRX [id number] GEOFF DE LA FUENT[place] RT PATIENT [facility] ([id number]) PRESCRIPT ION TEAMS [facility]ERS RX Mar 24, 2014 TEAMSRX [id number] GEOFF DE LA FUENTE RT PATIENT MEDICARE (WNR) MEDICARE (M) PART B Feb 22, 2023 PART B [id number] [facility] GEOFF DE LA FUENTE RT PATIENT Selected Encounter This section includes the information on record at [place] for the Encounter. Date/Time Encounter Type Encounter Description Reason Pro vider Source Jul 01, 2024 01:59 PM Outpatient Encounter ADMIN PAT ACTIVTIES (MASNONCT) [...] 29, 2024 10:15 AM AMBULATORY - NONE [facility] Lab Results: +/- 30 days of the encounter This section includes the Chemistry and Hematology Lab Results on record with [place] for the patient. Radiology Reports and Pathology Reports are provided separately, in subsequent sections. Lab Results This section contains the Chemistry/Hematology Results that were resulted 30 days before or 30 daysafter the date of the Encounter. Date/Time Source Result Type Result - Unit Interpretation Reference Range Comment Jun 23, 2024 07:32 AM [facility] PSA Specimen Type: SERUM No comment entered. Ordering Provider: STERLING EL Report Released Date/Time: Jun 26, 2023 03:38 PM Reporting Lab: [facility] [address] [facility] [address] Performing Lab: [facility] [address] [facility] [address] PSA 3.03 ng/mL 0.00-4.00 Jun 23, 2024 07:32 AM [facility] HEMOGLOBIN A1C PANEL Specimen Type: BLOOD Comment: [...] Jun 26, 2023 03:38 PM Reporting Lab: [address] [address] Performing Lab: [address] [address] HEMOGLOBIN A1C 5.5 4.0-5.6 Jun 23, 2024 07:32 AM [facility] LIPID PANEL FASTING Specimen Type: SERUM No comment entered. Ordering Provider: STERLING EL Report Released Date/Time: Jun 26, 2023 03:38 PM Reporting Lab: [address] [address] Performing Lab: [address] [address] CHOLESTEROL 240 mg/dL H TRIGLYCERIDE 167 mg/dL H 0-150 LDL calculated 158 mg/dL H 0-129 CHOL/HDL 4.9 HDL CHOLESTEROL 49 mg/dL 40-60 Jun 23, 2024 07:32 AM [facility] BASIC METABOLIC PANEL (fasting) Specime n Type: SERUM No comment entered. Ordering Provider: STERLING EL Report Released Date/Time: Jun 26, 2023 03:38 PM Reporting Lab: [address] [address] Performing Lab: [address] [address] UREA NITROGEN 20 mg/dL 7-25 GLUCOSE 104 mg/dL H 65-100 SODIUM 142 mmol/L 135-145 POTASSIUM 4.1 mmol/L 3.5-5.0 CHLORIDE 103 mmol/L 100-110 CO2 27 meq/L 20-30 CREATININE, Serum 1.07 mg/dL 0.50-1.40 eGFR(CKD-EPI 2020) 77 mL/min >60 Jun 23, 2024 07:32 AM [facility] TSH Specimen Type: SERUM No comment entered. Ordering Provider: STERLING EL Report Released Date/Time: Jun 26, 2023 03:38 PM Reporting Lab: [address] [address] Performing Lab: [address] [address] TSH 1.86 u[IU]/mL 0.35-5.00 Jun 23, 2024 07:32 AM [facility] LIVER FUNCTION Specimen Type: SERUM No comment entered. Ordering Provider: STERLING EL Report Released Date/Time: Jun 26, 2023 03:38 PM Reporting Lab: [address] [address] Performing Lab: [address] [address] PROTEIN,TOTAL 7.4 g/dL 6.0-8.3 ALBUMIN 4.4 g/dL 3.5-5.0 ALKALINE PHOSPHATASE 81 U/L 40-150 AST 22 U/L 5-34 ALT 34 U/L BILIRUBIN, TOTAL 0.6 mg/dL 0.2-1.2 Jun 23, 2024 07:32 AM [facility] URINALYSIS Specimen Type: URINE Comment: If Glucose = >500 and Ketones are positive, please alert the Physician. Ordering Provider: STERLING EL Report Released Date/Time: Jun 26, 2023 03:38 PM Reporting Lab: [address] [address] Performing Lab: [address] [address] UA COLOR Light-Yellow Yellow UA APPEARANCE Clear Clear UA GLUCOSE Normal mg/dL Negative UA KETONES NEGATIVE mg/dL Negative UA BLOOD NEGATIVE mg/dL Negative UA PROTEIN NEGATIVE mg/dL Negative UA NITRITE NEGATIVE mg/dL Negative UA BILIRUBIN NEGATIVE mg/dL Negative UA SPECIFIC GRAVITY 1.020 1.016-1.022 UA pH 7.0 5.0-9.0 UA UROBILINOGEN Normal mg/dL <2.0 UA LEUKOCYTE NEGATIVE Negative Jun 23, 2024 07:32 AM [facility] CBC AND DIFF (AUTO) Specimen Type: BLOOD No comment entered. Ordering Provider: STERLING EL Report Released Date/Time: Jun 26, 2023 03:38 PM Reporting Lab: [facility] [address] [facility] [address] Performing Lab: [facility] [address] [facility] [address] WBC 9.91 10*3/uL 4.50-11.00 RBC 5.29 10*6/uL [...] 26, 2023 03:20 PM VA-TOBACCO FORMER USER [facility] Tobacco Use History This section includes a history of the smoking, or tobacco-related health factors, that were collected on or before the date of the Encounter. The data comes from the [place] facility where the Encounter took place. Date/Time Smoking Status/Tobacco Use Comment F acility Jun 26, 2023 03:20 PM VA-TOBACCO QUIT 15 YRS OR MORE [place] [facility] [place] [facility] May 08, 2022 09:20 AM VA-TOBACCO FORMER USER [place] [facility] [place] [facility] May 08, 2022 09:20 AM VA-TOBACCO QUIT 15 YRS OR MORE [facility] Encounter Notes: All associated encounter notes This section contains the clinical notes associated to the Encounter. Date/Time Encounter Note(s) Provider Source Jul 01, 2024 03:52 PM ADDENDUM: LOCAL TITLE: Addendum STANDARD TITLE: ADDENDUM DATE OF NOTE: JUL 01, 2024@15:52:38 ENTRY DATE: JUL 01, 2024@15:52:38 AUTHOR: SEE BORJA EXP COSIGNER: URGENCY: STATUS: COMPLETED Adding PCP to advise /farrah/ SEE BORJA LPN Licensed Practical Nurse Signed: 07/01/2024 15:52 Receipt Acknowledged By: 07/08/2024 14:37 /farrah/ ARACELI OCHOA MD PRIMARY CARE PHYSICIAN === --- Original Document --- 07/01/24 CCC: SCHEDULING ADMINISTRATION: Patient Demographics Patient Name: ANDERSON DE LA FUENTE Patient Primary Phone: [phone] Patient Primary Address: [address] [place] [phone] Patient : 1960 Patient Age: 64 Caller/Recipient Relation to Patient: Self Administrative Administrative Note Reason: Other Administrative Note Comments: Liberty is requesting a call back. Liberty states he used to get echo cardiogram every 5 years and its only been 2 years from last one. Vet would like to know if he can continue with every 5 years. Please call IMPORTANT: This note was created by [facility] Clinical Contact Center staff. Please do not alert the staff member by adding them as a signer for future communications. Alerts are not monitored by this user. /chastity FIELD 1 [facility] Signed: 07/01/2024 13:59 Receipt Acknowledged By: 07/03/2024 13:56 /es/ SARAH LANDRYN RN-BC REGISTERED NURSE 07/01/2024 15:52 /es/ SEE BORJA LPN Licensed Practical Nurse 07/08/2024 ADDENDUM STATUS: UNSIGNED You may not VIEW this UNSIGNED Addendum. SEE BORJA [facility] [place] [facility] Jul 01, 2024 01:59 PM ADMINISTRATIVE NOTE: LOCAL TITLE: CCC: SCHEDULING ADMINISTRATION STANDARD TITLE: ADMINISTRATIVE NOTE DATE OF NOTE: JUL 01, 2024@13:59:30 ENTRY DATE: JUL 01, 2024@13:59:30 AUTHOR: CRUZ HUANG COSIGNER: URGENCY: STATUS: COMPLETED CCC: SCHEDULING ADMINISTRATION Has ADDENDA Patient Demographics Patient Name: ANDERSON DE LA FUENTE Patient Primary Phone: [phone] Patient Primary Address: [address] [place] [phone] Patient : 1960 Patient Age: 64 Caller/Recipient Relation to Patient: Self Administrative Administrative Note Reason: Other Administrative Note Comments: is requesting a call back. Liberty states he used to get echo cardiogram every 5 years and its only been 2 years from last one. Vet would like to know if he can continue with every 5 years. Please call IMPORTANT: This note was created by [facility] Clinical Contact Center staff. Please do not alert the staff member by adding them as a signer for future communications. Alerts are not monitored by this user. /chastity FIELD 1 [facility] Signed: 07/01/2024 13:59 Receipt Acknowledged By: 07/03/2024 13:56 /es/ SARAH LANDRYN RN-BC REGISTERED NURSE 07/01/2024 15:52 /farrah/ SEE BORJA LPN Licensed Practical Nurse 07/01/2024 ADDENDUM STATUS: COMPLETED Adding PCP to advise /farrah/ SEE BORJA LPN Licensed Practical Nurse Signed: 07/01/2024 15:52 Receipt Acknowledged By: 07/08/2024 14:37 /farrah/ ARACELI OCHOA MD PRIMARY CARE PHYSICIAN 07/08/2024 ADDENDUM STATUS: COMPLETED I called the phone number present in the chart and left a voicemail to call our office back for any questions that he has. /farrah/ ARACELI OCHOA MD PRIMARY CARE PHYSICIAN Signed: 07/08/2024 14:38 [facility]
--- OUTSIDE RECORDS SUMMARY | 2024-09-12 07:03 | XMS_ITS | Encounter Summary ---
Author Name [facility] [place] Address [address] [place] [address] Care Team Providers Care Sales Associate Fishing Name Role Phone WESTON ESPITIA Primary Care [...] Policy Cornejo [employer]ETNA POINT OF SERVICE TEAMS [facility] 671 Sep 24, 2012 [id number] [phone] [place], RT PATIENT [place]BS [place] ([place]) PREFERRED PROVIDER ORGANIZAT ION (PPO) TEAMS [facility] 404 Sep 24, 2022 [id number] [place], RT PATIENT BCBS [place] ([place]) PREFERRED PROVIDER ORGANIZAT ION (PPO) TEAMS [facility] 671 H Mar 24, 2014 [id number] [phone] [place], RT PATIENT [facility] PRESCRIPT ION TRI-S BRADLEY TEAMS [facility] Sep 24, 2019 ALRX [id number] GEOFF DE LA FUENTE RT PATIENT [facility] ([id number]) PRESCRIPT ION TEAMS [facility] Mar 24, 2014 TEAMSRX [id number] GEOFF DE LA FUENTE RT PATIENT MEDICARE (WNR) MEDICARE (M) PART B Feb 22, 2023 PART B [id number] GEOFF DE LA FUENTE RT PATIENT Selected Encounter This section includes the information on record at [place] for the Encounter. Date/Time Encounter Type Encounter Description Reason Pro vider Source Jun 30, 2024 12:00 AM Outpatient Encounter EVENT (HISTORICAL) IHE Encounter Template Text not used by [place] Plan of Treatment: Future Appointments (+ 6 months) and Future Tests (+/- 45 days) The Plan of Treatment section includes future care activities for the patient from all [place] treatmentfacilities. This section includes future appointments and future orders which are active, pending or scheduled. Future Appointments This section includes appointments that were scheduled to occur 6 months from the date of the Encounter, up to a maximum of 20 appointments. The data comes from all [place] treatment facilities. Appointment Date/Time Appointment Type Appointme nt Facility Name Jul 29, 2024 10:15 AM AMBULATORY - NONE [facility] Lab Results: +/- 30 days of the encounter This section includes the Chemistry and Hematology Lab Results on record with [place] for the patient. Radiology Reports and Pathology Reports are provided separately, in subsequent sections. Lab Results This section contains the Chemistry/Hematology Results that were resulted 30 days before or 30 daysafter the date of the Encounter. Date/Time Source Result Type Result - Unit Interpretation Reference Range Comment Jun 23, 2024 07:32 AM [facility] PSA Specimen Type: SERUM No comment entered. Ordering Provider: STERLING EL Report Released Date/Time: Jun 26, 2023 03:38 PM Reporting Lab: [facility] [address] [facility] [address] Performing Lab: [facility] [address] [facility] [address] PSA 3.03 ng/mL 0.00-4.00 Jun 23, 2024 07:32 AM [facility] HEMOGLOBIN A1C PANEL Specimen Type: BLOOD Comment: [...] Jun 26, 2023 03:38 PM Reporting Lab: [address] [address] Performing Lab: [address] [address] HEMOGLOBIN A1C 5.5 4.0-5.6 Jun 23, 2024 07:32 AM [facility] LIPID PANEL FASTING Specimen Type: SERUM No comment entered. Ordering Provider: STERLING EL Report Released Date/Time: Jun 26, 2023 03:38 PM Reporting Lab: [address] [address] Performing Lab: [address] [address] CHOLESTEROL 240 mg/dL H TRIGLYCERIDE 167 mg/dL H 0-150 LDL calculated 158 mg/dL H 0-129 CHOL/HDL 4.9 HDL CHOLESTEROL 49 mg/dL 40-60 Jun 23, 2024 07:32 AM [facility] LIVER FUNCTION Specimen Type: SERUM No comment entered. Ordering Provider: STERLING EL Report Released Date/Time: Jun 26, 2023 03:38 PM Reporting Lab: [address] [address] Performing Lab: [address] [address] PROTEIN,TOTAL 7.4 g/dL 6.0-8.3 ALBUMIN 4.4 g/dL 3.5-5.0 ALKALINE PHOSPHATASE 81 U/L 40-150 AST 22 U/L 5-34 ALT 34 U/L BILIRUBIN, TOTAL 0.6 mg/dL 0.2-1.2 Jun 23, 2024 07:32 AM [facility] BASIC METABOLIC PANEL (fasting) Specime n Type: SERUM No comment entered. Ordering Provider: STERLING EL Report Released Date/Time: Jun 26, 2023 03:38 PM Reporting Lab: [address] [address] Performing Lab: [address] [address] UREA NITROGEN 20 mg/dL 7-25 GLUCOSE 104 mg/dL H 65-100 SODIUM 142 mmol/L 135-145 POTASSIUM 4.1 mmol/L 3.5-5.0 CHLORIDE 103 mmol/L 100-110 CO2 27 meq/L 20-30 CREATININE, Serum 1.07 mg/dL 0.50-1.40 eGFR(CKD-EPI 2020) 77 mL/min >60 Jun 23, 2024 07:32 AM [facility] TSH Specimen Type: SERUM No comment entered. Ordering Provider: STERLING EL Report Released Date/Time: Jun 26, 2023 03:38 PM Reporting Lab: [address] [address] Performing Lab: [address] [address] TSH 1.86 u[IU]/mL 0.35-5.00 Jun 23, 2024 07:32 AM [facility] URINALYSIS Specimen Type: URINE Comment: If Glucose = >500 and Ketones are positive, please alert the Physician. Ordering Provider: STERLING EL Report Released Date/Time: Jun 26, 2023 03:38 PM Reporting Lab: [address] [address] Performing Lab: [address] [address] UA COLOR Light-Yellow Yellow UA APPEARANCE Clear Clear UA GLUCOSE Normal mg/dL Negative UA KETONES NEGATIVE mg/dL Negative UA BLOOD NEGATIVE mg/dL Negative UA PROTEIN NEGATIVE mg/dL Negative UA NITRITE NEGATIVE mg/dL Negative UA BILIRUBIN NEGATIVE mg/dL Negative UA SPECIFIC GRAVITY 1.020 1.016-1.022 UA pH 7.0 5.0-9.0 UA UROBILINOGEN Normal mg/dL <2.0 UA LEUKOCYTE NEGATIVE Negative Jun 23, 2024 07:32 AM [facility] CBC AND DIFF (AUTO) Specimen Type: BLOOD No comment entered. Ordering Provider: STERLNIG EL Report Released Date/Time: Jun 26, 2023 03:38 PM [facility] [address] [facility] [address] Performing Lab: [facility] [address] [address] WBC 9.91 10*3/uL 4.50-11.00 RBC 5.29 10*6/uL [...] and tobacco- related health factors from the [place] facility where the Encounter took place. Current Smoking Status This section includes the most current smoking, or tobacco-related health factor, from the [place] facility where the Encounter took place. Date/Time Current Smoking Status Comment Yoel willis Jun 26, 2023 03:20 PM [place]-TOBACCO FORMER USER [place] [facility] [place] [facility] Tobacco Use History This section includes a history of the smoking, or tobacco-related health factors, that were collected on or before the date of the Encounter. The data comes from the [place] facility where the Encounter took place. Date/Time Smoking Status/Tobacco Use Comment F acility Jun 26, 2023 03:20 PM [facility]CO [facility] [place] [facility] May 08, 2022 09:20 AM VA-TOBACCO FORMER USER [place] [facility] [place] [facility] May 08, 2022 09:20 AM [place]-TOBACCO QUIT [address] [facility]
--- OUTSIDE RECORDS SUMMARY | 2024-09-12 07:03 | XMS_ITS | Encounter Summary ---
Author Name Department [place] Organization [place] Address [address] [place] [address] Care Team Providers Care Cracker And Cookie Machine Operator Name Role Phone WESTON ESPITIA Primary Care [...] Policy [place] AETNA POINT OF SERVICE TEAMS [facility] 671 Sep 24, 2012 [id number] [place], RT PATIENT BCBS [place] (BLUE CARD) PREFERRED PROVIDER ORGANIZAT ION (PPO) TEAMS [facility] 404 Sep 24, 2022 [id number] [place], RT PATIENT BCBS [place] (BL[place] CARD) PREFERRED PROVIDER ORGANIZAT ION (PPO) TEAMS [facility] 671 H Mar 24, 2014 [id number] [place], RT PATIENT [facility] PRESCRIPT ION TRI-S BRADLEY TEAMS [facility] Sep 24, 2019 ALRX [id number] GEOFF DE [place] RT PATIENT [facility] ([id number]) PRESCRIPT ION TEAMS [facility] Mar 24, 2014 TEAMSRX [id number] GEOFF DE [place] RT PATIENT MEDICARE (WNR) MEDICARE (M) PART B Feb 22, 2023 PART B [id number] GEOFF DE LA FU[place] RT PATIENT Selected Encounter This section includes the information on record at [place] for the Encounter. Date/Time Encounter Type Encounter Description Reason Pro vider Source Aug 14, 2024 12:00 AM Outpatient Encounter EVENT (HISTORICAL) IHE Encounter Template Text not used by [place] Plan of Treatment: Future Appointments (+ 6 months) and Future Tests (+/- 45 days) The Plan of Treatment section includes future care activities for the patient from all [place] treatmentfacilities. This section includes future appointments and future orders which are active, pending or scheduled. Future Appointments This section includes appointments that were scheduled to occur 6 months from the date of the Encounter, up to a maximum of 20 appointments. The data comes from all [place] treatment facilities. Appointment Date/Time Appointment Type Appointme nt Facility Name Jan 02, 2025 10:00 AM AMBULATORY - MEDICINE [facility] Social History: Smoking Status (Most current) and Tobacco Use (All prior to encounter date) This section includes the most current, and the historical, smoking and tobacco- related health factors from the [place] facility where the Encounter took place. Current Smoking Status This section includes the most current smoking, or tobacco-related health factor, from the [place] facility where the Encounter took place. Date/Time Current Smoking Status Comment Facil ity Jun 26, 2023 03:20 PM VA-TOBACCO FORMER USER [facility] Tobacco Use History This section includes a history of the smoking, or tobacco-related health factors, that were collected on or before the date of the Encounter. The data comes from the [place] facility where the Encounter took place. Date/Time Smoking Status/Tobacco Use Comment F acility Jun 26, 2023 03:20 PM [place]-TOBACCO QUIT 15 YRS OR MORE [facility] [place] [facility] May 08, 2022 09:20 AM [facility] May 08, 2022 09:20 AM [place]-TOBACCO QUIT 15 YRS OR MORE [facility] [place] [facility]
--- OUTSIDE RECORDS SUMMARY | 2024-09-12 07:03 | XMS_ITS | Encounter Summary ---
Author Name [place] Organization [place] Address [address] [place] [address] Care Team Providers Care Clinical Trial Data Manager Name Role Phone WESTON ESPITIA Primary Care [...] Policy [place] AETNA POINT OF SERVICE TEAMS [facility] 671 Sep 24, 2012 [id number] [phone] [facility] RT PATIENT BCBS [place] (BLUE CARD) PREFERRED PROVIDER ORGANIZAT ION (PPO) TEAMS [facility] 404 Sep 24, 2022 [id number] [place], RT PATIENT BCBS [place] (BLUE CARD) PREFERRED PROVIDER ORGANIZAT ION (PPO) TEAMS [facility] 671 H Mar 24, 2014 [id number] [place], RT PATIENT [facility] PRESCRIPT ION TRI-S BRADLEY TEAMS [facility] Sep 24, 2019 ALRX [id number] GEOFF DE [place] RT PATIENT [facility] ([id number]) PRESCRIPT ION TEAMS [facility] Mar 24, 2014 TEAMSRX [id number] GEOFF DE [place] RT PATIENT MEDICARE (WNR) MEDICARE (M) PART B Feb 22, 2023 PART B [id number] [facility] GEOFF DE LA FUENTE RT PATIENT Selected Encounter This section includes the information on record at [place] for the Encounter. Date/Time Encounter Type Encounter Description Reason Pro vider Source Jul 14, 2024 10:44 AM Outpatient Encounter ADMIN PAT ACTIVTIES (MASNONCT) IHE Encounter Template Text not used by [place] Plan of Treatment: Future Appointments (+ 6 months) and Future Tests (+/- 45 days) The Plan of Treatment section includes future care activities for the patient from all [place] treatmentfacilities. This section includes future appointments and future orders which are active, pending or scheduled. Future Appointments This section includes appointments that were scheduled to occur 6 months from the date of the Encounter, up to a maximum of 20 appointments. The data comes from all [place] treatment facilities. Appointment Date/Time Appointment Type Appointme nt Facility Name Jul 29, 2024 10:15 AM AMBULATORY - NONE [facility] Jan 02, 2025 10:00 AM AMBULATORY - MEDICINE [facility] Lab Results: +/- 30 days of the encounter This section includes the Chemistry and Hematology Lab Results on record with [place] for the patient. Radiology Reports and Pathology Reports are provided separately, in subsequent sections. Lab Results This section contains the Chemistry/Hematology Results that were resulted 30 days before or 30 daysafter the date of the Encounter. Date/Time Source Result Type Result - Unit Interpretation Reference Range Comment Jun 23, 2024 07:32 AM [place] PSA Specimen Type: SERUM No comment entered. Ordering Provider: STERLING EL Report Released Date/Time: Jun 26, 2023 03:38 PM Reporting Lab: [address] [address] Performing Lab: [address] [address] PSA 3.03 ng/mL 0.00-4.00 Jun 23, 2024 07:32 AM [place] HEMOGLOBIN A1C PANEL Specimen Type: BLOOD Comment: [...] Jun 26, 2023 03:38 PM Reporting Lab: [address] [phone] Performing Lab: [address] [address] HEMOGLOBIN A1C 5.5 4.0-5.6 Jun 23, 2024 07:32 AM [place] LIPID PANEL FASTING Specimen Type: SERUM No comment entered. Ordering Provider: STERLING EL Report Released Date/Time: Jun 26, 2023 03:38 PM Reporting Lab: [address] [address] Performing Lab: [address] [address] CHOLESTEROL 240 mg/dL H TRIGLYCERIDE 167 mg/dL H 0-150 LDL calculated 158 mg/dL H 0-129 CHOL/HDL 4.9 HDL CHOLESTEROL 49 mg/dL 40-60 Jun 23, 2024 07:32 AM [place] LIVER FUNCTION Specimen Type: SERUM No comment entered. Ordering Provider: STERLING EL Report Released Date/Time: Jun 26, 2023 03:38 PM Reporting Lab: [address] [address] Performing Lab: [address] [address] PROTEIN,TOTAL 7.4 g/dL 6.0-8.3 ALBUMIN 4.4 g/dL 3.5-5.0 ALKALINE PHOSPHATASE 81 U/L 40-150 AST 22 U/L 5-34 ALT 34 U/L BILIRUBIN, TOTAL 0.6 mg/dL 0.2-1.2 Jun 23, 2024 07:32 AM [place] BASIC METABOLIC PANEL (fasting) Specime n Type: SERUM No comment entered. Ordering Provider: STERLING EL Report Released Date/Time: Jun 26, 2023 03:38 PM Reporting Lab: [address] [address] Performing Lab: [address] [address] UREA NITROGEN 20 mg/dL 7-25 GLUCOSE 104 mg/dL H 65-100 SODIUM 142 mmol/L 135-145 POTASSIUM 4.1 mmol/L 3.5-5.0 CHLORIDE 103 mmol/L 100-110 CO2 27 meq/L 20-30 CREATININE, Serum 1.07 mg/dL 0.50-1.40 eGFR(CKD-EPI 2020) 77 mL/min >60 Jun 23, 2024 07:32 AM [place] TSH Specimen Type: SERUM No comment entered. Ordering Provider: STERLING EL Report Released Date/Time: Jun 26, 2023 03:38 PM Reporting Lab: [address] [address] Performing Lab: [address] [address] TSH 1.86 u[IU]/mL 0.35-5.00 Jun 23, 2024 07:32 AM [place] URINALYSIS Specimen Type: URINE Comment: If Glucose = >500 and Ketones are positive, please alert the Physician. Ordering Provider: STERLING EL Report Released Date/Time: Jun 26, 2023 03:38 PM Reporting Lab: [address] [address] Performing Lab: [address] [address] UA COLOR Light-Yellow Yellow UA APPEARANCE Clear Clear UA GLUCOSE Normal mg/dL Negative UA KETONES NEGATIVE mg/dL Negative UA BLOOD NEGATIVE mg/dL Negative UA PROTEIN NEGATIVE mg/dL Negative UA NITRITE NEGATIVE mg/dL Negative UA BILIRUBIN NEGATIVE mg/dL Negative UA SPECIFIC GRAVITY 1.020 1.016-1.022 UA pH 7.0 5.0-9.0 UA UROBILINOGEN Normal mg/dL <2.0 UA LEUKOCYTE NEGATIVE Negative Jun 23, 2024 07:32 AM [place] CBC AND DIFF (AUTO) Specimen Type: BLOOD No comment entered. Ordering Provider: STERLING EL Report Released Date/Time: Jun 26, 2023 03:38 PM Reporting Lab: [facility] [address] [facility] [address] Performing Lab: [facility] [address] [facility] [address] WBC 9.91 10*3/uL 4.50-11.00 RBC 5.29 10*6/uL [...] and tobacco- related health factors from the [place] facility where the Encounter took place. Current Smoking Status This section includes the most current smoking, or tobacco-related health factor, from the [place] facility where the Encounter took place. Date/Time Current Smoking Status Comment Facil ity Jun 26, 2023 03:20 PM VA-TOBACCO FORMER USER [facility] Tobacco Use History This section includes a history of the smoking, or tobacco-related health factors, that were collected on or before the date of the Encounter. The data comes from the [place] facility where the Encounter took place. Date/Time Smoking Status/Tobacco Use Comment F acility Jun 26, 2023 03:20 PM VA-TOBACCO QUIT 15 YRS OR MORE [facility] May 08, 2022 09:20 AM VA-TOBACCO FORMER USER [place] [facility] May 08, 2022 09:20 AM VA-TOBACCO QUIT 15 YRS OR MORE [facility] Encounter Notes: All associated encounter notes This section contains the clinical notes associated to the Encounter. Date/Time Encounter Note(s) Provider Source Jul 16, 2024 04:20 PM ADDENDUM: LOCAL TITLE: Addendum STANDARD TITLE: ADDENDUM DATE OF NOTE: JUL 16, 2024@16:20:22 ENTRY DATE: JUL 16, 2024@16:20:22 AUTHOR: ARACELI OCHOA EXP COSIGNER: URGENCY: STATUS: COMPLETED I think I read the answer to this question but please inform the he should have echocardiography every 2 years based on previous report Thank you /farrah/ ARACELI OCHOA MD PRIMARY CARE PHYSICIAN Signed: 07/16/2024 16:20 Receipt Acknowledged By: 07/29/2024 20:41 /farrah/ JANI LANDRY RN-BC REGISTERED NURSE --- Original Document --- 07/14/24 CCC: SCHEDULING ADMINISTRATION: Patient Demographics Patient Name: ANDERSON DE LA FUENTE Patient Primary Phone: [phone] Patient Primary Address: [address] [place] [id number] Patient : 1960 Patient Age: 64 Call Back Number: Caller/Recipient Relation to Patient: Self Administrative Administrative Note Reason: Other Administrative Note Comments: Pt is calling PCP back regarding echocardiogram. See note 07/01/2024 Pt did schedule the echocardiogram for 07/29/2024 Pt states he will get the echo if his PCP feels it is necessary, but Pt prefers to wait every 5 years IMPORTANT: This note was created by [facility] Clinical Contact Center staff. Please do not alert the staff member by adding them as a signer for future communications. Alerts are not monitored by this user. /farrah/ PAULY FIELD 1 [facility] Signed: 07/14/2024 10:44 Receipt Acknowledged By: 07/29/2024 20:40 /es/ SARAH LANDRYN RN-BC REGISTERED NURSE 07/16/2024 16:20 /es/ ARACELI OCHOA MD PRIMARY CARE PHYSICIAN 07/29/2024 ADDENDUM STATUS: UNSIGNED You may not VIEW this UNSIGNED Addendum. ARACELI OCHOA [place] [facility] [place] [facility] Jul 14, 2024 10:44 AM ADMINISTRATIVE NOTE: LOCAL TITLE: CCC: SCHEDULING ADMINISTRATION STANDARD TITLE: ADMINISTRATIVE NOTE DATE OF NOTE: JUL 14, 2024@10:44:22 ENTRY DATE: JUL 14, 2024@10:44:22 AUTHOR: PAULY NAIR EXP COSIGNER: URGENCY: STATUS: COMPLETED CCC: SCHEDULING ADMINISTRATION Has ADDENDA Patient Demographics Patient Name: ANDERSON DE LA FUENTE Patient Primary Phone: [phone] Patient Primary Address: [address] [place] [id number] Patient : 1960 Patient Age: 64 Call Back Number: Caller/Recipient Relation to Patient: Self Administrative Administrative Note Reason: Other Administrative Note Comments: Pt is calling PCP back regarding echocardiogram. See note 07/01/2024 Pt did schedule the echocardiogram for 07/29/2024 Pt states he will get the echo if his PCP feels it is necessary, but Pt prefers to wait every 5 years IMPORTANT: This note was created by [facility] Clinical Contact Center staff. Please do not alert the staff member by adding them as a signer for future communications. Alerts are not monitored by this user. /farrah/ PAULY FUENTESN 1 [facility] Signed: 07/14/2024 10:44 Receipt Acknowledged By: 07/29/2024 20:40 /JANI Adam RN-BC REGISTERED NURSE 07/16/2024 16:20 /chastity OCHOA MD PRIMARY CARE PHYSICIAN 07/16/2024 ADDENDUM STATUS: COMPLETED I think I read the answer to this question but please inform the [place] he should have echocardiography every 2 years based on previous report Thank you /chastity OCHOA MD PRIMARY CARE PHYSICIAN Signed: 07/16/2024 16:20 Receipt Acknowledged By: 07/29/2024 20:41 /JANI Adam RN-BC REGISTERED NURSE 07/29/2024 ADDENDUM STATUS: COMPLETED had echocardiogram performed today and results are pending. /JANI Adam RN-BC REGISTERED NURSE Signed: 07/29/2024 20:42 PAULY NAIR [place] [facility]
--- OUTSIDE RECORDS SUMMARY | 2024-09-12 07:03 | XMS_ITS | Encounter Summary ---
Author Name [place] Address [address] [place] [address] Care Team Providers Care Fire Dispatcher Name Role Phone WESTON ESPITIA Primary Care [...] Policy [place] AETNA POINT OF SERVICE TEAMS [facility] 671 Sep 24, 2012 [id number] [facility] RT PATIENT BCBS [place] (BLUE CARD) PREFERRED PROVIDER ORGANIZAT ION (PPO) TEAMS [facility] 404 Sep 24, 2022 [id number] [phone] [place], RT PATIENT BCBS [place] (BLUE CARD) PREFERRED PROVIDER ORGANIZAT ION (PPO) TEAMS [facility] 671 H Mar 24, 2014 [id number] [place], RT PATIENT [facility] PRESCRIPT ION TRI-S BRAD[place] TEAMS [facility] Sep 24, 2019 ALRX [id number] GEOFF DE [place] RT PATIENT [facility] ([id number]) PRESCRIPT ION TEAMS [facility] Mar 24, 2014 TEAMSRX [id number] GEOFF DE [place] RT PATIENT MEDICARE (WNR) MEDICARE (M) PART B Feb 22, 2023 PART B [id number] [facility] [phone] [place] RT PATIENT Selected Encounter This section includes the information on record at [place] for the Encounter. Date/Time Encounter Type Encounter Description Reason Pro vider Source Aug 11, 2024 04:21 PM Outpatient Encounter ADMIN PAT ACTIVTIES (MASNONCT) IHE Encounter Template Text not used by [place] Plan of Treatment: Future Appointments (+ 6 months) and Future Tests (+/- 45 days) The Plan of Treatment section includes future care activities for the patient from all [place] treatmentfacilities. This section includes future appointments and future orders which are active, pending or scheduled. Future Appointments This section includes appointments that were scheduled to occur 6 months from the date of the Encounter, up to a maximum of 20 appointments. The data comes from all [place] treatment facilities. Appointment Date/Time Appointment Type Appointme nt Facility Name Jan 02, 2025 10:00 AM [facility] Social History: Smoking Status (Most current) and Tobacco Use (All prior to encounter date) This section includes the most current, and the historical, smoking and tobacco- related health factors from the [place] facility where the Encounter took place. Current Smoking Status This section includes the most current smoking, or tobacco-related health factor, from the [place] facility where the Encounter took place. Date/Time Current Smoking Status Comment Facil ity Jun 26, 2023 03:20 PM VA-TOBACCO FORMER USER [facility] Tobacco Use History This section includes a history of the smoking, or tobacco-related health factors, that were collected on or before the date of the Encounter. The data comes from the [place] facility where the Encounter took place. Date/Time Smoking Status/Tobacco Use Comment F acility Jun 26, 2023 03:20 PM [place]-TOBACCO QUIT 15 YRS OR MORE [facility] May 08, 2022 09:20 AM [facility]-TOBACCO FOR[facility] May 08, 2022 09:20 AM [place]-TOBACCO QUIT 15 YRS OR MORE [facility] Encounter Notes: All associated encounter notes This section contains the clinical notes associated to the Encounter. Date/Time Encounter Note(s) Provider Source Aug 11, 2024 04:21 PM PHARMACY NOTE: LOCAL TITLE: V1 PHARMACY CUSTOMER CARE MEDICATION RENEWAL STANDARD TITLE: PHARMACY NOTE DATE OF NOTE: AUG 11, 2024@16:21 ENTRY DATE: AUG 11, 2024@16:21:54 AUTHOR: DYLAN RUDOLPH EXP COSIGNER: URGENCY: STATUS: COMPLETED Date: Jul Division: [facility] referred by Pharmacy Call Center for medication renewal: Non-controlled/maintenan ce medication Medications requested: [id number] SILDENAFIL CITRATE 100MG TAB Defer to primary care provider To be mailed . Please review and renew if appropriate. *This note was generated by [facility]/[place] Pharmacy Customer Care. If you have any questions or need assistance, do not contact this author. Please refer all questions to your local, on-site pharmacy departments. /farrah/ DYLAN RUDOLPH [facility] Artist Manager, [place]/Pharmacy Customer Care Signed: 08/11/2024 16:22 Receipt Acknowledged By: 08/11/2024 16:28 /farrah/ SARAH LANDRYN RN-BC REGISTERED NURSE 08/11/2024 17:52 /farrah/ WESTON ESPITIA APRN-C CERTIFIED NURSE PRACTITIONER DYLAN RUDOLPH [facility]
--- OUTSIDE RECORDS SUMMARY | 2024-09-12 07:03 | XMS_ITS | Encounter Summary ---
Author Name Department of [place] Organization [place] Address [address] [place] [address] Care Team Providers Care Vp Director Of Finance Name Role Phone WESTON ESPITIA Primary Care [...] Policy [place] AETNA POINT OF SERVICE TEAMS [facility] 671 Sep 24, 2012 [id number] [phone] [place], RT PATIENT BCBS [place] (BLUE CARD) PREFERRED PROVIDER ORGANIZAT ION (PPO) TEAMS [facility] 404 Sep 24, 2022 [id number] [phone] [place], RT PATIENT BCBS [place] (BLUE CARD) PREFERRED PROVIDER ORGANIZAT ION (PPO) TEAMS [facility] 671 H Mar 24, 2014 [id number] [place], RT PATIENT [facility] PRESCRIPT ION TRI-S BRAD[place] TEAMS [facility] Sep 24, 2019 ALRX [id number] [phone] GEOFF [place] RT PATIENT [facility] ([id number]) PRESCRIPT ION TEAMS [facility] Mar 24, 2014 TEAMSRX TLPCT00 [id number] GEOFF DE LA [place] RT PATIENT MEDICARE (WNR) MEDICARE (M) PART B Feb 22, 2023 PART B [id number] GEOFF DE [place] RT PATIENT Selected Encounter This section includes the information on record at [place] for the Encounter. Date/Time Encounter Type Encounter Description Reason Pro vider Source Dec 07, 2023 12:00 AM Outpatient Encounter EVENT (HISTORICAL) IHE Encounter Template Text not used by [place] Social History: Smoking Status (Most current) and Tobacco Use (All prior to encounter date) This section includes the most current, and the historical, smoking and tobacco- related health factors from the [place] facility where the Encounter took place. Current Smoking Status This section includes the most current smoking, or tobacco-related health factor, from the [place] facility where the Encounter took place. Date/Time Current Smoking Status Comment Facil ity Jun 26, 2023 03:20 PM [place]-TOBACCO FORMER USER [facility] Tobacco Use History This section includes a history of the smoking, or tobacco-related health factors, that were collected on or before the date of the Encounter. The data comes from the [place] facility where the Encounter took place. Date/Time Smoking Status/Tobacco Use Comment F acility Jun 26, 2023 03:20 PM [place]-TOBACCO QUIT 15 YRS OR MORE [facility] May 08, 2022 09:20 AM [facility] May 08, 2022 09:20 AM [place]-TOBACCO QUIT 15 YRS OR MORE [facility] Encounter Notes: All associated encounter notes This section contains the clinical notes associated to the Encounter. Date/Time Encounter Note(s) Provider Source Dec 07, 2023 12:00 AM GASTROENTEROLOGY NONVA NOTE: LOCAL TITLE: NON-VA COLONOSCOPY/EGD STANDARD TITLE: GASTROENTEROLOGY NONVA NOTE DATE OF NOTE: DEC 07, 2023 ENTRY DATE: SEP 11, 2024@11:25:50 AUTHOR: GEOVANNA PRITCHARD EXP COSIGNER: URGENCY: STATUS: COMPLETED VistA Imaging - Scanned Document SCANNED DOCUMENT SIGNATURE NOT REQUIRED Electronically Filed: 09/11/2024 by: GEOVANNA BARRAGAN CN[facility]L [facility]
--- OUTSIDE RECORDS SUMMARY | 2024-09-12 07:03 | XMS_ITS ---
Author Name [facility] [place] [facility] [place] [facility] [place] Address [address] [place] [address] Care Team Providers Care Pot Tender Name Role Phone WESTON ESPITIA Primary Care [...] Policy Corne[place] [employer] POINT OF SERVICE TEAMS [facility] 671 Sep 24, 2012 [id number] [phone] [place], RT PATIENT BCBS [place] (BLUE CARD) PREFERRED PROVIDER ORGANIZAT ION (PPO) TEAMS [facility] 404 Sep 24, 2022 [id number] [place], RT PATIENT BCBS [place] ([place]) PREFERRED PROVIDER ORGANIZAT ION (PPO) TEAMS [facility] [id number] H Mar 24, 2014 [id number] [phone] [place], RT PATIENT [facility] PRESCRIPT ION TRI-S [place] TEAMS [facility] Sep 24, 2019 ALRX [id number] GEOFF [place] RT PATIENT [facility] ([id number]) PRESCRIPT ION TEAMS [facility] Mar 24, 2014 TEAMSRX [id number] GEOFF DE [place] RT PATIENT MEDICARE (WNR) MEDICARE (M) PART B Feb 22, 2023 PART B [id number] GEOFF DE LA FUENTE PATIENT Selected Encounter This section includes the information on record at [place] for the Encounter. Date/Time Encounter Type Encounter Description Reason Pro vider Source Jul 03, 2024 01:39 PM Outpatient Encounter CARDIAC ECHO IHE Encounter Template Text not used by [place] Plan of Treatment: Future Appointments (+ 6 months) and Future Tests (+/- 45 days) The Plan of Treatment section includes future care activities for the patient from all [place] treatmentfacilities. This section includes future appointments and future orders which are active, pending or scheduled. Future Appointments This section includes appointments that were scheduled to occur 6 months from the date of the Encounter, up to a maximum of 20 appointments. The data comes from all [place] treatment facilities. Appointment Date/Time Appointment Type Appointme nt Facility Name Jul 29, 2024 10:15 AM AMBULATORY - NONE [facility] Lab Results: +/- 30 days of the encounter This section includes the Chemistry and Hematology Lab Results on record with [place] for the patient. Radiology Reports and Pathology Reports are provided separately, in subsequent sections. Lab Results This section contains the Chemistry/Hematology Results that were resulted 30 days before or 30 daysafter the date of the Encounter. Date/Time Source Result Type Result - Unit Interpretation Reference Range Comment Jun 23, 2024 07:32 AM [place] PSA Specimen Type: SERUM No comment entered. Ordering Provider: STERLING EL Report Released Date/Time: Jun 26, 2023 03:38 PM Reporting Lab: [facility] [address] [facility] [address] Performing Lab: [facility] [address] [facility] [address] PSA 3.03 ng/mL 0.00-4.00 Jun 23, 2024 07:32 AM [place] HEMOGLOBIN A1C PANEL Specimen Type: BLOOD Comment: [...] Jun 26, 2023 03:38 PM Reporting Lab: [address] [address] Performing Lab: [address] [address] HEMOGLOBIN A1C 5.5 4.0-5.6 Jun 23, 2024 07:32 AM [place] LIPID PANEL FASTING Specimen Type: SERUM No comment entered. Ordering Provider: STERLING EL Report Released Date/Time: Jun 26, 2023 03:38 PM Reporting Lab: [address] [address] Performing Lab: [address] [address] CHOLESTEROL 240 mg/dL H TRIGLYCERIDE 167 mg/dL H 0-150 LDL calculated 158 mg/dL H 0-129 CHOL/HDL 4.9 HDL CHOLESTEROL 49 mg/dL 40-60 Jun 23, 2024 07:32 AM [place] LIVER FUNCTION Specimen Type: SERUM No comment entered. Ordering Provider: STERLING EL Report Released Date/Time: Jun 26, 2023 03:38 PM Reporting Lab: [address] [address] Performing Lab: [address] [address] PROTEIN,TOTAL 7.4 g/dL 6.0-8.3 ALBUMIN 4.4 g/dL 3.5-5.0 ALKALINE PHOSPHATASE 81 U/L 40-150 AST 22 U/L 5-34 ALT 34 U/L BILIRUBIN, TOTAL 0.6 mg/dL 0.2-1.2 Jun 23, 2024 07:32 AM [place] BASIC METABOLIC PANEL (fasting) Specime n Type: SERUM No comment entered. Ordering Provider: STERLING EL Report Released Date/Time: Jun 26, 2023 03:38 PM Reporting Lab: [address] [address] Performing Lab: [address] [address] [facility]A NITROGEN 20 mg/dL 7-25 GLUCOSE 104 mg/dL H 65-100 SODIUM 142 mmol/L 135-145 POTASSIUM 4.1 mmol/L 3.5-5.0 CHLORIDE 103 mmol/L 100-110 CO2 27 meq/L 20-30 CREATININE, Serum 1.07 mg/dL 0.50-1.40 eGFR(CKD-EPI 2020) 77 mL/min >60 Jun 23, 2024 07:32 AM [place] TSH Specimen Type: SERUM No comment entered. Ordering Provider: STERLING EL Report Released Date/Time: Jun 26, 2023 03:38 PM Reporting Lab: [address] [address] Performing Lab: [address] [address] TSH 1.86 u[IU]/mL 0.35-5.00 Jun 23, 2024 07:32 AM [facility] URINALYSIS Specimen Type: URINE Comment: If Glucose = >500 and Ketones are positive, please alert the Physician. Ordering Provider: STERLING EL Report Released Date/Time: Jun 26, 2023 03:38 PM Reporting Lab: [address] [address] Performing Lab: [address] [address] UA COLOR Light-Yellow Yellow UA APPEARANCE Clear Clear UA GLUCOSE Normal mg/dL Negative UA KETONES NEGATIVE mg/dL Negative UA BLOOD NEGATIVE mg/dL Negative UA PROTEIN NEGATIVE mg/dL Negative UA NITRITE NEGATIVE mg/dL Negative UA BILIRUBIN NEGATIVE mg/dL Negative UA SPECIFIC GRAVITY 1.020 1.016-1.022 UA pH 7.0 5.0-9.0 UA UROBILINOGEN Normal mg/dL <2.0 UA LEUKOCYTE NEGATIVE Negative Jun 23, 2024 07:32 AM [place] CBC AND DIFF (AUTO) Specimen Type: BLOOD No comment entered. Ordering Provider: STERLING EL Report Released Date/Time: Jun 26, 2023 03:38 PM Reporting Lab: [facility] [address] [facility] [address] Performing Lab: [facility] [address] [facility] [address] WBC 9.91 10*3/uL 4.50-11.00 RBC 5.29 10*6/uL [...] and tobacco- related health factors from the [place] facility where the Encounter took place. Current Smoking Status This section includes the most current smoking, or tobacco-related health factor, from the [place] facility where the Encounter took place. Date/Time Current Smoking Status Comment Yoel willis Jun 26, 2023 03:20 PM [facility] Tobacco Use History This section includes a history of the smoking, or tobacco-related health factors, that were collected on or before the date of the Encounter. The data comes from the [place] facility where the Encounter took place. Date/Time Smoking Status/Tobacco Use Comment F acility Jun 26, 2023 03:20 PM VA-TOBACCO QUIT 15 YRS OR MORE [facility] May 08, 2022 09:20 AM [facility] [place] [facility] May 08, 2022 09:20 AM VA-TOBACCO QUIT 15 YRS OR MORE [facility] Encounter Notes: All associated encounter notes This section contains the clinical notes associated to the Encounter. Date/Time Encounter Note(s) Provider Source Jul 03, 2024 01:39 PM LETTERS: LOCAL TITLE: PATIENT LETTER (B) STANDARD TITLE: LETTERS DATE OF NOTE: JUL 03, 2024@13:39 ENTRY DATE: JUL 03, 2024@13:39:14 AUTHOR: BRANDON HERCULES EXP COSIGNER: URGENCY: STATUS: COMPLETED JUL 03, 2024 AND[place] F[place] [address], [place] [address] Dear ANDERSON DE LA FUENTE We would like to assist you in scheduling a ECHOCARDIOGRAM appointment at the [place]. We have been unable to reach you by phone. To schedule this appointment please call toll free Ext [phone]. Our booking appointment hours are Sunday through Sunday from 8:00 am to 4:00 pm. Please leave a message if you receive voicemail and let us know a good time and telephone number where we can reach you. If we dont hear back from you within 14 days from the date of this letter we will discontinue the request. If you have already scheduled this appointment, please disregard this letter. Your health is important to us. Sincerely, [facility] [address] [facility] [address] [place] [address] [place] [address] ext. [phone] [facility] [address] [address] [place] [address] [phone] [facility] [address] [address] [place] [address] [phone] [address] ext. [phone] BRANDON HERCULES [facility]
--- OUTSIDE RECORDS SUMMARY | 2024-09-12 07:03 | XMS_ITS | Encounter Summary ---
Author Name [facility] [place] [facility] [place] Address [address] [place] [address] Care Team Providers Care Bridge Inspector Name Role Phone WESTON ESPITIA Primary [...] Policy Cornejo AETNA POINT OF SERVICE TEAMS [facility] 671 Sep 24, 2012 [id number] [phone] [facility] RT PATIENT BCBS [place] ([place]) PREFERRED PROVIDER ORGANIZAT ION (PPO) TEAMS [facility] 404 Sep 24, 2022 [id number] [place], RT PATIENT BCBS [place] ([place]) PREFERRED PROVIDER ORGANIZAT ION (PPO) TEAMS [facility] 671 H Mar 24, 2014 [id number] [phone] [place], RT PATIENT [facility] PRESCRIPT ION TRI-S [place] TEAMS [facility] Sep 24, 2019 ALRX [id number] GEOFF DE [place] RT PATIENT [facility] ([id number]) PRESCRIPT ION TEAMS [facility] Mar 24, 2014 TEAMSRX [id number] GEOFF [place] PATIENT MEDICARE (WNR) MEDICARE (M) PART B Feb 22, 2023 PART B [id number] GEOFF [place] PATIENT Selected Encounter This section includes the information on record at [place] for the Encounter. Date/Time Encounter Type Encounter Description Reason Provider Source Jul 29, 2024 10:15 AM TTE W/DOPPLER COMPLETE CARDIAC ECHO ICD-10-CM I71.20 Thoracic aortic aneurysm, without rupture, unspecified MARIA LUISA SAWYER IHLuis Encounter Template Text not used by [place] Assessments - Encounter Diagnoses This section includes the primary and secondary diagnoses documented for the Encounter. Date/Time Primary/Secondary Diagnosis Diagnosis Name Provider Source Aug 18, 2024 07:54 AM PRIMARY Thoracic aortic aneurysm, without rupture, unspecified GLEN SAWYER JULIENNE Plan of Treatment: Future Appointments (+ 6 months) and Future Tests (+/- 45 days) The Plan of Treatment section includes future care activities for the patient from all [place] treatmentfacilities. This section includes future appointments and future orders which are active, pending or scheduled. Future Appointments This section includes appointments that were scheduled to occur 6 months from the date of the Encounter, up to a maximum of 20 appointments. The data comes from all [place] treatment facilities. Appointment Date/Time Appointment Type Appointme nt Facility Name Jan 02, 2025 10:00 AM AMBULATORY - MEDICINE [facility] Social History: Smoking Status (Most current) and Tobacco Use (All prior to encounter date) This section includes the most current, and the historical, smoking and tobacco- related health factors from the [place] facility where the Encounter took place. Current Smoking Status This section includes the most current smoking, or tobacco-related health factor, from the [place] facility where the Encounter took place. Date/Time Current Smoking Status Comment Facil ity Jun 30, 2024 11:00 AM [place]-TOBACCO FORMER USER [place] Tobacco Use History This section includes a history of the smoking, or tobacco-related health factors, that were collected on or before the date of the Encounter. The data comes from the [place] facility where the Encounter took place. Date/Time Smoking Status/Tobacco Use Comment F acility Jun 30, 2024 11:00 AM VA-TOBACCO QUIT 15 YRS OR MORE [place] Aug 30, 2020 11:30 AM VA-TOBACCO FORMER USER [place] Aug 30, 2020 11:30 AM VA-TOBACCO QUIT 15 YRS OR MORE [place] Jul 24, 2018 03:30 PM VA-TOBACCO FORMER USER [place] Jul 24, 2018 03:30 PM VA-TOBACCO QUIT 15 YRS OR MORE [place] Aug 20, 2017 11:26 AM QUIT TOBACCO USE > 7 YEARS AGO quit 1996 [place] Jul 31, 2016 10:33 AM QUIT TOBACCO USE > 7 YEARS AGO quit 1995 [place] Sep 22, 2005 09:27 AM LIFETIME NON-SMOKER [place] Nov 25, 2003 09:52 AM HISTORY OF SMOKING quit smoking 10 yrs hx of 1ppd x 20 yr [place] Jan 05, 2003 03:18 PM QUIT TOBACCO USE > 7 YEARS AGO stopped tobacco 8 years ago [place] Jul 11, 2002 11:20 AM HISTORY OF SMOKING quit 8-9 years ago [place] Sep 06, 2001 10:25 AM NON-TOBACCO USER [facility] May 09, 2001 07:57 AM HISTORY OF SMOKING Stopped cigaretts 8 years ago [place] Encounter Notes: All associated encounter notes This section contains the clinical notes associated to the Encounter. Date/Time Encounter Note(s) Provider Source Jul 29, 2024 05:04 PM CARDIOLOGY PROCEDU RE NOTE: LOCAL TITLE: CARDIOLOGY ECHO STANDARD TITLE: CARDIOLOGY PROCEDURE NOTE DATE OF NOTE: JUL 29, 2024@17:04:40 ENTRY DATE: JUL 29, 2024@17:04:40 AUTHOR: CLINICAL,DEVICE PRO EXP COSIGNER: URGENCY: STATUS: COMPLETED PROCEDURE SUMMARY CODE: Machine Resulted DATE/TIME PERFORMED: JUL 29, 2024@10:44:3 DOCUMENT IN VISTA IMAGING SEE FULL REPORT IN VISTA IMAGING SIGNATURE NOT REQUIRED SEE SIGNATURE IN VISTA IMAGING (XCELERA (ADULT)) AUTO-INSTRUMENT DIAGNOSIS Procedure: Interop Interop Release Status: Released Off-Line Verified Date Verified: Jul 29, 2024@17:02:58 Administrative Closure: 07/29/2024 by: Clinical,Device Proxy Service CLINICAL,DEVICE PROXY SERVICE [place] Jul 29, 2024 05:04 PM CARDIOLOGY PROCEDU RE NOTE: LOCAL TITLE: CP CARDIOLOGY ECHO STANDARD TITLE: CARDIOLOGY PROCEDURE NOTE DATE OF NOTE: JUL 29, 2024@17:04:33 ENTRY DATE: JUL 29, 2024@17:04:33 AUTHOR: CLINICAL,DEVICE PRO EXP COSIGNER: URGENCY: STATUS: COMPLETED PROCEDURE SUMMARY CODE: Machine Resulted DATE/TIME PERFORMED: JUL 29, 2024@10:44:3 DOCUMENT IN VISTA IMAGING SEE FULL REPORT IN VISTA IMAGING SIGNATURE NOT REQUIRED SEE SIGNATURE IN VISTA IMAGING (XCELERA (ADULT)) AUTO-INSTRUMENT DIAGNOSIS Procedure: Interop Interop Release Status: Released Off-Line Verified Date Verified: Jul 29, 2024@17:02:58 Administrative Closure: 07/29/2024 by: Clinical,Device Proxy Service CLINICAL,DEVICE PROXY SERVICE [place] Jul 29, 2024 10:12 AM CARDIOLOGY DIAGNOS TIC STUDY NOTE: LOCAL TITLE: ECHOCARDIOGRAM REPORT STANDARD TITLE: CARDIOLOGY DIAGNOSTIC STUDY NOTE DATE OF NOTE: JUL 29, 2024@10:12 ENTRY DATE: JUL 29, 2024@10:12:45 AUTHOR: MESERET SAWYER EXP COSIGNER: URGENCY: STATUS: COMPLETED DATE ECHOCARDIOGRAM PERFOMED: Jul ECHOCARDIOLOGY MULTIPLE DRUM SANDER HELPER: SARAH Wade RCS Procedure was performed without incident. The Study transmitted to [facility] via [employer] system for interpretation by claim taker. When interpretation is complete, results can be found under [employer]. /farrah/ JOSEPH RODRÍGUEZ Signed: 07/29/2024 10:13 MESERET SAWYER
[2024-09-12 08:34] LABS: HIV AB/AG Nonreactive (Nonreactive); HIV Num 1 0.05 S/CO (0.00-0.99)
== END 2024-09-12 06:57 | disposition home or self-care (01) ==
LOC: HO.LAB 06:56
PROVIDERS: PCP Internal Medicine Medical Oncology; Visit Provider Internal Medicine Medical Oncology
DX: Z20.6 Contact with and (suspected) exposure to human immunodeficiency virus [HIV] (principal)
CPT/HCPCS: 36415; 87389

== ENCOUNTER 2025-09-14 07:14 | Outpatient (REF) | payer MEDICARE, OTHER, SELFPAY ==
--- OUTSIDE RECORDS SUMMARY | 2024-12-04 06:45 | XMS_ITS ---
Author Organization Ramon Duenas III, MD Address [address] [place] [address] [place] [address] Care Team Providers Care Analysis Mgr Name Role Phone Dr. Ramon Duenas III Primary Care Provider [phone] Medications Medication SIG (Take, Route, Fr equency, Duration) Notes Start Date End Date Status Simvastatin 40 MG 1 tablet in the even ing Orally Once a day for 30 days 12/04/2024 Active Social History Sex Assigned At : Social History Observation Description Sex Assigned At Male Encounters Encounter Location Date Provider Diagnosis Ramon Duenas III, MD [address] [place] [address] [place] [address] 12/04/2024 Ramon Duenas Plan Of Treatment Medication Medication Name Sig Start Date Stop Date Notes Simvastatin 40 MG 1 tablet in the even ing Orally Once a day for 30 days 12/04/2024 Next Appt Details Provider Name:Ramon Duenas , 09/21/2025 11:00:00 AM, [address] [place] [address] [place], [address], Progress Notes * Kenny DE LA FUENTEDOB:1960 ( 64 yo M)Acc No.[id number]:12/04/2024 Patient: Kenny ARROYO :1960 A ge:64 Y S ex:Male Address:[address] [place] [address], * Refills Start Simvastatin Tablet, 40 MG, Orally, 30, 1 tablet in the evening, Once a day, 30 days, Refills=5 * true * Date: Generated for Memei ng/Faparkerg/eTransmitting on: 1 11/15/2024 07:21 AM EST
--- OUTSIDE RECORDS SUMMARY | 2025-01-14 05:30 | XMS_ITS ---
Author Organization Ramon Duenas III, MD Address [address] [place] [address] Care Team Providers Care [employer] Name Role Phone Dr. Ramon Duenas III Primary Care Provider Allergies Allergen (clinical drug ingredient) Drug/Non Drug Allergy documented on EMR Reaction Allergy Type Onset Date Status Grass Pollen Standardized Ext Unknown Drug Allergy Active Mold Unknown Allergy Active Dust Mites Unknown Allergy Active Latex Latex Unknown Allergy Active Neosporin Unknown Drug Allergy Active REASON FOR VISIT Elevated PSA, Benign prostatic hypertrophy, Asthma, Hyperlipidemia, Hypertension, GERD Medications Medication SIG (Take, Route, Frequency, Duration) Notes Start Date End Date Status Loratadine 10 MG Oral Act jared Flonase Allergy Relief 50 MCG/ACT 1 spray in each nostril Nasally Twice a day Active Atorvastatin Calcium 80 MG 1 tablet Oral ly Once a day 01/16/2025 Active Multi Vitamin - 1 tablet Orally Once a day Active Simvastatin 40 MG 1 tablet in the evening Orally Once a day Active Aspirin Adult Low Dose 81 MG 1 tablet Or ally Once a day Active Omeprazole 20 MG 1 tablet 30 minutes before morning meal Orally Once a day 09/08/2019 Active Finasteride 5 MG 1 tablet Orally Once a day Active Fish Oil 1000 MG 2 capsule Orally Onc e a day Active Viagra 100 MG 1 tablet as needed Orally Once a day as needed Active hydroCHLOROthiazide 12.5 MG TAKE 1 TABLE T Orally Once a day Active Irbesartan 300 MG TAKE 1 TABLET BY MOUTH DAILY Orally Once a day Active Simvastatin 40 MG 1 tablet in the evening Orally Once a day 12/04/2024 Active Social History Tobacco Use: Social History Observation Description Date Details (start date - stop date) Former Smoker NA - NA Sex Assigned At : Social History Observation Description Sex Assigned At Male Tobacco Control (Standard) Question Answer Notes Tobacco use: Former smoker How long has it been since you last smoked? Lit ter than 10 years Additional Findings: Tobacco non-user Ex-cigaret te smoker Vital Signs Temperature 97.3 degrees Fahrenheit 01/15/20 25 Blood pressure systolic 134 mm Hg 01/15/20 25 Blood pressure diastolic 79 mm Hg 025 Heart Rate 83 /min 01/14/2025 Height 73 in 01/14/2025 Weight 219 lbs 01/14/2025 BMI 28.89 kg/m2 01/14/2025 Encounters Encounter Location Date Provider Diagnosis Ramon Duenas III, MD [address] [place] [address] [place], [place] [id number] 01/14/2025 Ramon Duenas Benign prostatic hyperplasia without lower urinary tract symptoms N40.0 ; Genital warts A63.0 ; Mixed hyperlipidemia E78.2 ; GERD without esophagitis K21.9 ; Essential hypertension I10 ; Former smoker Z87.891 and Overweight E66.3 Assessments Encounter Date Diagnosis (ICD Code) Assessment Notes Treat ment Notes Treatment Clinical Notes 01/14/2025 Benign prostatic hyperplasia without lower urinary tract symptoms (ICD-10 - N40.0) His nocturia has diminished since he began to employ lifestyle modification. 01/14/2025 Genital warts (ICD-1 0 - A63.0) He has not had a recurrence since his initial treatment.He is up-to-date with his visits to urology 01/14/2025 Mixed hyperlipidemia (ICD-10 - E78.2) His lipids are currently stable with a total cholesterol 219. His triglycerides are 144. I recommend aggressive weight loss and a diet restrricted in calories and sodium combined with regular physical activity.He will continue on the 80 mg dose of atorvastatin. 01/14/2025 GERD without esophagitis (ICD-10 - K21.9) He is going to take omeprazole 20 mg daily and uses a liquid antacid such as Maalox or Mylanta for breakthrough heartburn. 01/14/2025 Essential hypertension (ICD-10 - I10) His blood pressure is currently stable at 136/80. No change in his regimen was necessary. I recommended weight reduction and sodium restriction. Although the systolic is slightly elevated he did not wish more medication. We reviewed the use of sodium restriction weight reduction is no activity in lowering blood pressure. 01/14/2025 Former smoker (ICD-1 0 - Z87.891) He has a plan in place to prevent relapse in times of stress and illness. 01/14/2025 Overweight (ICD-10 - E66.3) His weight is 219 which is stable and his body mass index is 28.9We discussed his diet and his nutrition. We made a plan to lose weight at a rate of one half of a pound per week through a diet restricted in calories. I recommended regular physical activity as well. Plan Of Treatment Medication Medication Name Sig Start Date Stop Date Notes Loratadine 10 MG Oral Flonase Allergy Relief 50 MCG/ACT 1 spra y in each nostril Nasally Twice a day Atorvastatin Calcium 80 MG 1 tablet Oral ly Once a day 01/16/2025 Multi Vitamin - 1 tablet Orally Once a day Simvastatin 40 MG 1 tablet in the even ing Orally Once a day Aspirin Adult Low Dose 81 MG 1 tablet Or ally Once a day Omeprazole 20 MG 1 tablet 30 minutes before morning meal Orally Once a day 09/08/2019 Finasteride 5 MG 1 tablet Orally Once a day Fish Oil 1000 MG 2 capsule Orally Onc e a day Viagra 100 MG 1 tablet as needed Orally Once a day as needed hydroCHLOROthiazide 12.5 MG TAKE 1 TABLE T Orally Once a day Irbesartan 300 MG TAKE 1 TABLET BY JAKE TH DAILY Orally Once a day Simvastatin 40 MG 1 tablet in the even ing Orally Once a day 12/04/2024 Next Appt Details Follow Up: 2 Weeks, Reason: OV Provider Name:Ramon Duenas , 09/21/2025 11:00:00 AM, [address] [place] [address], [id number], Progress Notes * Kenny SOLANODOB:1960 ( 64 yo M)Acc No.[id number]:01/14/2025 Progress Notes Patient: Kenny ARROYO Provider: Chris Duenas MD :1960 A ge:64 Y S ex:Male Date:01/14/2025 Address:[address] [place] [id number] Subjective: * Chief Complaints: * E levated PSABenign prostatic hypertrophyAsthmaHyperlipidemiaHypertensionGERD * HPI: C OVID-19 Screening: Cristina castro returns for medical management. He recently saw Dr. Fitch, his primary care physician at the [facility], but did an echocardiogram. He was told this was normal. He is going to have a new primary care physician at the [facility], Dr. Wagner Sanders MD. is a statin was increased to 80 mg. He did not want to take this and requested that we prescribe simvastatin 40 mg. However, I reccommended he follow their advice and take 80 mg a statin. He eventually agreed to do this. No new findings were present on his physical examination today. He is up-to-date with urology. He rises from sleep twice a night to urinate. Questions H ave you had any new onset fever, chills, cough, congestion, sore throat, shortness of breath, muscle aches? N o * ROS: G eneral/Constitutional: pain o nly normal aches and pains. C hills d enies.?Fatigue a dmits. F ever d enies. E NT: Decreased hearing d enies. R espiratory: Cough d enies. C ardiovascular: Chest pain with exertion d enies. D yspnea on exertion?denies. S hortness of breath d enies. G astrointestinal: Constipation o ccasional. D ecreased appetite d enies. D iarrhea d enies. H eartburn o ccasional. N ausea d enies. R ectal bleeding d enies. V omiting d enies. H ematology: bruising d enies. p etechiae d enies. S wollen glands n one have been noted. G enitourinary: Frequent urination t wice a night. M usculoskeletal: Muscle aches d enies. P ainful joints d enies. S ciatica d enies. W eakness d enies. S kin: Itching d enies. R elaine d enies. S kin lesion(s)?denies. N eurologic: Difficulty speaking d enies. D izziness d enies.?Headache d enies. L ow back pain d enies. P sychiatric: Depressed mood d enies. * Medical History: * Surgical History: B ENIGN CYST REMOVED 2004colonoscopy, benign findings 07/2018left fifth finger injury Laser surgery to releave pressure, right eye reventative surgery for narrow angle glaucoma in right eye Colonoscopy, Dr. Polo, one adenomatous polyp 11/2023 * Hospitalization/Major Diagno stic Procedure: N o history * Family History: F ather: 74 yrs, Liver cancer, diagnosed with Cancer. M other: 83 yrs, Dementia, coronary artery disease, hypertension, diagnosed with HTN. S iblings: alive. S on(s): diagnosed with DM. 2 brother(s) , 1 sister(s) - healthy. . His sister has osteoarthritis. His brother has adenomatous polyps in the colon, cardiac illness. Mother passed in January 2019 . No history. * Social History: T obacco Use: T obacco Control (Standard) T obacco use: F ormer smoker H ow long has it been since you last smoked??Greater than 10 years A dditional Findings: Tobacco non-user E x-cigarette smoker Cristina castro was born in [place], [place] and lives in [place]. He has been to [place] for 10 years. She is 20 years older than he is and has 4 children. He has no children. He works at [employer]. He has no toxic exposures. * Medications: T akingAtorvastatin Calcium 80 MG Tablet 1 tablet Orally Once a day Multi Vitamin - Tablet 1 tablet Orally Once a day Flonase Allergy Relief 50 MCG/ACT Suspension 1 spray in each nostril Nasally Twice a day Viagra 100 MG Tablet 1 tablet as needed Orally Once a day as needed Aspirin Adult Low Dose 81 MG Tablet Delayed Release 1 tablet Orally Once a day Fish Oil 1000 MG Capsule 2 capsule Orally Once a day Finasteride 5 MG Tablet 1 tablet Orally Once a day Omeprazole 20 MG Tablet Delayed Release 1 tablet 30 minutes before morning meal Orally Once a day Loratadine 10 MG Tablet Oral Irbesartan 300 MG Tablet TAKE 1 TABLET BY MOUTH DAILY Orally Once a day hydroCHLOROthiazide 12.5 MG Tablet TAKE 1 TABLET Orally Once a day Taking Atorvastatin Calcium 80 MG Tablet 1 tablet Orally Once a day Taking Multi Vitamin - Tablet 1 tablet Orally Once a day Taking Flonase Allergy Relief 50 MCG/ACT Suspension 1 spray in each nostril Nasally Twice a day Taking Viagra 100 MG Tablet 1 tablet as needed Orally Once a day as needed Taking Aspirin Adult Low Dose 81 MG Tablet Delayed Release 1 tablet Orally Once a day Taking Fish Oil 1000 MG Capsule 2 capsule Orally Once a day Taking Finasteride 5 MG Tablet 1 tablet Orally Once a day Taking Omeprazole 20 MG Tablet Delayed Release 1 tablet 30 minutes before morning meal Orally Once a day Taking Loratadine 10 MG Tablet Oral Taking Irbesartan 300 MG Tablet TAKE 1 TABLET BY MOUTH DAILY Orally Once a day Taking hydroCHLOROthiazide 12.5 MG Tablet TAKE 1 TABLET Orally Once a day DiscontinuedSimvastatin 40 MG Tablet 1 tablet in the evening Orally Once a day Medication List reviewed and reconciled with the patientDiscontinued Simvastatin 40 MG Tablet 1 tablet in the evening Orally Once a day Medication List reviewed and reconciled with the patient * Allergies: N eosporin: AllergyGrass Pollen Standardized ExtMoldDust MitesLatex: Allergyno[Allergies Verified] Objective: * Vitals: H t: 73, Wt:219, BMI:28.89, BP:134/79, HR:83, Temp:97.3, Wt-k.34. * Examination: G eneral Examination: GENERAL APPEARANCE: p leasant, well nourished, well developed, in no acute distress, calm and relaxed, overweight, man. HEAD: a traumatic, normocephalic. EYES: e nidhi, perrla, anicteric, conjugate. EARS: n ormal. NOSE: s eptum intact. ORAL CAVITY: n ormal, unremarkable. NECK/THYROID: n o jugular venous distention, no carotid bruit, thyroid normal. LYMPH NODES: n o enlarged lymph nodes,spleen normal. SKIN: n o suspicious lesions, anicteric. HEART: n o clicks, gallops, murmurs, or rubs, regular rhythm, S1, S2 normal, no s3, or vascular bruits. LUNGS: c lear to auscultation . BREASTS: no masses palpable bilaterally. ABDOMEN: b owel sounds normal, no ascites, no organomegaly, no mass, overweight. RECTAL EXAM: n ot examined. MUSCULOSKELETAL: e xtremities unremarkable, no clubbing, cyanosis or edema. PERIPHERAL PULSES: n ormal. NEUROLOGIC: a lert and oriented, cranial nerves 2-12 grossly intact, deep tendon reflexes 2+ symmetrical, motor strength normal upper and lower extremities, sensory exam intact. PSYCH: a lert, oriented. Assessment: * Assessment: 1. B enign prostatic hyperplasia without lower urinary tract symptoms - N40.0 (Primary) ? N otes :His nocturia has diminished since he began to employ lifestyle modification. 2 . G enital warts - A63.0 N otes :He has not had a recurrence since his initial treatment.He is up-to-date with his visits to urology 3 . M ixed hyperlipidemia - E78.2 N otes :His lipids are currently stable with a total cholesterol 219. His triglycerides are 144. I recommend aggressive weight loss and a diet restrricted in calories and sodium combined with regular physical activity.He will continue on the 80 mg dose of atorvastatin. 4 . G ERD without esophagitis - K21.9 N otes :He is going to take omeprazole 20 mg daily and uses a liquid antacid such as Maalox or Mylanta for breakthrough heartburn. 5 . E ssential hypertension - I10 N otes :His blood pressure is currently stable at 136/80. No change in his regimen was necessary. I recommended weight reduction and sodium restriction. Although the systolic is slightly elevated he did not wish more medication. We reviewed the use of sodium restriction weight reduction is no activity in lowering blood pressure. 6 . F ormer smoker - Z87.891 N otes :He has a plan in place to prevent relapse in times of stress and illness. 7 . O verweight - E66.3 N otes :His weight is 219 which is stable and his body mass index is 28.9We discussed his diet and his nutrition. We made a plan to lose weight at a rate of one half of a pound per week through a diet restricted in calories. I recommended regular physical activity as well. Plan: * Treatment: 2. O thers Continue Simvastatin Tablet, 40 MG, 1 tablet in the evening, Orally, Once a day; C ontinue Irbesartan Tablet, 300 MG, TAKE 1 TABLET BY MOUTH DAILY, Orally, Once a day; C ontinue hydroCHLOROthiazide Tablet, 12.5 MG, TAKE 1 TABLET, Orally, Once a day; C ontinue Viagra Tablet, 100 MG, 1 tablet as needed, Orally, Once a day as needed; C ontinue Aspirin Adult Low Dose Tablet Delayed Release, 81 MG, 1 tablet, Orally, Once a day; C ontinue Simvastatin Tablet, 40 MG, 1 tablet in the evening, Orally, Once a day; C ontinue Fish Oil Capsule, 1000 MG, 2 capsule, Orally, Once a day; C ontinue Finasteride Tablet, 5 MG, 1 tablet, Orally, Once a day; C ontinue Omeprazole Tablet Delayed Release, 20 MG, 1 tablet 30 minutes before morning meal, Orally, Once a day. * Procedure Codes: * Preventive Medicine: Counseling: C are goal follow-up plan: Counseling for abnormal BMI given Y es Above Normal BMI Follow-up D ietary management education, guidance, and counseling, Dietary needs education S moking/Tobacco Use Patient counseled on the dangers of tobacco use and urged to quit. 0 01/14/2025 * Follow Up: 2 Weeks (Reason: OV) * Images: * Sign off status: Completed true * Provider: Chris Duenas MD Date: 0 01/14/2025 Generated for Delvin hawkins/Bennett/Leannasmitting on: 1 11/15/2024 07:22 AM EST History and Physical Notes * HPI (History of Present Illness) Category Sub-Category Detail Notes COVID-19 Screening Questions Have you had any new onset fever, chills, cough, congestion, sore throat, shortness of breath, muscle aches?: No Examination Category Sub-Category Detail Notes General Examination GENERAL APPEARANCE: pleasant , well nourished, well developed, in no acute distress, calm and relaxed, overweight, man HEAD: atraumatic, normocep halic EYES: eomi, perrla, anicte kathleen, conjugate EARS: normal NOSE: septum intact NECK/THYROID: no jugular venous di stention, no carotid bruit, thyroid normal HEART: no clicks, gallops, murmurs, or rubs, regular rhythm, S1, S2 normal, no s3, or vascular bruits LUNGS: clear to auscultatio n ABDOMEN: bowel sounds normal, no ascites, no organomegaly, no mass, overweight NEUROLOGIC: alert and oriented, cranial nerves [...] RECTAL EXAM: not examined PSYCH: alert, oriented ORAL CAVITY: normal, unremarkable
--- OUTSIDE RECORDS SUMMARY | 2025-01-28 06:15 | XMS_ITS ---
Author Organization Ramon Duenas III, MD Address [address] [place] [address] Care Team Providers Care Shoe Worker Name Role Phone Dr. Ramon Duenas III Primary Care Provider Allergies Allergen (clinical drug ingredient) Drug/Non Drug Allergy documented on EMR Reaction Allergy Type Onset Date Status Grass Pollen Standardized Ext Unknown Drug Allergy Active Mold Unknown Allergy Active Dust Mites Unknown Allergy Active Latex Latex Unknown Allergy Active Neosporin Unknown Drug Allergy Active REASON FOR VISIT Hypertension, Benign prostatic hypertrophy, Hyperlipidemia Medications Medication SIG (Take, Route, Frequency, Duration) Notes Start Date End Date Status Atorvastatin Calcium 80 MG 1 tablet Oral ly Once a day 01/16/2025 Active Loratadine 10 MG Oral Act jared Flonase Allergy Relief 50 MCG/ACT 1 spray in each nostril Nasally Twice a day Active Multi Vitamin - 1 tablet Orally Once a day Active Omeprazole 20 MG 1 tablet 30 minutes before morning meal Orally Once a day 09/08/2019 Active Aspirin Adult Low Dose 81 MG 1 tablet Or ally Once a day Active Fish Oil 1000 MG 2 capsule Orally Once a day Active Simvastatin 40 MG 1 tablet in the evening Orally Once a day Active Finasteride 5 MG 1 tablet Orally Once a day Active Viagra 100 MG 1 tablet as needed Orally Once a day as needed Active hydroCHLOROthiazide 12.5 MG TAKE 1 TABLE T Orally Once a day Active Irbesartan 300 MG TAKE 1 TABLET BY MOUTH DAILY Orally Once a day Active Simvastatin 40 MG 1 tablet in the evening Orally Once a day 12/04/2024 Active hydroCHLOROthiazide 25 MG 1 tablet in th e morning Orally Once a day for 30 days 01/28/2025 01/23/2026 Active Atorvastatin Calcium 40 MG 1 tablet Oral ly Once a day 01/28/2025 Active hydroCHLOROthiazide 25 MG 1 tablet in th e morning Orally Once a day 01/28/2025 Active Social History Tobacco Use: Social History Observation Description Date Details (start date - stop date) Former Smoker NA - NA Sex Assigned At : Social History Observation Description Sex Assigned At Male Tobacco Control (Standard) Question Answer Notes Tobacco use: Former smoker How long has it been since you last smoked? Sc[place] ter than 10 years Additional Findings: Tobacco non-user Ex-cigaret te smoker Vital Signs Temperature 97.9 degrees Fahrenheit 01/29/20 25 Blood pressure systolic 135 mm Hg 01/29/20 25 Blood pressure diastolic 86 mm Hg 025 Heart Rate 80 /min 01/28/2025 Height 73 in 01/28/2025 Weight 220 lbs 01/28/2025 BMI 29.02 kg/m2 01/28/2025 Encounters Encounter Location Date Provider Diagnosis Ramon Duenas III, MD [address] [place] [address] [place] [address] 01/28/2025 Ramon Duenas Benign prostatic hyperplasia without lower urinary tract symptoms N40.0 ; Essential hypertension I10 ; Mixed hyperlipidemia E78.2 ; GERD without esophagitis K21.9 ; Former smoker Z87.891 and Overweight E66.3 Assessments Encounter Date Diagnosis (ICD Code) Assessment Notes Treat ment Notes Treatment Clinical Notes 01/28/2025 Benign prostatic hyperplasia without lower urinary tract symptoms (ICD-10 - N40.0) His nocturia has diminished since he began to employ lifestyle modification. 01/28/2025 Essential hypertension (ICD-10 - I10) His blood pressure is currently stable at 135/80. No change in his regimen was necessary. I recommended weight reduction and sodium restriction. Although the systolic is slightly elevated he did not wish more medication. We reviewed the use of sodium restriction weight reduction is no activity in lowering blood pressure. 01/28/2025 Mixed hyperlipidemia (ICD-10 - E78.2) His lipids are currently stable. I recommend aggressive weight loss and a diet restrricted in calories and sodium combined with regular physical activity.He will continue on the 80 mg dose of atorvastatin. 01/28/2025 GERD without esophagitis (ICD-10 - K21.9) He is going to take omeprazole 20 mg daily and uses a liquid antacid such as Maalox or Mylanta for breakthrough heartburn. 01/28/2025 Former smoker (ICD-1 0 - Z87.891) He has a plan in place to prevent relapse in times of stress and illness. 01/28/2025 Overweight (ICD-10 - E66.3) His weight is [...] Name Sig Start Date Stop Date Notes Atorvastatin Calcium 80 MG 1 tablet Oral ly Once a day 01/16/2025 Loratadine 10 MG Oral Flonase Allergy Relief 50 MCG/ACT 1 spra y in each nostril Nasally Twice a day Multi Vitamin - 1 tablet Orally Once a day Omeprazole 20 MG 1 tablet 30 minutes before morning meal Orally Once a day 09/08/2019 Aspirin Adult Low Dose 81 MG 1 tablet Or ally Once a day Fish Oil 1000 MG 2 capsule Orally Onc e a day Simvastatin 40 MG 1 tablet in the even ing Orally Once a day Finasteride 5 MG 1 tablet Orally Once a day Viagra 100 MG 1 tablet as needed Orally Once a day as needed hydroCHLOROthiazide 12.5 MG TAKE 1 TABLE T Orally Once a day Irbesartan 300 MG TAKE 1 TABLET BY JAKE TH DAILY Orally Once a day Simvastatin 40 MG 1 tablet in the even ing Orally Once a day 12/04/2024 hydroCHLOROthiazide 25 MG 1 tablet in th e morning Orally Once a day for 30 days 01/28/2025 01/23/2026 Atorvastatin Calcium 40 MG 1 tablet Oral ly Once a day 01/28/2025 hydroCHLOROthiazide 25 MG 1 tablet in th e morning Orally Once a day 01/28/2025 Next Appt Details Follow Up: 6 Weeks, Reason: ov Provider Name:Ramon Duenas , 09/21/2025 11:00:00 AM, [address] [place] [address] [place] [place], [place], [address], Progress Notes * Kenny DE LA FUENTEDOB:1960 ( 64 yo M)Acc No.[id number]:01/28/2025 Progress Notes Patient: Sergey Kenny BRAUN Provider: Chris Duenas MD :1960 A ge:64 Y S ex:Male Date:01/28/2025 Address:[address] [place], [place] [id number] Subjective: * Chief Complaints: * H ypertensionBenign prostatic hypertrophyHyperlipidemia * HPI: C OVID-19 Screening: Cristina castro has been taking the 40 mg of a atorvastatin. Returns today for blood pressure evaluation. He has been compliant with all of his other medication. He recently saw his sales engineer account manager, Dr. Carr. He was found to have bone spurs in multiple places in his back. He complains of intermittent back pain. Blood work was done at the [facility] on December 29, 2024 showed white count 7.9 hematocrit 45.2 platelets 352 glucose 118 BUN 21 creatinine 1.1 total cholesterol 223 triglycerides 105 HDL 47 LDL 155 ratio 4.7. Questions H ave you had any new [...] of breath d enies. G astrointestinal: Constipation d enies. D ecreased appetite d enies.?Diarrhea d enies. H eartburn d enies. N ausea d enies. R ectal bleeding?denies. V omiting d enies. H ematology: bruising d enies. p etechiae d enies. S wollen glands n one have been noted. G enitourinary: Frequent urination d enies. M usculoskeletal: Muscle aches d enies. P [...] x-cigarette smoker Cristina castro was born in [place], [place] and lives in [place]. He has been to [place] for 10 years. She is 20 years older than he is and has 4 children. He has no children. He works at [employer]. He has no toxic exposures. * Medications: T akingAtorvastatin Calcium 40 MG Tablet 1 tablet Orally Once a day hydroCHLOROthiazide 25 MG Tablet 1 tablet in the morning Orally Once a day Irbesartan 300 MG Tablet TAKE 1 TABLET BY MOUTH DAILY Orally Once a day hydroCHLOROthiazide 12.5 MG Tablet TAKE 1 TABLET Orally Once a day Viagra 100 MG Tablet 1 tablet as needed Orally Once a day as needed Aspirin Adult Low Dose 81 MG Tablet Delayed Release 1 tablet Orally Once a day Simvastatin 40 MG Tablet 1 tablet in the evening Orally Once a day Fish Oil 1000 MG Capsule 2 capsule Orally Once a day Finasteride 5 MG Tablet 1 tablet Orally Once a day Omeprazole 20 MG Tablet Delayed Release 1 tablet 30 minutes before morning meal Orally Once a day Loratadine 10 MG Tablet Oral Multi Vitamin - Tablet 1 tablet Orally Once a day Flonase Allergy Relief 50 MCG/ACT Suspension 1 spray in each nostril Nasally Twice a day Taking Atorvastatin Calcium 40 MG Tablet 1 tablet Orally Once a day Taking hydroCHLOROthiazide 25 MG Tablet 1 tablet in the morning Orally Once a day Taking Irbesartan 300 MG Tablet TAKE 1 TABLET BY MOUTH DAILY Orally Once a day Taking hydroCHLOROthiazide 12.5 MG Tablet TAKE 1 TABLET Orally Once a day Taking Viagra 100 MG Tablet 1 tablet as needed Orally Once a day as needed Taking Aspirin Adult Low Dose 81 MG Tablet Delayed Release 1 tablet Orally Once a day Taking Simvastatin 40 MG Tablet 1 tablet in the evening Orally Once a day Taking Fish Oil 1000 MG Capsule 2 capsule Orally Once a day Taking Finasteride 5 MG Tablet 1 tablet Orally Once a day Taking Omeprazole 20 MG Tablet Delayed Release 1 tablet 30 minutes before morning meal Orally Once a day Taking Loratadine 10 MG Tablet Oral Taking Multi Vitamin - Tablet 1 tablet Orally Once a day Taking Flonase Allergy Relief 50 MCG/ACT Suspension 1 spray in each nostril Nasally Twice a day DiscontinuedSimvastatin 40 MG Tablet 1 tablet in the evening Orally Once a day Atorvastatin Calcium 80 MG Tablet 1 tablet Orally Once a day Medication List reviewed and reconciled with the patientDiscontinued Simvastatin 40 MG Tablet 1 tablet in the evening Orally Once a day Discontinued Atorvastatin Calcium 80 MG Tablet 1 tablet Orally Once a day Medication List reviewed and reconciled with the patient * Allergies: N eosporin: AllergyGrass Pollen Standardized ExtMoldDust MitesLatex: Allergyno[Allergies Verified] Objective: * Vitals: H t: 73, Wt:220, BMI:29.02, BP:135/86, HR:80, Temp:97.9, Wt-k.79. * Examination: G eneral Examination: GENERAL APPEARANCE: [...] a lert, oriented. Assessment: * Assessment: 1. E ssential hypertension - I10 (Primary) N otes :His blood pressure is currently stable at 135/80. No change in his regimen was necessary. I recommended weight reduction and sodium restriction. Although the systolic is slightly elevated he did not wish more medication. We reviewed the use of sodium restriction weight reduction is no activity in lowering blood pressure. 2 . B enign prostatic hyperplasia without lower urinary tract symptoms - N40.0? Notes :His nocturia has diminished since he began to employ lifestyle modification. 3 . M ixed hyperlipidemia - E78.2 N otes :His lipids are currently stable. I recommend aggressive weight loss and a diet restrricted in calories and sodium combined with regular physical activity.He will continue on the 80 mg dose of atorvastatin. 4 . G ERD without esophagitis - K21.9 N otes :He is going to take omeprazole 20 mg daily and uses a liquid antacid such as Maalox or Mylanta for breakthrough heartburn. 5 . F ormer smoker - Z87.891 N otes :He has a plan in place to prevent relapse in times of stress and illness. 6 . O verweight - E66.3 N otes [...] Follow-up D ietary management education, guidance, and counseling S moking/Tobacco Use Patient counseled on the dangers of tobacco use and urged to quit. 0 01/28/2025 * Follow Up: 6 Weeks (Reason: ov) * Images: * Sign off status: Completed true * Provider: Chris Duenas MD Date: 0 01/28/2025 Generated for Delvin hawkins/Bennett/Aicha on: 11/15/2024 07:21 AM EST History and Physical Notes * [...]
--- OUTSIDE RECORDS SUMMARY | 2025-02-20 05:00 | XMS_ITS ---
Author Organization Ramon Duenas III, MD Address [address] [address] Care Team Providers Care Business Development Recruiter Name Role Phone Dr. Ramon Duenas III Primary Care Provider Allergies Allergen (clinical drug ingredient) Drug/Non Drug Allergy documented on EMR Reaction Allergy Type Onset Date Status Grass Pollen Standardized Ext Unknown Drug Allergy Active Mold Unknown Allergy Active Dust Mites Unknown Allergy Active Latex Latex Unknown Allergy Active Neosporin Unknown Drug Allergy Active REASON FOR VISIT Benign prostatic hypertrophy, Hyperlipidemia, GERD, Hypertension Medications Medication SIG (Take, Route, Frequency, Duration) Notes Start Date End Date Status hydroCHLOROthiazide 25 MG 1 tablet in th e morning Orally Once a day 01/28/2025 Active Atorvastatin Calcium 40 MG 1 tablet Oral ly Once a day 01/28/2025 Active Multi Vitamin - 1 tablet Orally Once a day Active Flonase Allergy Relief 50 MCG/ACT 1 spray in each nostril Nasally Twice a day Active Fish Oil 1000 MG 2 capsule Orally Onc e a day Active Finasteride 5 MG 1 tablet Orally Once a day Active Omeprazole 20 MG 1 tablet 30 minutes before morning meal Orally Once a day 09/08/2019 Active Loratadine 10 MG Oral Act jared Aspirin Adult Low Dose 81 MG 1 tablet Or ally Once a day Active Viagra 100 MG 1 tablet as needed Orally Once a day as needed Active Irbesartan 300 MG TAKE 1 TABLET BY MOUTH DAILY Orally Once a day Active Social History Tobacco Use: Social History Observation Description Date Details (start date - stop date) Former Smoker NA - NA Sex Assigned At : Social History Observation Description Sex Assigned At Male Tobacco Control (Standard) Question Answer Notes Tobacco use: Former smoker How long has it been since you last smoked? Gre[place] ter than 10 years Additional Findings: Tobacco non-user Ex-cigaret te smoker Vital Signs Temperature 97.9 degrees Fahrenheit 02/21/20 25 Blood pressure systolic 130 mm Hg 02/21/20 25 Blood pressure diastolic 70 mm Hg 025 Heart Rate 72 /min 02/20/2025 Height 73 in 02/20/2025 Weight 220 lbs 02/20/2025 BMI 29.02 kg/m2 02/20/2025 Encounters Encounter Location Date Provider Diagnosis Ramon Duenas III, MD [address] [place] [address] [place] [address] 02/20/2025 Ramon Duenas Benign prostatic hyperplasia without lower urinary tract symptoms N40.0 ; Mixed hyperlipidemia E78.2 ; GERD without esophagitis K21.9 ; Essential hypertension I10 ; Former smoker Z87.891 and Overweight E66.3 Assessments Encounter Date Diagnosis (ICD Code) Assessment Notes Treat ment Notes Treatment Clinical Notes 02/20/2025 Benign prostatic hyperplasia without lower urinary tract symptoms (ICD-10 - N40.0) His nocturia has diminished since he began to employ lifestyle modification. 02/20/2025 Mixed hyperlipidemia (ICD-10 - E78.2) His lipids are currently stable. I recommend aggressive weight loss and a diet restrricted in calories and sodium combined with regular physical activity.He will continue on the 80 mg dose of atorvastatin. 02/20/2025 GERD without esophagitis (ICD-10 - K21.9) He is going to take omeprazole 20 mg daily and uses a liquid antacid such as Maalox or Mylanta for breakthrough heartburn. 02/20/2025 Essential hypertension (ICD-10 - I10) His blood pressure is currently stable at 135/80. No change in his regimen was necessary. I recommended weight reduction and sodium restriction. Although the systolic is slightly elevated he did not wish more medication. We reviewed the use of sodium restriction weight reduction is no activity in lowering blood pressure. 02/20/2025 Former smoker (ICD-1 0 - Z87.891) He has a plan in place to prevent relapse in times of stress and illness. 02/20/2025 Overweight (ICD-10 - E66.3) His weight is [...] Sig Start Date Stop Date Notes hydroCHLOROthiazide 25 MG 1 tablet in th e morning Orally Once a day 01/28/2025 Atorvastatin Calcium 40 MG 1 tablet Oral ly Once a day 01/28/2025 Multi Vitamin - 1 tablet Orally Once a day Flonase Allergy Relief 50 MCG/ACT 1 spra y in each nostril Nasally Twice a day Fish Oil 1000 MG 2 capsule Orally Onc e a day Finasteride 5 MG 1 tablet Orally Once a day Omeprazole 20 MG 1 tablet 30 minutes before morning meal Orally Once a day 09/08/2019 Loratadine 10 MG Oral Aspirin Adult Low Dose 81 MG 1 tablet Or ally Once a day Viagra 100 MG 1 tablet as needed Orally Once a day as needed Irbesartan 300 MG TAKE 1 TABLET BY JAKE TH DAILY Orally Once a day Next Appt Details Follow Up: 4 Months, Reason: OV Provider Name:Ramon Duenas , 09/21/2025 11:00:00 AM, [address] [place] [address] , [address], [phone], Progress Notes * Kenny SOLANODOB:1960 ( 64 yo M)Acc No.[id number]:02/20/2025 Progress Notes Patient: Kenny ARROYO Provider: Chris Duenas MD :1960 A ge:64 Y S ex:Male Date:02/20/2025 Address:[address] [place] [id number] Subjective: * Chief Complaints: * B enign prostatic hypertrophyHyperlipidemiaGERDHypertension * HPI: C OVID-19 Screening: Cristina castro recently saw his hand turner made a referral to physical therapy which has begun. He has a [age] upcoming. He recently took a trip to [place]. He denies any new illnesses. He says he feels healthy and well.His blood pressure is in the normal range and his BMI is 29. We discussed lifestyle modification diet today. Questions H ave you had any new [...] have been noted. G enitourinary: Frequent urination o nce a night. M usculoskeletal: Muscle aches d enies. P ainful joints d enies. S ciatica d enies. W eakness d enies. S kin: Itching d enies. R elaine d enies. S kin lesion(s)?denies. N eurologic: Difficulty speaking d enies. D izziness d enies.?Headache d enies. L ow back pain d enies. P sychiatric: Depressed mood w hich is mild. * Medical History: * Surgical History: B [...] x-cigarette smoker Cristina castro was born in [place], [place] and lives in [place]. He has been to [place] for 10 years. She is 20 years older than he is and has 4 children. He has no children. He works at [employer]. He has no toxic exposures. * Medications: T akingIrbesartan 300 MG Tablet TAKE 1 TABLET BY MOUTH DAILY Orally Once a day Viagra 100 MG [...] in each nostril Nasally Twice a day hydroCHLOROthiazide 25 MG Tablet 1 tablet in the morning Orally Once a day , stop date 01/23/2026torvastatin Calcium 40 MG Tablet 1 tablet Orally Once a day Taking Irbesartan 300 MG Tablet TAKE 1 TABLET BY MOUTH DAILY Orally Once a day Taking Viagra 100 [...] each nostril Nasally Twice a day Taking hydroCHLOROthiazide 25 MG Tablet 1 tablet in the morning Orally Once a day , stop date 01/23/2026Taking Atorvastatin Calcium 40 MG Tablet 1 tablet Orally Once a day DiscontinuedhydroCHLOROthiazide 12.5 MG Tablet TAKE 1 TABLET Orally Once a day hydroCHLOROthiazide 25 MG Tablet 1 tablet in the morning Orally Once a day Simvastatin 40 MG Tablet 1 tablet in the evening Orally Once a day Simvastatin 40 MG Tablet 1 tablet in the evening Orally Once a day Atorvastatin Calcium 80 MG Tablet 1 tablet Orally Once a day Medication List reviewed and reconciled with the patientDiscontinued hydroCHLOROthiazide 12.5 MG Tablet TAKE 1 TABLET Orally Once a day Discontinued hydroCHLOROthiazide 25 MG Tablet 1 tablet in the morning Orally Once a day Discontinued Simvastatin 40 MG Tablet 1 tablet in the evening Orally Once a day Discontinued Simvastatin 40 MG Tablet 1 tablet in the evening Orally Once a day Discontinued Atorvastatin Calcium 80 MG Tablet 1 tablet Orally Once a day Medication List reviewed and reconciled with the patient * Allergies: N eosporin: AllergyGrass Pollen Standardized ExtMoldDust MitesLatex: Allergyno[Allergies Verified] Objective: * Vitals: H t: 73, Wt:220, BMI:29.02, BP:130/70, HR:72, Temp:97.9, Wt-k.79. * Examination: G eneral Examination: [...] began to employ lifestyle modification. 2 . M ixed hyperlipidemia - E78.2 N otes :His lipids are currently stable. I recommend aggressive weight loss and a diet restrricted in calories and sodium combined with regular physical activity.He will continue on the 80 mg dose of atorvastatin. 3 . G ERD without esophagitis - K21.9 N otes :He is going to take omeprazole 20 mg daily and uses a liquid antacid such as Maalox or Mylanta for breakthrough heartburn. 4 . E ssential hypertension - I10 N otes :His blood pressure is currently stable at 135/80. No change in his regimen was necessary. I recommended weight reduction and sodium restriction. Although the systolic is slightly elevated he did not wish more medication. We reviewed the use of sodium restriction weight reduction is no activity in lowering blood pressure. 5 . F ormer smoker - Z87.891 [...] Plan: * Treatment: 2. O thers Continue Irbesartan Tablet, 300 MG, TAKE 1 TABLET BY MOUTH DAILY, Orally, Once a day; C ontinue Viagra Tablet, 100 MG, 1 tablet as needed, Orally, Once a day as needed; C ontinue Aspirin Adult Low Dose Tablet Delayed Release, 81 MG, 1 tablet, Orally, Once a day; C ontinue Fish [...] es Above Normal BMI Follow-up D ietary needs education S moking/Tobacco Use Patient counseled on the dangers of tobacco use and urged to quit. 0 02/20/2025 * Follow Up: 4 Months (Reason: OV) * Images: * Sign off status: Completed true * Provider: Chris Duenas MD Date: 0 02/20/2025 Generated for Delvin hawkins/Bennett/Aicha on: 11/15/2024 07:21 [...]
--- OUTSIDE RECORDS SUMMARY | 2025-06-01 08:40 | XMS_ITS ---
Author Organization Ramon Duenas III, MD Address [address] [place] [address] [place] [address] Care Team Providers Care Policy Change Clerks Supervisor Name Role Phone Dr. Ramon Duenas III Primary Care Provider [phone] REASON FOR VISIT refill of Atorvastatin Medications Medication SIG (Take, Route, Frequency, Duration) Notes Start Date End Date Status Atorvastatin Calcium 40 MG 1 tablet Oral ly Once a day for 90 days 01/28/2025 Active Social History Sex Assigned At : Social History Observation Description Sex Assigned At Male Encounters Encounter Location Date Provider Diagnosis Ramon Duenas III, MD [address] [place] [address] [place] [address] 06/01/2025 Ramon Duenas Benign prostatic hyperplasia without lower urinary tract symptoms N40.0 Assessments Encounter Date Diagnosis (ICD Code) Assessment Notes Treatment Notes Treatment Clinical Notes 06/01/2025 Benign prostatic hyperplasia without lower urinary tract symptoms (ICD-10 - N40.0) His nocturia has diminished since he began to employ lifestyle modification. Plan Of Treatment Medication Medication Name Sig Start Date Stop Date Notes Atorvastatin Calcium 40 MG 1 tablet Oral ly Once a day for 90 days 01/28/2025 Next Appt Details Provider Name:Ramon Duenas , 09/21/2025 11:00:00 AM, [address] [place] [address] [place], [address], Progress Notes * Kenny DE LA FUENTEDOB:1960 ( 65 yo M)Acc No.[id number]:06/01/2025 Patient: eKnny ARROYO :1960 A ge:65 Y S ex:Male Address:[address] [place] [address], [facility] [place], * Refills Refill Atorvastatin Calcium Tablet, 40 MG, Orally, 90, 1 tablet, Once a day, 90 days, Refills=3 * true * Date: Generated for Delvin hawkins/Bennett/Aicha on: 11/15/2024 07:22 AM EST
--- OUTSIDE RECORDS SUMMARY | 2025-06-16 05:00 | XMS_ITS ---
Author Organization Ramon Duenas III, MD Address [address] [place] [address] Care Team Providers Care Felt Washing Machine Tender Name Role Phone Dr. Ramon Duenas III Primary Care Provider Allergies Allergen (clinical drug ingredient) Drug/Non Drug Allergy documented on EMR Reaction Allergy Type Onset Date Status Grass Pollen Standardized Ext Unknown Drug Allergy Active Mold Unknown Allergy Active Dust Mites Unknown Allergy Active Latex Latex Unknown Allergy Active Neosporin Unknown Drug Allergy Active REASON FOR VISIT Hemorrhoid, Benign prostatic hypertrophy, Hyperlipidemia, GERD, Hypertension, Elevated PSA Medications Medication SIG (Take, Route, Frequency, Duration) Notes Start Date End Date Status Fish Oil 1000 MG 2 capsule Orally Onc e a day Active Aspirin Adult Low Dose 81 MG 1 tablet Or ally Once a day Active Loratadine 10 MG Oral Act jared Omeprazole 20 MG 1 tablet 30 minutes before morning meal Orally Once a day 09/08/2019 Active Finasteride 5 MG 1 tablet Orally Once a day Active Viagra 100 MG 1 tablet as needed Orally Once a day as needed Active Irbesartan 300 MG TAKE 1 TABLET BY MOUTH DAILY Orally Once a day Active Atorvastatin Calcium 40 MG 1 tablet Oral ly Once a day 01/28/2025 Active hydroCHLOROthiazide 25 MG 1 tablet in th e morning Orally Once a day 01/28/2025 Active Flonase Allergy Relief 50 MCG/ACT 1 spray in each nostril Nasally Twice a day Active Multi Vitamin - 1 tablet Orally Once a day Active Social History [...] non-user Ex-cigaret te smoker Vital Signs Temperature 98.4 degrees Fahrenheit 06/16/20 25 Blood pressure systolic 130 mm Hg 06/16/20 25 Blood pressure diastolic 70 mm Hg 025 Heart Rate 80 /min 06/16/2025 Height 73 in 06/16/2025 Weight 217 lbs 06/16/2025 BMI 28.63 kg/m2 06/16/2025 Encounters Encounter Location Date Provider Diagnosis Ramon Duenas III, MD [address] [place] [address] [place] [address] 06/16/2025 Ramon Duenas Benign prostatic hyperplasia without lower urinary tract symptoms N40.0 ; Essential hypertension I10 ; Mixed hyperlipidemia E78.2 ; Overweight E66.3 ; Former smoker Z87.891 ; GERD without esophagitis K21.9 ; Elevated PSA R97.20 ; Other hemorrhoids K64.8 and Genital warts A63.0 Assessments Encounter Date Diagnosis (ICD Code) Assessment Notes Treat ment Notes Treatment Clinical Notes 06/16/2025 Benign prostatic hyperplasia without lower urinary tract symptoms (ICD-10 - N40.0) His nocturia has diminished since he began to employ lifestyle modification. 06/16/2025 Essential hypertension (ICD-10 - I10) His blood pressure is currently stable at 130/70. No change in his regimen was necessary. I recommended weight reduction and sodium restriction. Although the systolic is slightly elevated he did not wish more medication. We reviewed the use of sodium restriction weight reduction is no activity in lowering blood pressure. 06/16/2025 Mixed hyperlipidemia (ICD-10 - E78.2) Comprehensive blood work is due and indicated. Fasting lipid profile will be part of this in the near future. 06/16/2025 Overweight (ICD-10 - E66.3) His body mass index is 28.3. He has lost 3 pounds. We discussed his diet and nutrition and made plans to continue weight loss at a rate of one half 06/16/2025 Former smoker (ICD-10 - Z87.891) He has a plan in place to prevent relapse in times of stress and illness. 06/16/2025 GERD without esophagitis (ICD-10 - K21.9) He is going to take omeprazole 20 mg daily and uses a liquid antacid such as Maalox or Mylanta for breakthrough heartburn. 06/16/2025 Elevated PSA (ICD-10 - R97.20) His PSA is currently in the normal range and will be followed carefully. 06/16/2025 Other hemorrhoids (ICD-10 - K64.8) Another hemorrhoid has been detected. He will be treated with hydrocortisone cream. There was no bleeding. 06/16/2025 Genital warts (ICD-10 - A63.0) The anal area was examined today and no warts were noted. Plan Of Treatment Medication Medication Name Sig Start Date Stop Date Notes Fish Oil 1000 MG 2 capsule Orally Onc e a day Aspirin Adult Low Dose 81 MG 1 tablet Or ally Once a day Loratadine 10 MG Oral Omeprazole 20 MG 1 tablet 30 minutes before morning meal Orally Once a day 09/08/2019 Finasteride 5 MG 1 tablet Orally Once a day Viagra 100 MG 1 tablet as needed Orally Once a day as needed Irbesartan 300 MG TAKE 1 TABLET BY JAKE TH DAILY Orally Once a day Atorvastatin Calcium 40 MG 1 tablet Oral ly Once a day 01/28/2025 hydroCHLOROthiazide 25 MG 1 tablet in th e morning Orally Once a day 01/28/2025 Flonase Allergy Relief 50 MCG/ACT 1 spra y in each nostril Nasally Twice a day Multi Vitamin - 1 tablet Orally Once a day Pending Test Test Name Order Date PROFILE, FASTING (COMPREHENSIVE METABOLI C) 06/16/2025 PSA, TOTAL 06/16/2025 CBC w DIFF 06/16/2025 Lipid Panel 06/16/2025 Next Appt Details Follow Up: As Scheduled, Trena son: Annual Exam Provider Name:Ramon Duenas , 09/21/2025 11:00:00 AM, [address] [place] [address] DR, [facility] [address], [place], [address], Progress Notes * Kenny SOLANODOB:1960 ( 65 yo M)Acc No.[id number]:06/16/2025 Progress Notes Patient: Kenny ARROYO Provider: Chris Duenas MD :1960 A ge:65 Y S ex:Male Date:06/16/2025 Address:[address] [place] [address] [id number] Subjective: * Chief Complaints: * H emorrhoidBenign prostatic hypertrophyHyperlipidemiaGERDHypertensionElevated PSA * HPI: C OVID-19 Screening: He returns to the office for a scheduled visit for medical management of several issues.His vital signs are stable. He has lost 3 pounds. His blood pressure is 130/70. He has been compliant with all of his medications. Is 1 new complaint is he thinks he has a hemorrhoid which was true on inspection. This will be treated with hydrocortisone cream twice a day for a week. He had no other new complaints and feels generally well. Questions H ave you had any new onset fever, chills, cough, congestion, sore throat, shortness of breath, muscle aches? N o * ROS: G eneral/Constitutional: pain H emorrhoid. C hills d enies. F atigue?admits. F ever d enies. E NT: Decreased hearing d enies. R espiratory: Cough d enies. C ardiovascular: Chest pain with exertion d enies. D yspnea on exertion?denies. S hortness of breath d enies. G astrointestinal: Constipation o ccasional. D ecreased appetite d enies. D iarrhea d enies. H eartburn d enies. N ausea d enies. R ectal bleeding [...] * Surgical History: B ENIGN CYST REMOVED 2003colonoscopy, benign findings 07/2018left fifth finger injury Laser [...] x-cigarette smoker Cristina castro was born in [place], [place] and lives in [place]. He has been to [place] for 10 years. She is 20 years older than he is and has 4 children. He has no children. He works at [employer]. He has no toxic exposures. * Medications: [...] in the morning Orally Once a day Atorvastatin Calcium 40 MG Tablet 1 tablet Orally Once a day Medication List reviewed and reconciled with the patientTaking Irbesartan 300 MG Tablet TAKE 1 TABLET [...] the morning Orally Once a day Taking Atorvastatin Calcium 40 MG Tablet 1 tablet Orally Once a day Medication List reviewed and reconciled with the patient * Allergies: N eosporin: AllergyGrass Pollen Standardized ExtMoldDust MitesLatex: Allergyno[Allergies Verified] Objective: * Vitals: H t: 73, Wt:217, BMI:28.63, BP:130/70, HR:80, Temp:98.4, Wt-k.43. * Examination: G eneral Examination: GENERAL APPEARANCE: p leasant, well nourished, well developed, in no acute distress, calm and relaxed: overweight: man. HEAD: a traumatic, normocephalic. EYES: e [...] sounds normal, no ascites, no organomegaly, no mass: overweight. RECTAL EXAM: N o genital warts, one small hemorrhoid 1 cm in diameter in the anal canal. MUSCULOSKELETAL: e xtremities unremarkable, no clubbing, cyanosis or edema. PERIPHERAL PULSES: n ormal. NEUROLOGIC: a lert and oriented, cranial nerves 2-12 grossly intact, deep tendon reflexes 2+ symmetrical, motor strength normal upper and lower extremities, sensory exam intact. PSYCH: a lert, oriented. Assessment: * Assessment: 1. E ssential hypertension - I10 (Primary) N otes :His blood pressure is currently stable at 130/70. No change in his regimen was necessary. [...] M ixed hyperlipidemia - E78.2 N otes :Comprehensive blood work is due and indicated. Fasting lipid profile will be part of this in the near future. 4 . O verweight - E66.3 N otes :His body mass index is 28.3. He has lost 3 pounds. We discussed his diet and nutrition and made plans to continue weight loss at a rate of one half 5 . F ormer smoker - Z87.891 N otes :He has a plan in place to prevent relapse in times of stress and illness. 6 . G ERD without esophagitis - K21.9 N otes :He is going to take omeprazole 20 mg daily and uses a liquid antacid such as Maalox or Mylanta for breakthrough heartburn. 7 . E levated PSA - R97.20 N otes :His PSA is currently in the normal range and will be followed carefully. 8 . O ther hemorrhoids - K64.8 N otes :Another hemorrhoid has been detected. He will be treated with hydrocortisone cream. There was no bleeding. 9 . G enital warts - A63.0 N otes :The anal area was examined today and no warts were noted. Plan: * Treatment: 2. M ixed hyperlipidemia L AB: PROFILE, FASTING (COMPREHENSIVE METABOLIC) L AB: PSA, TOTAL L AB: CBC w DIFF L AB: Lipid Panel 3. O verweight L AB: PROFILE, FASTING (COMPREHENSIVE METABOLIC) L AB: PSA, TOTAL L AB: CBC w DIFF L AB: Lipid Panel 4. O thers Continue Irbesartan Tablet, 300 MG, [...] tobacco use and urged to quit. 0 06/16/2025 * Follow Up: A s Scheduled (Reason: Annual Exam) * Images: * Sign off status: Completed true * Provider: Chris Duenas MD Date: 0 06/16/2025 Generated for Memei ng/Bennett/eTransmitting on: 1 11/15/2024 07:21 AM EST History and Physical Notes * HPI (History of Present Illness) Category Sub-Category Detail Notes COVID-19 Screening Questions Have you had any new onset fever, chills, cough, congestion, sore throat, shortness of breath, muscle aches?: No Examination Category Sub-Category Detail Notes General Examination GENERAL APPEARANCE: pleasant , well nourished, well developed, in no acute distress, calm and relaxed: overweight: man HEAD: atraumatic, normocep halic EYES: eomi, perrla, anicte kathleen, conjugate EARS: normal NOSE: septum intact NECK/THYROID: no jugular venous di stention, no carotid bruit, thyroid normal HEART: no clicks, gallops, murmurs, or rubs, regular rhythm, S1, S2 normal, no s3, or vascular bruits LUNGS: clear to auscultatio n ABDOMEN: bowel sounds normal, no ascites, no organomegaly, no mass: overweight NEUROLOGIC: alert and oriented, cranial nerves 2-12 grossly intact, deep tendon reflexes 2+ symmetrical, motor strength normal upper and lower extremities, sensory exam intact SKIN: no suspicious lesion s, anicteric PERIPHERAL PULSES: normal BREASTS: no masses palpable b ilaterally MUSCULOSKELETAL: extremities unremark able, no clubbing, cyanosis or edema LYMPH NODES: no enlarged lymph no makenzie,spleen normal RECTAL EXAM: No genital warts, on e small hemorrhoid 1 cm in diameter in the anal canal PSYCH: alert, oriented ORAL CAVITY: normal, unremarkable
--- OUTSIDE RECORDS SUMMARY | 2025-07-15 10:45 | XMS_ITS ---
Author Organization Ramon Duenas III, MD Address [address] [place] [address] Care Team Providers Care Ball Fringe Machine Operator Name Role Phone Dr. Ramon Duenas III Primary Care Provider [phone] Allergies Allergen (clinical drug ingredient) Drug/Non Drug Allergy documented on EMR Reaction Allergy Type Onset Date Status Grass Pollen Standardized Ext Unknown Drug Allergy Active Mold Unknown Allergy Active Dust Mites Unknown Allergy Active Latex Latex Unknown Allergy Active Neosporin Unknown Drug Allergy Active REASON FOR VISIT Genital and bilateral groin rash 2 weeks duration, Benign prosthetic hypertrophy, Hyperlipidemia, Hypertension, GERD, Elevated PSA Medications Medication SIG (Take, Route, Frequency, Duration) Notes Start Date End Date Status Flonase Allergy Relief 50 MCG/ACT 1 spray in each nostril Nasally Twice a day Active hydroCHLOROthiazide 25 MG 1 tablet in th e morning Orally Once a day 01/28/2025 Active Ketoconazole 2 % 1 application Externally twice a day for 21 days 07/15/2025 11/17/2025 Active Loratadine 10 MG Oral Act jared Multi Vitamin - 1 tablet Orally Once a day Active Viagra 100 MG 1 tablet as needed Orally Once a day as needed Active Aspirin Adult Low Dose 81 MG 1 tablet Or ally Once a day Active Fish Oil 1000 MG 2 capsule Orally Onc e a day Active Finasteride 5 MG 1 tablet Orally Once a day Active Omeprazole 20 MG 1 tablet 30 minutes before morning meal Orally Once a day 09/08/2019 Active Atorvastatin Calcium 40 MG 1 tablet Oral ly Once a day 01/28/2025 Active Irbesartan 300 MG TAKE 1 TABLET [...] non-user Ex-cigaret te smoker Vital Signs Temperature 97.5 degrees Fahrenheit 07/15/20 25 Blood pressure systolic 134 mm Hg 07/15/20 25 Blood pressure diastolic 77 mm Hg 025 Heart Rate 88 /min 07/15/2025 Height 73 in 07/15/2025 Weight 220 lbs 07/15/2025 BMI 29.02 kg/m2 07/15/2025 Encounters Encounter Location Date Provider Diagnosis Ramon Duenas III, MD [address] [place] [address] [place] [address] 07/15/2025 Ramon Duenas Benign prostatic hyperplasia without lower urinary tract symptoms N40.0 ; Overweight E66.3 ; Mixed hyperlipidemia E78.2 ; Former smoker Z87.891 ; GERD without esophagitis K21.9 and Elevated PSA R97.20 Assessments Encounter Date Diagnosis (ICD Code) Assessment Notes Treat ment Notes Treatment Clinical Notes 07/15/2025 Benign prostatic hyperplasia without lower urinary tract symptoms (ICD-10 - N40.0) His nocturia has diminished since he began to employ lifestyle modification. 07/15/2025 Overweight (ICD-10 - E66.3) We have discussed weight reduction strategies today. We discussed a healthy diet and nutrition. We made a plan to lose weight at a rate of one half of a pound per week through a diet restricted in fat calories and sodium combined with regular physical activity. 07/15/2025 Mixed hyperlipidemia (ICD-10 - E78.2) His lipids are currently stable and no change in his regimen is needed. 07/15/2025 Former smoker (ICD-1 0 - Z87.891) He has a plan in place to prevent relapse in times of stress and illness. 07/15/2025 GERD without esophagitis (ICD-10 - K21.9) He is going to take omeprazole 20 mg daily and uses a liquid antacid such as Maalox or Mylanta for breakthrough heartburn. 07/15/2025 Elevated PSA (ICD-10 - R97.20) His PSA is currently in the normal range and will be followed carefully.The last PSA available to me was 3.03. Plan Of Treatment Medication Medication Name Sig Start Date Stop Date Notes Flonase Allergy Relief 50 MCG/ACT 1 spra y in each nostril Nasally Twice a day hydroCHLOROthiazide 25 MG 1 tablet in th e morning Orally Once a day 01/28/2025 Ketoconazole 2 % 1 application [employer] ally twice a day for 21 days 07/15/2025 11/17/2025 Loratadine 10 MG Oral Multi Vitamin - 1 tablet Orally Once a day Viagra 100 MG 1 tablet as needed Orally Once a day as needed Aspirin Adult Low Dose 81 MG 1 tablet Or ally Once a day Fish Oil 1000 MG 2 capsule Orally Onc e a day Finasteride 5 MG 1 tablet Orally Once a day Omeprazole 20 MG 1 tablet 30 minutes before morning meal Orally Once a day 09/08/2019 Atorvastatin Calcium 40 MG 1 tablet Oral ly Once a day 01/28/2025 Irbesartan 300 MG TAKE 1 TABLET BY JAKE TH DAILY Orally Once a day Pending Test Test Name Order Date PROFILE, FASTING (COMPREHENSIVE METABOLI C) 07/15/2025 PSA, TOTAL 07/15/2025 CBC w DIFF 07/15/2025 HIV AG/AB 07/15/2025 Lipid Panel 07/15/2025 Next Appt Details Follow Up: 3 Weeks, Reason: Telehealth Provider Name:Ramon Duenas , 09/21/2025 11:00:00 AM, [address] [place] [address], [address], Progress Notes * Kenny SOLANODOB:1960 ( 65 yo M)Acc No.[id number]:07/15/2025 Progress Notes Patient: Kenny ARROYO Provider: Chris Duenas MD :1960 A ge:65 Y S ex:Male Date:07/15/2025 Address:[address] [place] [address] [id number] Subjective: * Chief Complaints: * G enital and bilateral groin rash 2 weeks durationBenign prosthetic hypertrophyHyperlipidemiaHypertensionGERDElevated PSA * HPI: C OVID-19 Screening: The office for a scheduled visit for medical management. His main complaint today is a rash in both groins and in his pubic area. It has not responded to topical skin lotions. On examination today, he had a tinea cruris infection and was given a prescription for ketoconazole with a followup visit. He is concerned that his throat is scratchy but he has had no fevers or chills lately. This will be observed. His has had some heart trouble lately and he is concerned about her but she is at home at the current time.No new problems were identified today. Questions H ave you had any new onset fever, chills, cough, congestion, sore throat, shortness of breath, muscle aches? N o * ROS: G eneral/Constitutional: pain o nly normal aches and pains. C hills d enies.?Fatigue a dmits. F ever d enies. E NT: Decreased hearing m ild. R espiratory: Cough d enies. C ardiovascular: [...] S kin: Itching d enies. R elaine S uprapubic in both groins.?Skin lesion(s) d enies. N eurologic: Difficulty speaking d enies. D izziness d enies.?Headache d enies. L ow back pain d enies. P sychiatric: Depressed mood d enies. * Medical History: * Surgical History: B ENIGN CYST REMOVED 2004colonoscopy, benign findings 07/2018left fifth finger injury Laser surgery to releave pressure, right eye 4Preventative surgery for narrow angle glaucoma in right [...] x-cigarette smoker Cristina castro was born in [place], [place] and lives in [place]. He has been to [place] for 10 years. She is 20 years older than he is and has 4 children. He has no children. He works at [employer]. He has no toxic exposures. * Medications: T akingAtorvastatin Calcium 40 MG Tablet 1 tablet Orally Once a day Irbesartan [...] in the morning Orally Once a day Medication List reviewed and reconciled with the patientTaking Atorvastatin Calcium 40 MG Tablet 1 tablet [...] in the morning Orally Once a day Medication List reviewed and reconciled with the patient * Allergies: N eosporin: AllergyGrass Pollen Standardized ExtMoldDust MitesLatex: Allergyno[Allergies Verified] Objective: * Vitals: H t: 73, Wt:220, BMI:29.02, BP:134/77, HR:88, Temp:97.5, Wt-k.79. * Examination: G eneral Examination: GENERAL [...] no organomegaly, no mass: overweight. RECTAL EXAM: n ot examined. MUSCULOSKELETAL: e xtremities unremarkable, no clubbing, cyanosis or edema. PERIPHERAL PULSES: n ormal. NEUROLOGIC: a lert and oriented, cranial nerves 2-12 grossly intact, deep tendon reflexes 2+ symmetrical, motor strength normal upper and lower extremities, sensory exam intact. PSYCH: a lert, oriented. Assessment: * Assessment: 1. O verweight - E66.3 (Primary) N otes :We have discussed weight reduction strategies today. We discussed a healthy diet and nutrition. We made a plan to lose weight at a rate of one half of a pound per week through a diet restricted in fat calories and sodium combined with regular physical activity. 2 . B enign prostatic hyperplasia without lower urinary tract symptoms - N40.0? Notes :His nocturia has diminished since he began to employ lifestyle modification. 3 . M ixed hyperlipidemia - E78.2 N otes :His lipids are currently stable and no change in his regimen is needed. 4 . F ormer smoker - Z87.891 N otes :He has a plan in place to prevent relapse in times of stress and illness. 5 . G ERD without esophagitis - K21.9 N otes :He is going to take omeprazole 20 mg daily and uses a liquid antacid such as Maalox or Mylanta for breakthrough heartburn. 6 . E levated PSA - R97.20 N otes :His PSA is currently in the normal range and will be followed carefully.The last PSA available to me was 3.03. Plan: * Treatment: 2. B enign prostatic hyperplasia without lower urinary tract symptoms Continue Atorvastatin Calcium Tablet, 40 MG, 1 tablet, Orally, Once a day; C ontinue Loratadine Tablet, 10 MG, Oral; C ontinue Multi Vitamin Tablet, -, 1 tablet, Orally, Once a day; C ontinue Flonase Allergy Relief Suspension, 50 MCG/ACT, 1 spray in each nostril, Nasally, Twice a day;?Continue hydroCHLOROthiazide Tablet, 25 MG, 1 tablet in the morning, Orally, Once a day; S tart Ketoconazole Cream, 2 %, 1 application, Externally, twice a day, 21 days, 60 Gram, Refills 5.? L AB: PROFILE, FASTING (COMPREHENSIVE METABOLIC) L AB: PSA, TOTAL L AB: CBC w DIFF L AB: HIV AG/AB L AB: Lipid Panel 3. M ixed hyperlipidemia L AB: PROFILE, FASTING (COMPREHENSIVE METABOLIC) L AB: PSA, TOTAL L AB: CBC w DIFF L AB: HIV AG/AB L AB: Lipid Panel 4. O thers [...] of tobacco use and urged to quit. 1 * Follow Up: 3 Weeks (Reason: Telehealth) * Images: * Sign off status: Completed true * Provider: Chris Duenas MD Date: Generated for Printi ng/Carlyng/eTransmitting on: 11/15/2024 07:22 AM EST History and Physical [...]
--- OUTSIDE RECORDS SUMMARY | 2025-07-20 04:03 | XMS_ITS ---
Author Organization Ramon Duenas III, MD Address [address] [place] [address] [place] [address] Care Team Providers Care Process Plant Operator Name Role Phone Dr. Ramon Duenas III Primary Care Provider REASON FOR VISIT ? Reaction to Rx Social History Sex Assigned At : Social History Observation Description Sex Assigned At Male Encounters Encounter Location Date Provider Diagnosis Ramon Duenas III, MD [address] [place] [address] [place] [address] 07/20/2025 Ramon Duenas Plan Of Treatment Next Appt Details Provider Name:Ramon Duenas , 09/21/2025 11:00:00 AM, [address] [place] [address] [place], [place], [address], Progress Notes * Kenny DE LA FUENTEDOB:1960 ( 65 yo M)Acc No.[id number]:07/20/2025 Patient: Kenny ARROYO :1960 A ge:65 Y S ex:Male Address:[address] [place] [address] [place], [place], * true * Date: Generated for Printi ng/Faparkerg/eTransmitting on: 11/15/2024 07:21 AM EST
--- OUTSIDE RECORDS SUMMARY | 2025-08-05 06:00 | XMS_ITS ---
Author Organization Ramon Duenas III, MD Address [address] [place] [address] Care Team Providers Care Pecan Sheller Name Role Phone Dr. Ramon Duenas III Primary Care Provider Allergies Allergen (clinical drug ingredient) Drug/Non Drug Allergy documented on EMR Reaction Allergy Type Onset Date Status Grass Pollen Standardized Ext Unknown Drug Allergy Active Mold Unknown Allergy Active Dust Mites Unknown Allergy Active Latex Latex Unknown Allergy Active Neosporin Unknown Drug Allergy Active REASON FOR VISIT Tinea cruris groin rash, Benign prostatic hypertrophy, Hyperlipidemia, Hypertension, GERD Medications Medication SIG (Take, [...] JAKE TH DAILY Orally Once a day Active Finasteride 5 MG 1 tablet Orally Once a day Active Atorvastatin Calcium 40 MG 1 tablet Oral ly Once a day 01/28/2025 Active Ketoconazole 2 % 1 application Externally twice a day 07/15/2025 Active hydroCHLOROthiazide 25 MG 1 tablet in th e morning Orally Once a day 01/28/2025 Active Flonase Allergy Relief 50 MCG/ACT 1 spray in each nostril Nasally Twice a day Active Multi Vitamin - 1 tablet Orally Once a day Active Loratadine 10 MG Oral Act jared Omeprazole 20 MG 1 tablet 30 minutes before morning meal Orally Once a day 09/08/2019 Active Social History Tobacco Use: Social History [...] Additional Findings: Tobacco non-user Ex-cigaret te smoker Problems Problem Type SNOMED Code ICD Code Onset Dates Problem Status W/U Status Risk Notes Problem [id number] Tinea cruris (B35.6) Active confirmed He was advised to continue the ketoconazole cream until the rash resolves. Vital Signs Height 73 in 08/05/2025 Weight 220 lbs 08/05/2025 BMI 29.02 kg/m2 08/05/2025 Encounters Encounter Location Date Provider Diagnosis Ramon Duenas III, MD [address] [place] [address] [place] [address] 08/05/2025 Ramon Duenas Benign prostatic hyperplasia without lower urinary tract symptoms N40.0 ; Tinea cruris B35.6 ; Overweight E66.3 ; Former smoker Z87.891 and Essential hypertension I10 Assessments Encounter Date Diagnosis (ICD Code) Assessment Notes Treatment Notes Treatment Clinical Notes 08/05/2025 Benign prostatic hyperplasia without lower urinary tract symptoms (ICD-10 - N40.0) His nocturia has diminished since he began to employ lifestyle modification. 08/05/2025 Tinea cruris (ICD-10 - B35.6) He was advised to continue the ketoconazole cream until the rash resolves. 08/05/2025 Overweight (ICD-10 - E66.3) We have discussed weight reduction strategies today. We discussed a healthy diet and nutrition. We made a plan to lose weight at a rate of one half of a pound per week through a diet restricted in fat calories and sodium combined with regular physical activity. 08/05/2025 Former smoker (ICD-10 - Z87.891) He has a plan in place to prevent relapse in times of stress and illness. 08/05/2025 Essential hypertension (ICD-10 - I10) His blood pressure is currently stable at 130/70. No change in his regimen was necessary. I recommended weight reduction and sodium restriction. Although the systolic is slightly elevated he did not wish more medication. We reviewed the use of sodium restriction weight reduction is no activity in lowering blood pressure. Plan Of Treatment Medication Medication Name Sig Start Date Stop Date Notes Fish Oil 1000 MG 2 capsule Orally Onc e a day Aspirin Adult Low Dose 81 MG 1 tablet Or ally Once a day Viagra 100 MG 1 tablet as needed O rally Once a day as needed Irbesartan 300 MG TAKE 1 TABLET BY JAKE TH DAILY Orally Once a day Finasteride 5 MG 1 tablet Orally Once a day Atorvastatin Calcium 40 MG 1 tablet Oral ly Once a day 01/28/2025 Ketoconazole 2 % [address] Man ally twice a day 07/15/2025 hydroCHLOROthiazide 25 MG 1 tablet in th e morning Orally Once a day 01/28/2025 Flonase Allergy Relief 50 MCG/ACT 1 spra y in each nostril Nasally Twice a day Multi Vitamin - 1 tablet Orally Once a day Loratadine 10 MG Oral Omeprazole 20 MG 1 tablet 30 minutes before morning meal Orally Once a day 09/08/2019 Next Appt Details Follow Up: As Scheduled, Trena son: Annual Exam Provider Name:Ramon Duenas , 09/21/2025 11:00:00 AM, [address] [place] [address], [id number], Progress Notes * Kenny SOLANODOB:1960 ( 65 yo M)Acc No.[id number]:08/05/2025 Patient: Kenny ARROYO Provider: Chris Duenas MD :1960 A ge:65 Y S ex:Male Date:08/05/2025 Address:[address] [place], [place] [id number] Subjective: * Chief Complaints: * T inea cruris groin rashBenign prostatic hypertrophyHyperlipidemiaHypertensionGERD * HPI: * : This telehealth visit took place over 15 minutes with the patient at home and me in my office. He gave consent for billing. This is a follow-up of a in extensive tinea groin rash which was bilateral now being treated with ketoconazole. He reports a rash has started to become better but has not resolved. He was advised to continue the medication until the rash has resolved. He was reassured that it would be safe. He will return to the office in the near future remeasure his vital signs and control his blood pressure. All of his questions were answered at length today. Telehealth L ocation of provider rendering services: { ...} [address] [facility] [address] L ocation of patient: rubin alexander listed in demographics for today's visit P atient identification confirmed using: DRAGAN Jernigan ame elehealth method: T elephone only. Patient not visible to care provider. C onsent: P atient verbally consented to treatment, Patient verbally consented to billing insurance company, Patient informed of any privacy concerns related to method of visit T otal time spent with patient (mins) 1 5 * ROS: G eneral/Constitutional: pain o nly [...] S kin: Itching d enies. R elaine B eginning to resolve. S kin lesion(s) d enies. N eurologic: Difficulty speaking [...] x-cigarette smoker Cristina castro was born in [place], [place] and lives in [place]. He has been to [place] for 10 years. She is 20 years older than he is and has 4 children. He has no children. He works at [employer]. He has no toxic exposures. * Medications: [...] in the morning Orally Once a day Ketoconazole 2 % Cream 1 application Externally twice a day , stop date 11/17/2025Medication List reviewed and reconciled with the patientTaking [...] the morning Orally Once a day Taking Ketoconazole 2 % Cream 1 application Externally twice a day , stop date 11/17/2025Medication List reviewed and reconciled with the patient * Allergies: N eosporin: AllergyGrass Pollen Standardized ExtMoldDust MitesLatex: Allergyno[Allergies Verified] Objective: * Vitals: H t: 73, Wt:220, BMI:29.02, Ht-cm: 185.42, Wt-k.79. Assessment: * Assessment: 1. T asfi [place] - B35.6 (Primary) N otes :He was advised to continue the ketoconazole cream until the rash resolves. 2 . B enign prostatic hyperplasia without lower urinary tract symptoms - N40.0? Notes :His nocturia has diminished since he began to employ lifestyle modification. 3 . O verweight - E66.3 N otes :We have discussed weight reduction strategies today. We discussed a healthy diet and nutrition. We made a plan to lose weight at a rate of one half of a pound per week through a diet restricted in fat calories and sodium combined with regular physical activity. 4 . F ormer smoker - Z87.891 N otes :He has a plan in place to prevent relapse in times of stress and illness. 5 . E ssential hypertension - I10 N otes :His blood pressure is currently stable at 130/70. No change in his regimen was necessary. I recommended weight reduction and sodium restriction. Although the systolic is slightly elevated he did not wish more medication. We reviewed the use of sodium restriction weight reduction is no activity in lowering blood pressure. Plan: * Treatment: 2. O thers Continue [...] Orally, Once a day. * Procedure Codes: 9 8012 SYNCH AUDIO-ONLY EST SF 10 * Preventive Medicine: Counseling: C are goal follow-up plan: Counseling for abnormal BMI given Y es Above Normal BMI Follow-up D ietary management education, guidance, and counseling S moking/Tobacco Use Patient counseled on the dangers of tobacco use and urged to quit. 1 10/05/2024 * Follow Up: A s Scheduled (Reason: Annual Exam) * Images: * Sign off status: Completed true * Provider: Chris Duenas MD Date: 1 10/05/2024 Generated for Delvin hawkins/Bennett/eLannasmitting on: 11/15/2024 07:21 AM EST History and Physical Notes * HPI (History of Present Illness) Category Sub-Category Detail Notes Telehealth Location of [facility] rendering services:: {...} [address] [place], [place] [id number] Location of patient:: address listed in demographics for today's visit Patient identification confirmed using:: Name, Telehealth method:: Telephone only. Delmi ent not visible to care provider. Consent:: Patient verbally c onsented to treatment, Patient verbally consented to billing insurance company, Patient informed of any privacy concerns related to method of visit Total time spent with patient (mins): 15
--- OUTSIDE RECORDS SUMMARY | 2025-08-10 04:04 | XMS_ITS ---
Author Organization Ramon Duenas III, MD Address [address] [place] [address] [place] [address] Care Team Providers Care Fish Cleaner Machine Tender Name Role Phone Dr. Ramon Duenas III Primary Care Provider REASON FOR VISIT ? Urgent Care Visit Social History Sex Assigned At : Social History Observation Description Sex Assigned At Male Encounters Encounter Location Date Provider Diagnosis Ramon Duenas III, MD [address] [place] [address] [place] [address] 08/10/2025 Ramon Duenas Plan Of Treatment Next Appt Details Provider Name:Ramon Duenas , 09/21/2025 11:00:00 AM, [address] [place] [address] [address], [place], [phone], Progress Notes * Kenny DE LA FUENTEDOB:1960 ( 65 yo M)Acc No.[id number]:08/10/2025 Patient: Kenny ARROYO :1960 A ge:65 Y S ex:Male Address:[address] [place] [address], * true * Date: Generated for Printi shruthi/Faparkerg/eTransmitting on: 11/15/2024 07:22 AM EST
--- OUTSIDE RECORDS SUMMARY | 2025-09-14 07:21 | XMS_ITS | Patient Health Record ---
Author Organization Ramon Duenas III, MD Address [address] [place] [address] Care Team Providers Care Injection Mold Tooling Technician Name Role Phone Dr. Ramon Duenas III Primary Care Provider [phone] Allergies Allergen (clinical drug ingredient) Drug/Non Drug Allergy documented on EMR Reaction Allergy Type Onset Date Status Grass Pollen Standardized Ext Unknown Drug Allergy Active Mold Unknown Allergy Active Latex Latex Unknown Allergy Active Dust Mites Unknown Allergy Active Neosporin Unknown Drug Allergy Active Results Component Value Reference Range Notes URINE DIP STICK Reviewed date:09/15/2024 10:57:37 AM Interpretation: Performing Lab: Notes/Report: SG 1.005 1.005 - 1.025 pH 6.5 5.0 - 9.0 DASH Negative Negative - NIT Negative Negative - PRO 15 Negative - Trace GLU Negative Negative - KET Negative Negative - UBG 0.2 0.1 - 1.8 JUANY Negative 0.2 - 1.3 BLD Negative Negative - Reason For Referral No Information Medications Medication [...] Active Loratadine 10 MG Oral Act jared Atorvastatin Calcium 40 MG 1 tablet Oral [...] tablet Orally Once a day Active Omeprazole 40 mg TAKE 1 CAPSULE ONCE DAILY ONE-HALF (1/2) HOUR BEFORE BREAKFAST Active Immunizations Vaccine Route Administration Date Status Comme nts Influenza, quad IM Intramuscular 06/16/2020 Administered SHINGRIX Unknown 08/29/2019 Administered Flu-IIv4pf Unknown 07/10/2022 Administered SHINGRIX Unknown 06/10/2019 Administered COVID Pfizer Bivalent Unknown 07/10/2022 Administered COVID PFIZER Unknown 12/03/2020 Administered COVID PFIZER Unknown 07/01/2021 Administered COVID PFIZER Unknown 12/27/2020 Administered Influenza no Preserv 3 and > Unknown 06/27/2014 Administered Flu-IIv4pf Unknown 06/14/2021 Administered Influenza no Preserv 3 and > Unknown 07/17/2016 Administered COMIRNATY Pfizer-BioNTech Unknown 01/17/2022 Administer ed Comirnaty Pfizer COVID-19 12+ Unknown 09/19/2023 Administered Fluzone High-Dose (HD-IIV3) Unknown 05/21/2024 Administered Comirnaty Pfizer COVID-19 12+ Unknown 05/21/2024 Administered Social History Tobacco Use: Social History [...] Additional Findings: Tobacco non-user Ex-cigaret te smoker AUDIT-C (Standard) Question Answer Notes Did you have a drink contain ing alcohol in the past year? Yes How often did you have six o r more drinks on one occasion in the past year? 2 to 3 times per week (3 points) How many drinks did you have on a typical day when you were drinking in the past year? 1 or 2 drinks (0 point) How often did you have a dri nk containing alcohol in the past year? Never (0 point) Points 3 Interpretation Negative Problems Problem Type SNOMED Code ICD Code Onset Dates Problem Status W/U Status Risk Notes Problem 8173309 Former smoker (Z87.891) Active confirmed He has a plan in place to prevent relapse in times of stress and illness. Problem 720365750 Overweight (E66.3) Active confirmed We have discussed weight reduction strategies today. We discussed a healthy diet and nutrition. We made a plan to lose weight at a rate of one half of a pound per week through a diet restricted in fat calories and sodium combined with regular physical activity. Problem 833548702 Tinea cruris (B35.6) Active confirmed He was advised to continue the ketoconazole cream until the rash resolves. Problem 795129475 Mixed hyperlipidemia (E78.2) Active confirmed His lipids are currently stable and no change in his regimen is needed. Problem 513019174 GERD without esophagitis (K21.9) Active confirmed He is going to take omeprazole 20 mg daily and uses a liquid antacid such as Maalox or Mylanta for breakthrough heartburn. Problem 34258786 Essential hypertension (I10) Active confirmed His blood pressure is currently stable at 130/70. No change in his regimen was necessary. I recommended weight reduction and sodium restriction. Although the systolic is slightly elevated he did not wish more medication. We reviewed the use of sodium restriction weight reduction is no activity in lowering blood pressure. Problem Genital warts (513627146) Genital warts (A63.0) Active confirmed The anal area was examined today and no warts were noted. Problem 475045860 Benign prostatic hyperplasia without lower urinary tract symptoms (N40.0) Active confirmed His nocturi a has diminished since he began to employ lifestyle modification. Problem 668845350 Elevated PSA (R97.20) Active confirmed His PSA is currently in the normal range and will be followed carefully.The last PSA available to me was 3.03. Problem 284776357 Angle-closure glaucoma, indeterminate stage (H40.20X4) Active confirmed In the near future he is scheduled to have laser surgery on the right eye to create a small opening in the iris to relieve pressure. This will be done by his ophthalmologis t. Vital Signs Heart Rate 88 /min 07/15/2025 Temperature 97.5 degrees Fahrenheit 07/15/2025 Blood pressure diastolic 77 mm Hg 07/15/2025 Height 73 in 08/05/2025 Blood pressure systolic 134 mm Hg 07/15/2025 Weight 220 lbs 08/05/2025 BMI 29.02 kg/m2 08/05/2025 Encounters Encounter Location Date Provider Diagnosis Ramon Duenas III, MD [address] [place] [address] [place] [id number] 09/15/2024 Ramon Diazne Benign prostatic hyperplasia without lower urinary tract symptoms N40.0 ; Essential hypertension I10 ; Overweight E66.3 ; Mixed hyperlipidemia E78.2 ; GERD without esophagitis K21.9 ; Elevated PSA R97.20 ; Former smoker Z87.891 and Angle-closure glaucoma, indeterminate stage H40.20X4 Ramon Duenas III, MD [address] [place] [address] [place] [phone] 01/14/2025 Ramon Diazne Benign prostatic hyperplasia without lower urinary tract symptoms N40.0 ; Genital warts A63.0 ; Mixed hyperlipidemia E78.2 ; GERD without esophagitis K21.9 ; Essential hypertension I10 ; Former smoker Z87.891 and Overweight E66.3 Ramon Duenas III, MD [address] [place] [address] [place] [phone] 01/28/2025 Ramon Glassrne Benign prostatic hyperplasia without lower urinary tract symptoms N40.0 ; Essential hypertension I10 ; Mixed hyperlipidemia E78.2 ; GERD without esophagitis K21.9 ; Former smoker Z87.891 and Overweight E66.3 Ramon Duenas III, MD [address] [place] [address] [place] [phone] 02/20/2025 Ramon Diazne Benign prostatic hyperplasia without lower urinary tract symptoms N40.0 ; Mixed hyperlipidemia E78.2 ; GERD without esophagitis K21.9 ; Essential hypertension I10 ; Former smoker Z87.891 and Overweight E66.3 Ramon Duenas III, MD [address] [place] [address] [place] [phone] 06/16/2025 Ramon Diazne Benign prostatic hyperplasia without lower urinary tract symptoms N40.0 ; Essential hypertension I10 ; Mixed hyperlipidemia E78.2 ; Overweight E66.3 ; Former smoker Z87.891 ; GERD without esophagitis K21.9 ; Elevated PSA R97.20 ; Other hemorrhoids K64.8 and Genital warts A63.0 Ramon Duenas III, MD [address] [place] [address] [place] [phone] 07/15/2025 Ramon Duenas Benign prostatic hyperplasia without lower urinary tract symptoms N40.0 ; Overweight E66.3 ; Mixed hyperlipidemia E78.2 ; Former smoker Z87.891 ; GERD without esophagitis K21.9 and Elevated PSA R97.20 Ramon Duenas III, MD [address] [place] [address] [place] [phone] 08/05/2025 Ramon Duenas Benign prostatic hyperplasia without lower urinary tract symptoms N40.0 ; Tinea cruris B35.6 ; Overweight E66.3 ; Former smoker Z87.891 and Essential hypertension I10 Ramon Duenas III, MD [address] [place] [address] [place] [phone] 10/13/2024 Ramon Duenas III, MD [address] [place] [address] [place] [phone] 12/04/2024 Ramon Duenas III, MD [address] [place] [address] [place] [phone] 12/04/2024 Ramon Duenas III, MD [address] [place] [address] [place] [phone] 06/01/2025 Ramon Duenas Benign prostatic hyperplasia without lower urinary tract symptoms N40.0 Ramon Duenas III, MD [address] [place] [address] [place] [phone] 07/20/2025 Ramon Duenas III, MD [address] [place] [address] [place] [phone] 08/10/2025 Ramon Duenas Assessments Encounter Date Diagnosis (ICD Code) Assessment Notes Treat ment Notes Treatment Clinical Notes 09/15/2024 Essential hypertension (ICD-10 - I10) His blood pressure is currently stable at 136/80. No change in his regimen was necessary. I recommended weight reduction and sodium restriction. Although the systolic is slightly elevated he did not wish more medication. We reviewed the use of sodium restriction weight reduction is no activity in lowering blood pressure. 09/15/2024 Benign prostatic hyperplasia without lower urinary tract symptoms (ICD-10 - N40.0) His nocturia has diminished since he began to employ lifestyle modification. 01/14/2025 Genital warts (ICD-10 - A63.0) He has not had a recurrence since his initial treatment.He is up-to-date with his visits to urology 01/14/2025 Benign prostatic hyperplasia without lower urinary [...] no activity in lowering blood pressure. 01/28/2025 Benign prostatic hyperplasia without lower urinary tract symptoms (ICD-10 - N40.0) His nocturia has diminished since he began to employ lifestyle modification. 02/20/2025 Mixed hyperlipidemia (ICD-10 - E78.2) His lipids are currently stable. I recommend aggressive weight loss and a diet restrricted in calories and sodium combined with regular physical activity.He will continue on the 80 mg dose of atorvastatin. 02/20/2025 Benign prostatic hyperplasia without lower urinary [...] no activity in lowering blood pressure. 06/16/2025 Benign prostatic hyperplasia without lower urinary [...] sodium combined with regular physical activity. 07/15/2025 Benign prostatic hyperplasia without lower urinary tract symptoms (ICD-10 - N40.0) His nocturia has diminished since he began to employ lifestyle modification. 08/05/2025 Tinea cruris (ICD-10 - B35.6) He was advised to continue the ketoconazole cream until the rash resolves. 08/05/2025 Benign prostatic hyperplasia without lower urinary tract symptoms (ICD-10 - N40.0) His nocturia has diminished since he began to employ lifestyle modification. 06/01/2025 Benign prostatic hyperplasia without lower urinary tract symptoms (ICD-10 - N40.0) His nocturia has diminished since he began to employ lifestyle modification. 09/15/2024 Overweight (ICD-10 - E66.3) He remains somewhat overweight. He has gained 5 pounds and his body mass index is 28.9We discussed his diet and his nutrition. We made a plan to lose weight at a rate of one half of a pound per week through a diet restricted in calories. I recommended regular physical activity as well. 01/14/2025 Mixed hyperlipidemia (ICD-10 - E78.2) His lipids are currently stable with a total cholesterol 219. His triglycerides are 144. I recommend aggressive weight loss and a diet restrricted in calories and sodium combined with regular physical activity.He will continue on the 80 mg dose of atorvastatin. 01/28/2025 Mixed hyperlipidemia (ICD-10 - E78.2) His [...] Maalox or Mylanta for breakthrough heartburn. 06/16/2025 Mixed hyperlipidemia (ICD-10 - E78.2) Comprehensive blood work is due and indicated. Fasting lipid profile will be part of this in the near future. 07/15/2025 Mixed hyperlipidemia (ICD-10 - E78.2) His lipids are currently stable and no change in his regimen is needed. 08/05/2025 Overweight (ICD-10 - E66.3) We have discussed weight reduction strategies today. We discussed a healthy diet and nutrition. We made a plan to lose weight at a rate of one half of a pound per week through a diet restricted in fat calories and sodium combined with regular physical activity. 09/15/2024 Mixed hyperlipidemia (ICD-10 - E78.2) His lipids are currently stable with a total cholesterol 219. His triglycerides are 144. I recommend aggressive weight loss and a diet restrricted in calories and sodium combined with regular physical activity. 01/14/2025 GERD without esophagitis (ICD-10 - K21.9) He is going to take omeprazole 20 mg daily and uses a liquid antacid such as Maalox or Mylanta for breakthrough heartburn. 01/28/2025 GERD without esophagitis (ICD-10 - K21.9) [...] no activity in lowering blood pressure. 06/16/2025 Overweight (ICD-10 - E66.3) His body mass index is 28.3. He has lost 3 pounds. We discussed his diet and nutrition and made plans to continue weight loss at a rate of one half 07/15/2025 Former smoker (ICD-10 - Z87.891) He has a plan in place to prevent relapse in times of stress and illness. 08/05/2025 Former smoker (ICD-10 - Z87.891) He has a plan in place to prevent relapse in times of stress and illness. 09/15/2024 GERD without esophagitis (ICD-10 - K21.9) He [...] no activity in lowering blood pressure. 01/28/2025 Former smoker (ICD-10 - Z87.891) He has a plan in place to prevent relapse in times of stress and illness. 02/20/2025 Former smoker (ICD-10 - Z87.891) He has a plan in place to prevent relapse in times of stress and illness. 06/16/2025 Former smoker (ICD-10 - Z87.891) He has a plan in place to prevent relapse in times of stress and illness. 07/15/2025 GERD without esophagitis (ICD-10 - K21.9) He is going to take omeprazole 20 mg daily and uses a liquid antacid such as Maalox or Mylanta for breakthrough heartburn. 08/05/2025 Essential hypertension (ICD-10 - I10) His blood pressure is currently stable at 130/70. No change in his regimen was necessary. I recommended weight reduction and sodium restriction. Although the systolic is slightly elevated he did not wish more medication. We reviewed the use of sodium restriction weight reduction is no activity in lowering blood pressure. 09/15/2024 Elevated PSA (ICD-10 - R97.20) His PSA is currently in the normal range and will be followed carefully. 01/14/2025 Former smoker (ICD-10 - Z87.891) He has [...] I recommended regular physical activity as well. 02/20/2025 Overweight (ICD-10 - E66.3) His weight is 219 which is stable and his body mass index is 28.9We discussed his diet and his nutrition. We made a plan to lose weight at a rate of one half of a pound per week through a diet restricted in calories. I recommended regular physical activity as well. 06/16/2025 GERD without esophagitis (ICD-10 - K21.9) He is going to take omeprazole 20 mg daily and uses a liquid antacid such as Maalox or Mylanta for breakthrough heartburn. 07/15/2025 Elevated PSA (ICD-10 - R97.20) His PSA is currently in the normal range and will be followed carefully.The last PSA available to me was 3.03. 09/15/2024 Former smoker (ICD-10 - Z87.891) He has [...] I recommended regular physical activity as well. 06/16/2025 Elevated PSA (ICD-10 - R97.20) His PSA is currently in the normal range and will be followed carefully. 09/15/2024 Angle-closure glaucoma, indeterminate stage (ICD-10 - H40.20X4) In the near future he is scheduled to have laser surgery on the right eye to create a small opening in the iris to relieve pressure. This will be done by his manufacturing quality manager. 06/16/2025 Other hemorrhoids (ICD-10 - K64.8) Another hemorrhoid has been detected. He will be treated with hydrocortisone cream. There was no bleeding. 06/16/2025 Genital warts (ICD-10 - A63.0) The anal area was examined today and no warts were noted. Plan Of Treatment Pending Test Test Name Order Date PROFILE, FASTING (COMPREHENSIVE METABOLI C) 10/13/2019 PROFILE, FASTING (COMPREHENSIVE METABOLI C) 02/13/2022 PROFILE, FASTING (COMPREHENSIVE METABOLI C) 07/15/2025 PROFILE, FASTING (COMPREHENSIVE METABOLI C) 06/16/2025 PROFILE, FASTING (COMPREHENSIVE METABOLI C) 07/18/2021 PROFILE, FASTING (COMPREHENSIVE METABOLI C) 02/14/2021 PROFILE, FASTING (COMPREHENSIVE METABOLI C) 09/10/2023 PROFILE, RANDOM (COMPREHENSIVE METABOLIC ) 11/15/2021 PROFILE, RANDOM (COMPREHENSIVE METABOLIC ) 09/08/2019 LIPID PANEL 10/13/2019 LIPID PANEL 02/13/2022 LIPID PANEL 09/08/2019 LIPID PANEL 02/14/2021 PSA, TOTAL 07/15/2025 PSA, TOTAL 02/13/2022 PSA, TOTAL 06/16/2025 CBC w DIFF 02/14/2021 CBC w DIFF 10/13/2019 CBC w DIFF 11/15/2021 CBC w DIFF 07/15/2025 CBC w DIFF 09/08/2019 CBC w DIFF 02/13/2022 CBC w DIFF 07/18/2021 CBC w DIFF 06/16/2025 HIV AG/AB 06/23/2024 HIV AG/AB 10/13/2019 HIV AG/AB 11/15/2021 HIV AG/AB 07/15/2025 HIV AG/AB 09/08/2019 CBC WITH AUTO DIFF 09/10/2023 Lipid Panel 09/10/2023 Lipid Panel 07/15/2025 Lipid Panel 07/18/2021 Lipid Panel 06/16/2025 HIV Ab/Ag 09/26/2021 HIV Ab/Ag 02/14/2021 HIV Ab/Ag 06/15/2022 Next Appt Details Provider Name:Ramon Diazne , 09/21/2025 11:00:00 AM, [address] [place] [address] [address], [address], [place], [address], Insurance Providers Payer Name Payer Address Payer Phone Subscriber Number Group Number Insured Name Patient Relationship to Insured Coverage Start Date Coverage End Date MEDICARE NGS [address] [place] [address] [id number] Kenny Solano [place] - [place] [address] [id number] Kenny Solano Self - patient is the insured Medical (General) History Medical History History ICD Code Other prostatic inflammatory diseases N4 1.8 hyperlipidemia GERD essential hypertension, onset age 23 dilated ascending aorta elevated PSA overweight 2003 benign cyst, left forehead former smoker Narrow angle glaucoma November 2023 1 adenomatous colonic polyp Surgical History Surgery Date(Month/Year) Colonoscopy, Dr. Polo, one adenomatous polyp 11/2023 Preventative surgery for narrow angle gl aucoma in right eye Laser surgery to releave pressure, right eye 07/2024 left fifth finger injury colonoscopy, benign findings 07/2018 BENIGN CYST REMOVED 2003 Hospitalization History Reason Date(Month/Year) No history
--- OUTSIDE RECORDS SUMMARY | 2025-09-14 07:22 | XMS_ITS | Clinical Summary ---
Author Organization [facility] Address [address] [place] [id number] Care Team Providers Care Power Systems Engineer Name Role Phone Kin Haddad MD Primary Care Provider [phone] Allergies Active Allergy Reactions Criticality Noted Date Comments Latex Itching Low 01/25/2017 Medications oxyCODONE (OXY-IR) 5 MG capsule Take 1 capsule (5 mg total) by mouth every 4 (four) hours as needed for moderate pain. Max Daily Amount: 30 mg 18 capsule 0 01/25/2017 Active Immunizations Immunization Administration Dates Next Due Tdap 01/25/2017 Social History Tobacco Use Types Packs/Day Years Used Date Smoking Tobacco: Never Assessed Sex and Gender Information Value Date Recorded Sex Assigned at Not on file Legal Sex Male 4:38 PM EDT Gender Identity Not on file Sexual Orientation Not on file Plan of Treatment Health Maintenance Due Date Last Done Comments Advance Care Planning 1960 Hepatitis C Virus Screening 1960 Colonoscopy 2003 Pneumococcal Vaccines 50+ (1 of 1 - PCV) 2008 Zoster (Shingles) Vaccine (1 of 2) 2008 Influenza Vaccine 04/24/2025 COVID-19 Vaccine (1 - 2024-2 6 season) 2025 DTaP/Tdap/Td Vaccines (2 - T d or Tdap) 01/25/2027 01/25/2017 RSV Vaccine 50 years and old er and Patients (1 - 1-dose 75+ series) 2033 Hepatitis B Vaccines Aged Out No long er eligible based on patient's age to complete this topic Insurance [facility] PPO [employer] Care Teams Power Systems Engineer Relationship Specialty Start Date End Date Kin Haddad MD [facility] [address] [place] [address] PCP - General Family Medicine 01/25/17
[2025-09-14 07:26] LABS: MANUAL DIFF FLAG NO
[2025-09-14 08:02] LABS: Hematocrit 46.2 % (42.0-52.0); Hemoglobin 15.6 g/dl (14.0-18.0); Imm Gran Abs Auto 0.10 X10*3/uL (0.00-0.03); Imm Gran Pct Auto 1.1 % (0.0-0.4); Lymphocytes Absolute Auto 1.6 X10*3/uL (1.2-4.9); Mean Corpuscular HGB Conc 33.8 g/dl (31.0-36.0); Mean Corpuscular Hemoglobin 30.1 pg (27.0-33.0); Mean Corpuscular Volume 89.0 fL (80.0-98.0); NRBC Abs Auto 0.000 X10*3/uL (0.0-0.012); NRBC Pct Auto 0.0 /100WBC (0.0-0.2); Platelet Count 329 X10*3/uL (160-400); Red Blood Count 5.19 X10*6/uL (4.60-5.80); White Blood Count 8.7 X10*3/uL (4.8-10.8)
[2025-09-14 08:39] LABS: Alanine Aminotransferase 43 U/L (0-40); Albumin Level 4.8 g/dL (3.5-5.0); Alkaline Phosphatase 92 U/L (39-117); Anion Gap 14 (12-20); Aspartate Amino Transferase 28 U/L (5-37); Blood Urea Nitrogen 14 mg/dL (9-16); Calcium 9.7 mg/dL (8.4-10.2); Carbon Dioxide 28 mmol/L (22-29); Chloride 105 mmol/L (96-108); Cholesterol 191 mg/dL (<200); Estimated Glomerular Filt Rate 60; HDL Cholesterol 48 mg/dL (>40); Potassium 3.9 mmol/L (3.3-5.1); Sodium 143 mmol/L (135-145); Total Protein 7.2 g/dL (6.5-8.0); Triglycerides 107 mg/dL (<150)
[2025-09-14 08:56] LABS: Prostate Specific Antigen 4.06 ng/mL (<0.05-4.0)
[2025-09-14 08:57] LABS: HIV Num 1 0.07 S/CO (0.00-0.99)
== END 2025-09-14 07:15 | disposition home or self-care (01) ==
LOC: HO.LAB 07:14
PROVIDERS: PCP Internal Medicine Medical Oncology; Visit Provider Internal Medicine Medical Oncology
DX: N40.0 Benign prostatic hyperplasia without lower urinary tract symptoms (principal); E66.3 Overweight; E78.2 Mixed hyperlipidemia; Z20.6 Contact with and (suspected) exposure to human immunodeficiency virus [HIV]; Z12.5 Encounter for screening for malignant neoplasm of prostate
CPT/HCPCS: 36415; 80053; 80061; 84153; 85025; 87389